=== PATIENT | female | born 1940 | race Caucasian/White ===

== ENCOUNTER → 2016-09-27 | Outpatient (CLI) | payer OTHER, BC ==
[~2016-09-27] MED LIST: ACET-1256 PO; ASPI81TA21 PO; ATOR-54 PO; B-CO1CAP5 PO; BIOT1TAB7 PO; CALCTAB65 PO; CHOL20005 PO; COEN1CAP10 PO; MAGNTAB17 PO; MULT-506 PO; OXYC1TAB3 PO; RXC5 PO; SNK PO
[2016-09-27 17:39] LABS: ALT/SGPT 24 U/L (12-78); BLOOD UREA NITROGEN 11 mg/dl (7-18); BUN/CREATININE RATIO 15.9 (10-20); CARBON DIOXIDE 25 mmol/L (21-32); CHLORIDE 108 mmol/L (98-107); CHOLESTEROL 205 mg/dl (0-200); CREATININE 0.69 mg/dl (0.60-1.20); GLUCOSE 83 mg/dl (70-99); POTASSIUM 4.1 mmol/L (3.5-5.1); SODIUM 144 mmol/L (136-145); TRIGLYCERIDES 137 mg/dl (0-150); VERY LOW DENSITY LIPOPROT CALC 27 mg/dl
[2016-09-27 17:42] LABS: ALB/GLOB RATIO 1.1 (0.9-2); ALKALINE PHOSPHATASE 66 U/L (45-117); AST/SGOT 13 U/L (15-37); CHOLESTEROL/HDL RATIO 3.3; HDL CHOLESTEROL 62 mg/dl; LDL CHOLESTEROL CALCULATED 116 mg/dl
== END | disposition home or self-care (01) ==
LOC: C.LABPVFM 14:33
PROVIDERS: ATTEND Family Medicine
DX: I10 Essential (primary) hypertension (principal); E78.5 Hyperlipidemia, unspecified; M85.80 Other specified disorders of bone density and structure, unspecified site; E55.9 Vitamin D deficiency, unspecified

== ENCOUNTER → 2016-11-18 | Outpatient (CLI) | payer OTHER, BC ==
--- NOTE | 2016-11-18 14:30 | MAMMOGRAPHY REPORT ---
UNILATERAL LEFT DIGITAL DIAGNOSTIC MAMMOGRAM TOMOSYNTHESIS WITH CAD AND TARGETED LEFT ULTRASOUND: CLINICAL HISTORY: The patient reports left breast pain for approximately 3 weeks, which started out as shooting pain across the breast and is now an intermittent dull pain. She denies a palpable lump . Reports a family history of breast cancer in her mother. TECHNIQUE: Breast tomosynthesis in addition to standard 2D mammography was performed. Current study was also evaluated with a Computer Aided Detection (CAD) system. Left CC and MLO 2-D and tomosynth esis images were obtained. COMPARISON: Comparison is made to exams dated: 01/04/2016 mammogram, 01/01/2015 mammogram, 11/04/2013 ma mmogram, 11/02/2012 mammogram, 10/19/2011 mammogram, and 09/22/2010 mammogram - [facility]ter. BREAST COMPOSITION: The tissue of the left breast is heterogeneously dense, which may obscure small masses. FINDINGS: There are no suspicious masses, calcifications, or areas of architectural distortion noted in the left breast. There has been no significant interval change compared to prior exams. Scatte red benign-appearing calcifications are stable. Targeted ultrasound was performed of the areas of pain pointed out by the patient, involving the lef t 3:00, 9:00, in subareolar breast as well as left upper inner quadrant. No suspicious masses or ot her suspicious sonographic abnormalities are evident. IMPRESSION: ACR BI-RADS CATEGORY 2: BENIGN, TARGETED ULTRASOUND ACR BI-RADS CATEGORY 2: BENIGN No suspicious mammographic or sonographic abnormality to explain left breast pain. There is no mamm ographic or targeted sonographic evidence of malignancy. Recommend clinical follow-up for breast pa in, and recommend routine bilateral exam exams which are due January 2017. The patient has been verball y notified of the results. Approximately 10% of breast cancers are not detected with mammography. A negative mammographic repor t should not delay biopsy if a clinically suggestive mass is present. Patti Rivera M.D. /:11/18/2016 08:53:15 [employer]: [employer], [facility] letter sent: Normal 1/2 BI-RADS Code: ACR BI-RADS Category 2: Benign Ultrasound BI-RADS: ACR BI-RADS Category 2: Benign
== END | disposition home or self-care (01) ==
LOC: C.MAMM 08:17
PROVIDERS: ATTEND Obstetrics & Gynecology
DX: R92.2 Inconclusive mammogram (principal); N64.4 Mastodynia; Z80.3 Family history of malignant neoplasm of breast

== ENCOUNTER → 2017-01-16 | Outpatient (CLI) | payer OTHER, BC ==
[2017-01-16 13:35] LABS: ALT/SGPT 24 U/L (12-78); BLOOD UREA NITROGEN 11 mg/dl (7-18); BUN/CREATININE RATIO 14.9 (10-20); CARBON DIOXIDE 29 mmol/L (21-32); CHLORIDE 105 mmol/L (98-107); CHOLESTEROL 196 mg/dl (0-200); CREATININE 0.71 mg/dl (0.60-1.20); GLUCOSE 90 mg/dl (70-99); POTASSIUM 4.2 mmol/L (3.5-5.1); SODIUM 140 mmol/L (136-145); TRIGLYCERIDES 102 mg/dl (0-150); VERY LOW DENSITY LIPOPROT CALC 20 mg/dl
[2017-01-16 13:38] LABS: ALB/GLOB RATIO 1.2 (0.9-2); ALKALINE PHOSPHATASE 62 U/L (45-117); AST/SGOT 20 U/L (15-37); CHOLESTEROL/HDL RATIO 3.6; HDL CHOLESTEROL 55 mg/dl; LDL CHOLESTEROL CALCULATED 121 mg/dl
[2017-01-16 13:58] LABS: CALCIUM 10.2 mg/dl (8.5-10.1)
== END | disposition home or self-care (01) ==
LOC: C.LABPVFM 09:24
PROVIDERS: ATTEND Family Medicine
DX: E55.9 Vitamin D deficiency, unspecified (principal); E78.5 Hyperlipidemia, unspecified; I10 Essential (primary) hypertension; M85.80 Other specified disorders of bone density and structure, unspecified site

== ENCOUNTER → 2017-02-02 | Outpatient (CLI) | payer OTHER, BC | END | disposition home or self-care (01) | LOC: C.MAMM 13:06 | PROVIDERS: ATTEND Family Medicine | DX: M85.89 Other specified disorders of bone density and structure, multiple sites (principal); E55.9 Vitamin D deficiency, unspecified ==

== ENCOUNTER → 2017-10-09 | Outpatient (CLI) | payer OTHER, BC ==
[2017-10-09 12:36] LABS: HEMATOCRIT 47.2 % (37-47); HEMOGLOBIN 15.8 g/dL (12.0-16.0); MEAN CELL VOLUME 90.2 fL (80-100); MEAN CORPUSCULAR HEMOGLOBIN 30.2 pg (25-34); MEAN CORPUSCULAR HGB CONC 33.5 g/dl (32-36); MEAN PLATELET VOLUME 11.2 fL (7.4-10.4); PLATELET COUNT 223 K/uL (130-400); RED CELL DISTRIBUTION WIDTH CV 15.1 % (11.5-14.5); RED CELL DISTRIBUTION WIDTH SD 50.4 fL (36.4-46.3)
[2017-10-09 13:37] LABS: ALBUMIN 3.8 gm/dl (3.4-5.0); ALT/SGPT 24 U/L (12-78); AST/SGOT 15 U/L (15-37); BLOOD UREA NITROGEN 12 mg/dl (7-18); CALCIUM 8.8 mg/dl (8.5-10.1); CARBON DIOXIDE 27 mmol/L (21-32); CHOLESTEROL 188 mg/dl (0-200); CREATININE 0.68 mg/dl (0.60-1.20); GLUCOSE 93 mg/dl (70-99); POTASSIUM 4.1 mmol/L (3.5-5.1); SODIUM 138 mmol/L (136-145)
[2017-10-09 13:47] LABS: ALKALINE PHOSPHATASE 68 U/L (45-117); LDL CHOLESTEROL CALCULATED 104 mg/dl; TOTAL PROTEIN 7.4 gm/dl (6.4-8.2)
== END | disposition home or self-care (01) ==
LOC: C.LABPVFM 10:37
PROVIDERS: ATTEND Family Medicine
DX: E55.9 Vitamin D deficiency, unspecified (principal); E78.5 Hyperlipidemia, unspecified

== ENCOUNTER → 2018-01-08 | Outpatient (CLI) | payer OTHER, BC ==
[~2018-01-08] MED LIST changes: +ASPI-319 PO; -ASPI81TA21 PO
--- NOTE | 2018-01-09 15:12 | MAMMOGRAPHY REPORT ---
BILATERAL DIGITAL SCREENING MAMMOGRAM TOMOSYNTHESIS WITH CAD: 01/08/2018 CLINICAL HISTORY: Routine screening. Patient has no complaints. TECHNIQUE: Breast tomosynthesis in addition to standard 2D mammography was performed. Current study was also evaluated with a Computer Aided Detection (CAD) system. COMPARISON: Comparison is made to exams dated: 01/05/2017 mammogram, 01/04/2016 mammogram, 01/01/2015 kamran mogram, 11/04/2013 mammogram, and 11/02/2012 mammogram - [facility]. BREAST COMPOSITION: The tissue of both breasts is heterogeneously dense, which may obscure small mas ses. FINDINGS: There is a newly visualized, 11 mm partially circumscribed and obscured mass in the upper outer middle one third of the left breast for which additional targeted ultrasound and possible addit ional mammographic views are recommended. There are stable bilateral groupings of punctate microcalcifications, and mild vascular calcification in the breasts. No other suspicious mass, architectural distortion or cluster of microcalcifications is seen. IMPRESSION: ACR BI-RADS CATEGORY 0: INCOMPLETE EVALUATION: NEED ADDITIONAL IMAGING EVALUATION The newly visualized, 11 mm, partially circumscribed and obscured mass in the upper outer quadrant of the left breast needs additional evaluation. The patient will be called to schedule an appointment. Approximately 10% of breast cancers are not detected with mammography. A negative mammographic report should not delay biopsy if a clinically suggestive mass is present. Renata Walker M.D. ay/:01/08/2018 15:12:34 A Auxiliary: [employer] WORK[employer])(Charlie), [facility] letter sent: Addl Imaging 0 BI-RADS Code: ACR BI-RADS Category 0: Incomplete Evaluation: Need Additional Imaging Evaluation
== END | disposition home or self-care (01) ==
LOC: C.MAMM 10:26
PROVIDERS: ATTEND Obstetrics & Gynecology
DX: Z12.31 Encounter for screening mammogram for malignant neoplasm of breast (principal); N63.21 Unspecified lump in the left breast, upper outer quadrant

== ENCOUNTER 2023-07-03 17:55 | Inpatient (IN) ==
--- NOTE | 2023-07-03 18:30 | ED Triage Note ---
Date of Service July 03, 2023 History of Present Illness This patient was briefly evaluated while in triage. An abbreviated physical exam was performed. This patient is a 83-year-old Female who presents to the ED for evaluation of injuries from a fall at home. According to EMS, it was a controlled fall. Patient had a previous fall with bilateral rib fractures and hip fracture. The patient was sent to rehab, and was discharged home. Patient has had several falls at home. The patient reports increasing weakness in her lower extremities. Patient has been taking oxycodone for pain. Patient does use a walker at home. EMS did have to go to her home a few days ago to assist her in getting up. Physical Exam CONSTITUTIONAL: Healthy and well nourished. Patient does not appear in any acute distress. HEENT: Normocephalic, atraumatic. RESPIRATORY: Clear to auscultation bilaterally with no wheezing, crackles, rhonchi or stridor. CARDIOVASCULAR: Regular rate and rhythm with no murmurs, rubs or gallops. GASTROINTESTINAL: Bowel sounds present in all quadrants. MUSCULOSKELETAL: Negative logroll bilaterally. INTEGUMENTARY: No rash or other significant dermatologic conditions noted. HEMATOLOGIC: No ecchymosis or petechiae. PSYCHIATRIC: Positive affect. NEUROLOGIC: Lower extremities are sensory intact. Initial orders for labs and / or imaging were placed and patient was placed in the waiting area until a bed is available. Please see further documentation for the full ED course. MDM / Impression Impression Impression: Weakness, Falling, Acute dehydration, Leukocytosis, Rhabdomyolysis Impression: Leukocytosis Qualifiers: Leukocytosis type: unspecified Qualified Code(s): D72.829 - Elevated white blood cell count, unspecified Rhabdomyolysis Qualifiers: Rhabdomyolysis type: traumatic Encounter type: initial encounter Qualified Code(s): T79.6XXA - Traumatic ischemia of muscle, initial encounter
[2023-07-03] MEDS ORDERED: fentaNYL citrate PF 100 MCG/2 ML VIAL IV STA (18:55)
[2023-07-03 19:12] LABS: Basophils # (auto) 0.02 K/uL (0.00-0.20); Basophils % (auto) 0.2 %; Eosinophils # (auto) 0.02 K/uL (0.00-0.50); Eosinophils % (auto) 0.2 %; Hematocrit (blood only) 38.6 % (37.0-47.0); Hemoglobin 13.2 g/dl (12.0-16.0); Immature Granulocytes # (auto) 0.06 K/uL (0.01-0.20); Immature Granulocytes % (auto) 0.5 %; Lymphocytes % (auto) 4.5 %; Mean Corpuscular Hemoglobin 29.8 pg (25.0-34.0); Mean Corpuscular Hgb Conc 34.2 g/dL (32.0-36.0); Mean Corpuscular Volume 87.1 fL (80.0-100.0); Mean Platelet Volume 10.8 fL (9.4-12.4); Monocytes # (auto) 0.94 K/uL (0.11-0.59); Monocytes % (auto) 7.1 %; Neutrophils # (auto) 11.58 K/uL (1.40-6.50); Neutrophils % (auto) 87.5 %; Platelet Count 182 K/uL (130-400); RDW Coefficient of Variation 13.2 % (11.5-14.5); RDW Standard Deviation 42.1 fL (36.4-46.3); Red Blood Count 4.43 M/uL (4.20-5.40); White Blood Count 13.22 K/ul (4.8-10.8)
[2023-07-03 19:26] LABS: Albumin Globulin Ratio 1.5 (0.9-2); Albumin Level 4.2 gm/dl (3.4-5.0); BUN Creatinine Ratio 25.4 (10-20); Calcium 9.7 mg/dl (8.6-10.3); Creatinine Clr Calc Pharmacy 70.9 ml/min; Est GFR (African American) 99.6 ml/min; Globulin 2.8 gm/dl (2.5-4.0); Magnesium 2.1 mg/dl (1.7-2.4); Potassium 4.5 mmol/L (3.5-5.1)
[2023-07-03 19:32] LABS: Troponin I High Sensitivity 9.2 pg/ml (0-14)
--- NOTE | 2023-07-03 19:57 | CT Scan Report ---
Exam(s): CT HEAD Without Contrast EXAM: CT Head Without Intravenous Contrast CLINICAL HISTORY: Reason for exam: Multiple falls. TECHNIQUE: Axial computed tomography images of the head/brain without intravenous contrast. CTDI is 38.64 mGy and DLP is 702.46 mGy-cm. Automated exposure control was utilized for the study. A dose lowering technique was utilized adhering to the principles of ALARA. COMPARISON: No relevant prior studies available. FINDINGS: No acute intracranial hemorrhage. No midline shift or mass effect. The territorial agrawal-white matter differentiation is maintained throughout. Age-related cerebral volume loss. Periventricular and subcortical white matter hypoattenuation, consistent with chronic microangiopathy. The visualized orbits appear grossly unremarkable. The calvarium is intact. The visualized paranasal sinuses and mastoid air cells are grossly clear. IMPRESSION: No acute intracranial hemorrhage, midline shift, or mass effect. Electronically signed by: Bret Hawley MD 07/03/23 19:56 PM
--- NOTE | 2023-07-03 20:02 | CT Scan Report ---
Exam(s): CT L SPINE EXAM: CT Lumbar Spine Without Intravenous Contrast CLINICAL HISTORY: Reason for exam: LBP s/p fall. TECHNIQUE: Axial computed tomography images of the lumbar spine without intravenous contrast. CTDI is 39.4 mGy and DLP is 1052.74 mGy-cm. Automated exposure control was utilized for the study. A dose lowering technique was utilized adhering to the principles of ALARA. COMPARISON: No relevant prior studies available. FINDINGS: The vertebral body heights are maintained. The lumbar lordosis is preserved. There is no spondylolisthesis. The posterior elements are maintained, without evidence of acute fracture. The pedicles are intact. Multilevel lumbar spondylosis and degenerative disc disease. IMPRESSION: No acute fracture or subluxation of the lumbar spine. Electronically signed by: Bret Hawley MD 07/03/23 20:02 PM
[2023-07-03 20:36] LABS: Appearance Urine Clear (Clear); Bacteria Urine Automated Negative (Negative); Bilirubin Urine Negative (Negative); Blood Urine Negative (Negative); Color Urine Dark Yellow; Glucose Urine UA Negative (Negative); Ketones Urine 4+ (Negative); Leukocyte Esterase Urine Negative (Negative); Nitrite Urine Negative (Negative); Protein Urine 1+ (Negative); RBC Urine Automated 0-4 /hpf (0-4); Specific Gravity Urine 1.032 (1.000-1.030); Urobilinogen Urine Negative (Negative)
[2023-07-03] MEDS ORDERED: SODIUM CHLORIDE 0.9% 1,000 ML IV ONE (20:38)
[2023-07-03] MEDS ORDERED: MoRPHine SULFATE 4 MG/ML 1 ML CARP\\VIAL IM PRN (20:53)
[2023-07-03] MEDS ORDERED: ONDANSETRON INJ 2 MG/ML 2 ML VIAL IV STA (20:53)
[2023-07-03] MEDS ORDERED: MoRPHine SULFATE 4 MG/ML 1 ML CARP\\VIAL IV STA (20:53)
--- NOTE | 2023-07-03 21:07 | Emergency Department Note ---
Impression & Plan Weakness, Falling, Acute dehydration, Leukocytosis, Rhabdomyolysis ED Provider Note NAME: SIMON BARNES AGE: 83 SEX: F : 1940 ARRIVES VIA: Ambulance INFORMANT: [Patient][ems] ED PROVIDER(S): [Aaron Bowman MD] CHIEF COMPLAINT: Weakness, falling, pelvic pain HISTORY OF PRESENT ILLNESS: The patient is an 83-year-old female who had rib fractures,a pubic ramus fracture and sternal fracture from a fall in [place] last month. She was in [facility] and then at rehab. She left rehab about 3 weeks ago. She was doing well. She does live alone. She states that 2 days ago, she fell trying to get out of her chair and, had to lay on the floor for a while. She eventually called EMS and they helped her up. Today, she had a controlled fall to the ground because her legs gave out. She states that she cannot care for herself right now at home. She has not had much to eat or drink in 2 days. She complains of some lower abdomen and pelvic pain since falling 2 days ago. There is no headache or neck pain, no chest pain. She has not had fever, chills, cough or congestion. She states that the pelvic and lower abdominal pain worsens with any movement. She did have some leftover oxycodone at home, she tried this for discomfort. In route to the hospital, EMS administered IV fentanyl which has worn off. PMHx/PSHx/Social Hx: See Below PHYSICAL EXAM: GENERAL: Patient is in no acute distress. HEENT: No acute trauma, normocephalic atraumatic, mucous membranes moist, no nasal congestion. NECK: No stridor, no adenopathy, no meningismus, trachea is midline. LUNGS: Clear to auscultation bilaterally, no wheeze, no rhonchi, breath sounds equal. Diminished breath sounds bilaterally. HEART: 4/6 systolic murmur, regular rate and rhythm. ABDOMEN: Soft, nontender, no peritonitis. EXTREMITIES: No cyanosis, full range of motion of all the joints without pain or difficulty. NEUROLOGIC: Oriented x 3, no acute motor or sensory deficits, no focal weakness. SKIN: No jaundice, no diaphoresis. Pelvis: Stable to rock. DIFFERENTIAL DIAGNOSIS: Compression fracture, pelvic fracture, intra-abdominal bleeding, dehydration, electrolyte imbalance, pneumonia, UTI, among others. EMERGENCY DEPARTMENT PROCEDURES: MEDICAL DECISION MAKING: There is a mild leukocytosis, this could be consistent with infection or just the stress of falling. There is a normal hemoglobin and platelet count. No electrolyte abnormality, no renal failure. No concerning liver enzyme elevation. ECG shows a normal sinus rhythm, no obvious acute ischemia. Cardiac enzyme testing x1 is not consistent with acute cardiac injury. Total CK is elevated, this is likely consistent with some mild rhabdomyolysis. The patient appeared to be in a euthyroid state. Urinalysis showed significant dehydration with 4+ ketones. No UTI. Chest film showed some parenchymal congestion/atelectasis. I did not see any focal pneumonia. Lumbar spine CT showed no acute fracture. Brain CT showed no acute bleed or mass effect. Abdominal and pelvis CT suggest some atelectasis or lower lobe pneumonia. No acute findings within the abdomen or pelvis. No acute fractures of the pelvis. The patient presents with increasing weakness, falling. She has not had much to eat or drink in 2 days. She lives alone. At 1 point, she was on the floor for some time. She appears to have developed some mild rhabdomyolysis. The patient requires a hospital stay. I did speak with her about staying in the hospital. I did speak with case management and the on-call hospitalist. Patient was given IV morphine, IV Zofran, IV saline. She is currently resting comfortably. Prior/Outside records/notes reviewed: Recent family practice note. ECG per my interpretation: Indication was weakness. The ECG shows what appears to be a normal sinus rhythm with some sinus arrhythmia. The rate is 88. There is LVH present. There is some poor R wave progression. There is a potential old anterior lateral infarct. There is no ST elevation, no PVCs. The QTc is 430. Continuous Cardiac Monitoring per my interpretation: An order was placed for continuous cardiac monitoring. The monitor shows a rate of 90 with normal sinus rhythm. Imaging/x-ray results per my interpretation: Chest x-ray shows some chronic change and some potential mild CHF versus a poor inspiratory effort. No obvious pneumonia. Chronic Medical/Social conditions affecting care: Lives alone, advanced age Care/Management discussed with: Case management, on-call hospitalist--Dr. Arellano. 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 Family History Father COPD (chronic obstructive pulmonary disease) Mother Breast cancer Other No family history of adverse response to anesthesia Denies family history of Ovarian cancer Prostate cancer Myocardial infarction Colorectal cancer Social History Smoking Status: Former smoker Second Hand Exposure: No; Do You Dip or Chew Tobacco: No; Hx Alcohol Use: Yes Alcohol type: wine Alcohol Intake Frequency: Monthly or Less Hx Substance Use: No Preferred Language: Greenlandic Communication Ability: Effective Visual Impairment: No Limitations Hearing Ability: Normal Overnight Cashier Required: No Beliefs That Will Affect Care: None marital status: / Current Living Situation: Alone current occupational status: retired How many Children do You have: 2 Feels Safe at Home: Yes Childhood Exposure to Second-Hand Smoke: Yes Diet: regular caffeine: Yes during the past year weight has: remained stable Dental Care, Regularly: Yes Physical Activity Frequency: Daily Seatbelt Use: always Sunscreen Use: Yes Do you think of yourself as: straight/heterosexual Gender Identity: Female Assistive Devices: Stair Lift Allergies Allergies Allergy/AdvReac Type Severity Reaction Status Date / Time bacitracin Allergy Mild SITE Verified 07/03/23 21:19 SWELLING WITH TOPICAL NEOSPORIN neomycin Allergy Mild SITE Verified 07/03/23 21:19 SWELLING WITH TOPICAL NEOSPORIN polymyxin B Allergy Mild SITE Verified 07/03/23 21:19 SWELLING WITH TOPICAL NEOSPORIN adhesive AdvReac Intermediate SKIN RASH Verified 07/03/23 21:19 AFTER KNEE SURGERY-USES PAPER TAPE Home Meds Home Medications Medication Instructions Recorded Confirmed atorvastatin 20 mg tablet 20 mg PO QPM 05/20/23 07/03/23 acetaminophen 325 mg tablet 650 mg PO Q6H PRN Pain 06/06/23 07/03/23 amlodipine 5 mg tablet 5 mg PO DAILY 06/06/23 07/03/23 polyethylene glycol 3350 17 17 g PO DAILY PRN Constipation 06/06/23 07/03/23 gram/dose oral powder (Miralax) benzocaine 15 mg-menthol 10 mg 1 kaden PO DIRECTED PRN Cough 07/03/23 07/03/23 lozenges Results & Data (ED) Vital Signs Vital Signs - 24 hr 07/03/23 18:26 07/03/23 18:40 07/03/23 18:40 Temperature 36.9 C Temperature Source Temporal Artery Scan Pulse Rate 93 H 87 Pulse Rate [Apical] Pulse Rhythm [Apical] Pulse Strength [Apical] Respiratory Rate 18 24 Respiratory Effort / Characteristics Non-Labored Spontaneous Respiratory Depth Normal Respiratory Pattern Regular Blood Pressure 134/84 Blood Pressure [Right Arm] 143/88 H Blood Pressure Mean 100 Blood Pressure Mean [Right Arm] 106 Blood Pressure Position [Right Arm] Pulse Oximetry 91 90 93 Oxygen Delivery Method Room Air Nasal Cannula Nasal Cannula Oxygen Flow Rate 2 2 Sepsis Recent Fever Within 48 Hours No Sepsis New/Unexplained Change in Mental Status N/A Sepsis Action Taken by Nursing No Action Required 07/03/23 18:45 07/03/23 22:38 07/03/23 23:32 Temperature Temperature Source Pulse Rate 90 94 H Pulse Rate [Apical] 85 Pulse Rhythm [Apical] Regular Pulse Strength [Apical] Normal Respiratory Rate 17 Respiratory Effort / Characteristics Non-Labored Spontaneous Respiratory Depth Normal Respiratory Pattern Regular Blood Pressure Blood Pressure [Right Arm] 124/71 Blood Pressure Mean Blood Pressure Mean [Right Arm] 88 Blood Pressure Position [Right Arm] Semi-fowlers Pulse Oximetry 96 Oxygen Delivery Method Nasal Cannula Oxygen Flow Rate 2 Sepsis Recent Fever Within 48 Hours Sepsis New/Unexplained Change in Mental Status Sepsis Action Taken by [facility]pc Medications Current Medication List: was personally reviewed by me Laboratory Data Attestation: I reviewed the patient's lab results. 07/03/23 18:50 07/03/23 18:50 Lab Results 07/03/23 07/03/23 07/03/23 Range/Units 18:50 18:50 20:25 WBC 13.22 H (4.8-10.8) K/ul RBC 4.43 (4.20-5.40) M/uL Hgb 13.2 (12.0-16.0) g/dl Hct 38.6 (37.0-47.0) % MCV 87.1 (80.0-100.0) fL MCH 29.8 (25.0-34.0) pg MCHC 34.2 (32.0-36.0) g/dL RDW Std Deviation 42.1 (36.4-46.3) fL RDW Coeff of Randi 13.2 (11.5-14.5) % Plt Count 182 (130-400) K/uL MPV 10.8 (9.4-12.4) fL Immature Gran % (Auto) 0.5 % Neut % (Auto) 87.5 % Lymph % (Auto) 4.5 % [place] % (Auto) 7.1 % Eos % (Auto) 0.2 % Baso % (Auto) 0.2 % Neut # (Auto) 11.58 H (1.40-6.50) K/uL Lymph # (Auto) 0.60 L (1.20-3.40) K/uL [place] # (Auto) 0.94 H (0.11-0.59) K/uL Eos # (Auto) 0.02 (0.00-0.50) K/uL Baso # (Auto) 0.02 (0.00-0.20) K/uL Immature Gran # (Auto) 0.06 (0.01-0.20) K/uL Sodium 136 (136-145) mmol/L Potassium 4.5 (3.5-5.1) mmol/L Chloride 100 (98-107) mmol/L Carbon Dioxide 28 (21-32) mmol/L Anion Gap 8 (3-11) BUN 15 (6-23) mg/dl Creatinine 0.59 L (0.6-1.2) mg/dl Est Cr Clr Drug Dosing 70.9 ml/min Est GFR ( Amer) 99.6 ml/min Est GFR (Non-Af Amer) 86.0 ml/min BUN/Creatinine Ratio 25.4 H (10-20) Glucose 92 (70-99(Fasting)) mg/dl Calcium 9.7 (8.6-10.3) mg/dl Magnesium 2.1 (1.7-2.4) mg/dl Total Bilirubin 1.0 (0.2-1.0) mg/dl AST 36 (13-39) U/L ALT 22 (7-52) U/L Alkaline Phosphatase 81 (34-104) U/L Total Creatine Kinase 557 H (26-192) U/L Troponin I High Sens 9.2 (0-14) pg/ml Total Protein 7.0 (6.0-8.3) gm/dl Albumin 4.2 (3.4-5.0) gm/dl Globulin 2.8 (2.5-4.0) gm/dl Albumin/Globulin Ratio 1.5 (0.9-2) TSH 1.242 (0.300-4.500) uIu/ml Urine Color Dark Yellow Urine Appearance Clear (Clear) Urine pH 6.0 (4.5-7.5) Ur Specific [place] 1.032 H (1.000-1.030) Urine Protein 1+ H (Negative) Urine Glucose (UA) Negative (Negative) Urine Ketones 4+ H (Negative) Urine Blood Negative (Negative) Urine Nitrite Negative (Negative) Urine Bilirubin Negative (Negative) Urine Urobilinogen Negative (Negative) Ur Leukocyte Esterase Negative (Negative) Urine WBC (Auto) 1-5 (0-5) /hpf Urine RBC (Auto) 0-4 (0-4) /hpf U Hyaline Cast (Auto) 5-10 H (0-5) /lpf U Epithel Cells (Auto) 10-20 H (0-5) /lpf Urine Bacteria (Auto) Negative (Negative) Administered Medications Morphine Sulfate (Morphine Sulfate 4 Mg/Ml 1 Ml Carp\Vial) 4 mg IM Q30M PRN PRN Reason: Pain Stop: 07/17/23 20:52 Last Admin: 07/03/23 22:16 Dose: 4 mg Documented By: DELBERT Discontinued Medications Fentanyl Citrate (Fentanyl Citrate Pf 100 Mcg/2 Ml Vial) 50 mcg IV NOW STA Stop: 07/03/23 18:56 Last Admin: 07/03/23 18:59 Dose: 50 mcg Documented By: ACC Sodium Chloride (Nss) 1,000 mls @ 999 mls/hr IV .Q1H1M ONE Stop: 07/03/23 21:38 Last Infusion: 07/03/23 23:25 Dose: 0 mls/hr Documented By: Admin: 07/03/23 21:16 Dose: 999 mls/hr Documented By: DELBERT Sodium Chloride (Nss) 500 mls @ 999 mls/hr IV .Q31M ONE Stop: 07/03/23 22:27 Last Infusion: 07/03/23 23:25 Dose: 0 mls/hr Documented By: Admin: 07/03/23 22:15 Dose: 999 mls/hr Documented By: DELBERT Morphine Sulfate (Morphine Sulfate 4 Mg/Ml 1 Ml Carp\Vial) 4 mg IV NOW STA Stop: 07/03/23 20:54 Last Admin: 07/03/23 21:16 Dose: 4 mg Documented By: DELBERT Ondansetron HCl (Ondansetron Inj 2 Mg/Ml 2 Ml Vial) 4 mg IV NOW STA Stop: 07/03/23 20:54 Last Admin: 07/03/23 21:16 Dose: 4 mg Documented By: DELBERT Imaging Data Radiologist's Impression: Lumbar Spine CT 07/03/23 18:30 Exam(s): CT L SPINE EXAM: CT Lumbar Spine Without Intravenous Contrast CLINICAL HISTORY: Reason for exam: LBP s/p fall. TECHNIQUE: Axial computed tomography images of the lumbar spine without intravenous contrast. CTDI is 39.4 mGy and DLP is 1052.74 mGy-cm. Automated exposure control was utilized for the study. A dose lowering technique was utilized adhering to the principles of ALARA. COMPARISON: No relevant prior studies available. FINDINGS: The vertebral body heights are maintained. The lumbar lordosis is preserved. There is no spondylolisthesis. The posterior elements are maintained, without evidence of acute fracture. The pedicles are intact. Multilevel lumbar spondylosis and degenerative disc disease. IMPRESSION: No acute fracture or subluxation of the lumbar spine. Electronically signed by: Bret Hawley MD 07/03/23 20:[address] 07/03/23 18:31 Exam(s): CT HEAD Without Contrast EXAM: CT Head Without Intravenous Contrast CLINICAL HISTORY: Reason for exam: Multiple falls. TECHNIQUE: Axial computed tomography images of the head/brain without intravenous contrast. CTDI is 38.64 mGy and DLP is 702.46 mGy-cm. Automated exposure control was utilized for the study. A dose lowering technique was utilized adhering to the principles of ALARA. COMPARISON: No relevant prior studies available. FINDINGS: No acute intracranial hemorrhage. No midline shift or mass effect. The territorial agrawal-white matter differentiation is maintained throughout. Age-related cerebral volume loss. Periventricular and subcortical white matter hypoattenuation, consistent with chronic microangiopathy. The visualized orbits appear grossly unremarkable. The calvarium is intact. The visualized paranasal sinuses and mastoid air cells are grossly clear. IMPRESSION: No acute intracranial hemorrhage, midline shift, or mass effect. Electronically signed by: Bret Hawley MD 07/03/23 19:56 PM Abdomen/Pelvis CT 07/03/23 20:53 Exam(s): CT ABDOMEN + PELVIS Without Contrast EXAM: CT Abdomen and Pelvis Without Intravenous Contrast CLINICAL HISTORY: Reason for exam: fall, low abd and pelvic pain. TECHNIQUE: Axial computed tomography images of the abdomen and pelvis without intravenous contrast. CTDI is 34.81 mGy and DLP is 1497.43 mGy-cm. Automated exposure control was utilized for the study. A dose lowering technique was utilized adhering to the principles of ALARA. COMPARISON: No relevant prior studies available. FINDINGS: Lung bases: Airspace consolidation at the lung bases, correlate for pneumonia/aspiration. Small bilateral pleural effusions. ABDOMEN: Liver: Unremarkable. Gallbladder and bile ducts: Cholecystectomy. No ductal dilation. Pancreas: Unremarkable. No ductal dilation. Spleen: Unremarkable. No splenomegaly. Adrenals: Unremarkable. No mass. Kidneys and ureters: Unremarkable. No hydronephrosis or nephrolithiasis. Stomach and bowel: Diverticulosis, without acute diverticulitis. No small bowel obstruction. No free intraperitoneal air. PELVIS: Appendix: Normal appendix. Bladder: Unremarkable. No stones. Reproductive: Pessary in the pelvis. Atrophied uterus. ABDOMEN and PELVIS: Intraperitoneal space: Unremarkable. No free air. No significant fluid collection. Bones/joints: Degenerative changes of the spine. Old fractures of the LEFT inferior pubic ramus and anterior column of the LEFT acetabulum. No dislocation. Soft tissues: Unremarkable. Vasculature: Atherosclerotic changes of the aorta. No abdominal aortic aneurysm. Lymph nodes: Unremarkable. No enlarged lymph nodes. IMPRESSION: 1. No hydronephrosis or nephrolithiasis. 2. Normal appendix. 3. Airspace consolidation at the lung bases, correlate for pneumonia/aspiration. Small bilateral pleural effusions. 4. Cholecystectomy. 5. Diverticulosis, without acute diverticulitis. No small bowel obstruction. No free intraperitoneal air. 6. Old fractures of the LEFT inferior pubic ramus and anterior column of the LEFT acetabulum. Electronically signed by: Bret Hawley MD 07/03/23 22:00 PM Discharge Plan Visit Data Chief Complaint: Leg Weakness, Bilateral Stated Complaint: INCREASED WEAKNESS, CONTINUED PAIN ED Provider: Aaron Bowman Discharge Problem: Weakness, Falling, Acute dehydration, Leukocytosis, Rhabdomyolysis Patient Disposition: Admitted As Inpatient Condition: Fair Forms Stand Alone Forms: [facility] Prescriptions Prescriptions: No Action acetaminophen 325 mg tablet 650 mg PO Q6H PRN (Reason: Pain) amlodipine 5 mg tablet 5 mg PO DAILY polyethylene glycol 3350 [Miralax] 17 gram/dose powder 17 g PO DAILY PRN (Reason: Constipation) atorvastatin 20 mg tablet 20 mg PO QPM benzocaine-menthol 15-10 mg Lozenge 1 kaden PO DIRECTED PRN (Reason: Cough) Referrals Referrals: Rayne Boucher MD [Primary Care Provider] -
[2023-07-03] MEDS ORDERED: SODIUM CHLORIDE 0.9% 500 ML IV ONE (21:57)
--- NOTE | 2023-07-03 22:00 | CT Scan Report ---
Exam(s): CT ABDOMEN + PELVIS Without Contrast EXAM: CT Abdomen and Pelvis Without Intravenous Contrast CLINICAL HISTORY: Reason for exam: fall, low abd and pelvic pain. TECHNIQUE: Axial computed tomography images of the abdomen and pelvis without intravenous contrast. CTDI is 34.81 mGy and DLP is 1497.43 mGy-cm. Automated exposure control was utilized for the study. A dose lowering technique was utilized adhering to the principles of ALARA. COMPARISON: No relevant prior studies available. FINDINGS: Lung bases: Airspace consolidation at the lung bases, correlate for pneumonia/aspiration. Small bilateral pleural effusions. ABDOMEN: Liver: Unremarkable. Gallbladder and bile ducts: Cholecystectomy. No ductal dilation. Pancreas: Unremarkable. No ductal dilation. Spleen: Unremarkable. No splenomegaly. Adrenals: Unremarkable. No mass. Kidneys and ureters: Unremarkable. No hydronephrosis or nephrolithiasis. Stomach and bowel: Diverticulosis, without acute diverticulitis. No small bowel obstruction. No free intraperitoneal air. PELVIS: Appendix: Normal appendix. Bladder: Unremarkable. No stones. Reproductive: Pessary in the pelvis. Atrophied uterus. ABDOMEN and PELVIS: Intraperitoneal space: Unremarkable. No free air. No significant fluid collection. Bones/joints: Degenerative changes of the spine. Old fractures of the LEFT inferior pubic ramus and anterior column of the LEFT acetabulum. No dislocation. Soft tissues: Unremarkable. Vasculature: Atherosclerotic changes of the aorta. No abdominal aortic aneurysm. Lymph nodes: Unremarkable. No enlarged lymph nodes. IMPRESSION: 1. No hydronephrosis or nephrolithiasis. 2. Normal appendix. 3. Airspace consolidation at the lung bases, correlate for pneumonia/aspiration. Small bilateral pleural effusions. 4. Cholecystectomy. 5. Diverticulosis, without acute diverticulitis. No small bowel obstruction. No free intraperitoneal air. 6. Old fractures of the LEFT inferior pubic ramus and anterior column of the LEFT acetabulum. Electronically signed by: Bret Hawley MD 07/03/23 22:00 PM
[2023-07-03 22:09] LABS: Thyroid Stimulating Hormone 1.242 uIu/ml (0.300-4.500)
--- NOTE | 2023-07-03 22:33 | History & Physical Report ---
Date of Service July 03, 2023 Assessment & Plan (1) Generalized weakness: (2) Acute dehydration: (3) Rhabdomyolysis: (4) Severe aortic stenosis: (5) Hyperlipidemia: (6) Fracture of pubic ramus with routine healing: (7) Multiple closed fractures of ribs of both sides: (8) Fall: Plan Generalized weakness/decreased oral intake/mild dehydration/rhabdomyolysis- Patient had been doing well from her previously noted fractures and pelvis and ribs, until she inadvertently tripped over the extended foot rest of her reclining chair 2 days ago, and then again today She reports that her oral intake has been significantly decreased, and feels generally weak on that basis and from decreased activity over the past few days. After initial injury, she did well with going to rehab, and feels that she would need to go to rehab again at this time. Consult PT/OT Consult director social welfare Avoid narcotics for pain control, as it makes patient become hypoxic Continue acetaminophen 600 mg every 6 hours as needed Rhabdomyolysis/dehydration- CK5 157, creatinine 0.59 Status post 2 L normal saline from the ED, which she reports has made her feel somewhat better. Hold on any additional IV fluids at this time Hypertension- Continue amlodipine History of Present Illness Chief Complaint: The patient has a history of multiple rib fractures, a left inferior pubic ramus fracture, and a left acetabulum fracture after a fall while in [place] last month. She had been at [facility], and was in a rehab, which she left about 3 weeks ago. She had been doing well, until about 2 days ago, when she when she tripped over a reclini she denies any ng chair, but appeared to have recovered from that, until she fell over the same chair again earlier today. She complains of lower abdominal pelvic pain since the fall 2 days ago, which is worsened after a fall again today. Precipitating event, reporting that she just tripped over the chair Primary Care Provider: Rayne Boucher MD The patient is an 83-year-old female with a past medical history including severe aortic stenosis, hyperlipidemia, hyperlipidemia, sleep apnea, hypertens ion, mechanical falls leading to fractures as noted above. She presents to the emergency department due to a return of and worsening of pain in her pelvis, after she initially injured herself over a month ago while in [place], and then reinjured herself a couple days ago and then again today. She reports that she is very fatigued at this time, feels very weak, and thinks that she probably needs to go back to rehab again. Allergies Allergy/AdvReac Type Severity Reaction Status Date / Time bacitracin Allergy Mild SITE Verified 07/03/23 21:19 SWELLING WITH TOPICAL NEOSPORIN neomycin Allergy Mild SITE Verified 07/03/23 21:19 SWELLING WITH TOPICAL NEOSPORIN polymyxin B Allergy Mild SITE Verified 07/03/23 21:19 SWELLING WITH TOPICAL NEOSPORIN adhesive AdvReac Intermediate SKIN RASH Verified 07/03/23 21:19 AFTER KNEE SURGERY-USES PAPER TAPE Home Medications Medication Instructions Recorded Confirmed Type atorvastatin 20 mg tablet 20 mg PO QPM 05/20/23 07/03/23 History acetaminophen 325 mg tablet 650 mg PO Q6H PRN Pain 06/06/23 07/03/23 History amlodipine 5 mg tablet 5 mg PO DAILY 06/06/23 07/03/23 History polyethylene glycol 3350 17 17 g PO DAILY PRN Constipation 06/06/23 07/03/23 History gram/dose oral powder (Miralax) benzocaine 15 mg-menthol 10 mg 1 kaden PO DIRECTED PRN Cough 07/03/23 07/03/23 History lozenges Past Med/Surg History Medical History (Updated 07/04/23 @ 04:05 by Roc Dacosta MD) Arthritis Benign essential hypertension no meds Cystocele, midline Hyperlipemia Osteopenia Rectocele Sleep apnea no device, wears mouth guard HS Tricuspid regurgitation Surgical History History of cholecystectomy History of colonoscopy History of total knee replacement R/L History of total shoulder replacement Rt Family History Father COPD (chronic obstructive pulmonary disease) Mother Breast cancer Other No family history of adverse response to anesthesia Denies family history of Ovarian cancer Prostate cancer Myocardial infarction Colorectal cancer Social History Smoking Status: Former smoker Second Hand Exposure: No; Do You Dip or Chew Tobacco: No; Hx Alcohol Use: Yes Alcohol type: wine Alcohol Intake Frequency: Monthly or Less Hx Substance Use: No Preferred Language: Greenlandic Communication Ability: Effective Visual Impairment: No Limitations Hearing Ability: Normal Roll Grinder Operator Required: No Beliefs That Will Affect Care: None marital status: / Current Living Situation: Alone Current Living Situation Comment: one level house current occupational status: retired How many Children do You have: 2 Feels Safe at Home: Yes Safety Concerns: Feels Safe At This Time Childhood Exposure to Second-Hand Smoke: Yes Diet: regular caffeine: Yes during the past year weight has: remained stable Dental Care, Regularly: Yes Physical Activity Frequency: Daily Seatbelt Use: always Sunscreen Use: Yes Do you think of yourself as: straight/heterosexual Gender Identity: Female Assistive Devices: Cane Review of Systems Review of Systems: The patient denies chest pain, palpitations, shortness of breath, dyspnea on exertion, cough, lower extremity swelling, sore throat, fevers, chills, sweats, nausea, vomiting, diarrhea , constipation, blood in urine or stool, dysuria, urinary frequency or urgency, lightheadedness, dizziness, headache, memory loss, loss of consciousness, rash, abnormal bruising or bleeding, focal weakness, numbness or tingling in arms or legs, generalized arthralgias or myalgias, neck pain, or night sweats. The review of systems is otherwise negative other than for that already noted above, and at least 10 systems have been reviewed. Physical Exam Physical Exam: The patient is awake, alert and oriented 3, looks very fatigued, normocephalic and atraumatic, lying in bed and in no acute distress. HEENT--PERRL, EOMI, mucous membranes and oropharynx mildly dry. Neck--supple. No JVD. No bruits. Thyroid normal, trachea midline, no adenopathy. Heart--normal S1 and S2. No murmurs, rubs or gallops. Lungs--clear bilaterally, no respiratory distress, no accessory muscle use. Abdomen--normal bowel sounds and soft. Nontender. Nondistended, no hernias or masses, no organomegaly. Extremities--no cyanosis or clubbing. No edema. There are good distal pulses b/l. Dermatologic--normal skin turgor, normal color, no abnormal lymph nodes, no rash. Neurologic--cranial nerves II through XII grossly intact. Rheumatologic--limited exam due to pelvic pain Psychiatric--normal affect. Results & Data Results & Data Vital Signs (Past 12 Hours) Vital Signs Temp Pulse Resp BP BP Pulse Ox O2 Del Method 07/03/23 18:45 90 07/03/23 18:40 87 93 Nasal Cannula 07/03/23 18:40 24 143/88 H 90 Nasal Cannula 07/03/23 18:26 36.9 C 93 H 18 134/84 91 Room Air O2 Flow Rate 07/03/23 18:45 07/03/23 18:40 2 07/03/23 18:40 2 07/03/23 18:26 Laboratory Results Laboratory Results WBC 13.22 K/ul (4.8-10.8) H 07/03/23 18:50 RBC 4.43 M/uL (4.20-5.40) 07/03/23 18:50 Hgb 13.2 g/dl (12.0-16.0) 07/03/23 18:50 Hct 38.6 % (37.0-47.0) 07/03/23 18:50 MCV 87.1 fL (80.0-100.0) 07/03/23 18:50 MCH 29.8 pg (25.0-34.0) 07/03/23 18:50 MCHC 34.2 g/dL (32.0-36.0) 07/03/23 18:50 RDW Std Deviation 42.1 fL (36.4-46.3) 07/03/23 18:50 RDW Coeff of Randi 13.2 % (11.5-14.5) 07/03/23 18:50 Plt Count 182 K/uL (130-400) 07/03/23 18:50 MPV 10.8 fL (9.4-12.4) 07/03/23 18:50 Immature Gran % (Auto) 0.5 % 07/03/23 18:50 Neut % (Auto) 87.5 % 07/03/23 18:50 Lymph % (Auto) 4.5 % 07/03/23 18:50 Randall % (Auto) 7.1 % 07/03/23 18:50 Eos % (Auto) 0.2 % 07/03/23 18:50 Baso % (Auto) 0.2 % 07/03/23 18:50 Neut # (Auto) 11.58 K/uL (1.40-6.50) H 07/03/23 18:50 Lymph # (Auto) 0.60 K/uL (1.20-3.40) L 07/03/23 18:50 Randall # (Auto) 0.94 K/uL (0.11-0.59) H 07/03/23 18:50 Eos # (Auto) 0.02 K/uL (0.00-0.50) 07/03/23 18:50 Baso # (Auto) 0.02 K/uL (0.00-0.20) 07/03/23 18:50 Immature Gran # (Auto) 0.06 K/uL (0.01-0.20) 07/03/23 18:50 Sodium 136 mmol/L (136-145) 07/03/23 18:50 Potassium 4.5 mmol/L (3.5-5.1) 07/03/23 18:50 Chloride 100 mmol/L (98-107) 07/03/23 18:50 Carbon Dioxide 28 mmol/L (21-32) 07/03/23 18:50 Anion Gap 8 (3-11) 07/03/23 18:50 BUN 15 mg/dl (6-23) 07/03/23 18:50 Creatinine 0.59 mg/dl (0.6-1.2) L 07/03/23 18:50 Est Cr Clr Drug Dosing 70.9 ml/min 07/03/23 18:50 Est GFR ( Amer) 99.6 ml/min 07/03/23 18:50 Est GFR (Non-Af Amer) 86.0 ml/min 07/03/23 18:50 BUN/Creatinine Ratio 25.4 (10-20) H 07/03/23 18:50 Glucose 92 mg/dl (70-99(Fasting)) 07/03/23 18:50 Calcium 9.7 mg/dl (8.6-10.3) 07/03/23 18:50 Magnesium 2.1 mg/dl (1.7-2.4) 07/03/23 18:50 Total Bilirubin 1.0 mg/dl (0.2-1.0) 07/03/23 18:50 AST 36 U/L (13-39) 07/03/23 18:50 ALT 22 U/L (7-52) 07/03/23 18:50 Alkaline Phosphatase 81 U/L (34-104) 07/03/23 18:50 Total Creatine Kinase 557 U/L (26-192) H 07/03/23 18:50 Troponin I High Sens 9.2 pg/ml (0-14) 07/03/23 18:50 Total Protein 7.0 gm/dl (6.0-8.3) 07/03/23 18:50 Albumin 4.2 gm/dl (3.4-5.0) 07/03/23 18:50 Globulin 2.8 gm/dl (2.5-4.0) 07/03/23 18:50 Albumin/Globulin Ratio 1.5 (0.9-2) 07/03/23 18:50 TSH 1.242 uIu/ml (0.300-4.500) 07/03/23 18:50 Urine Color Dark Yellow 07/03/23 20:25 Urine Appearance Clear (Clear) 07/03/23 20:25 Urine pH 6.0 (4.5-7.5) 07/03/23 20:25 Ur Specific [place] 1.032 (1.000-1.030) H 07/03/23 20:25 Urine Protein 1+ (Negative) H 07/03/23 20:25 Urine Glucose (UA) Negative (Negative) 07/03/23 20:25 Urine Ketones 4+ (Negative) H 07/03/23 20:25 Urine Blood Negative (Negative) 07/03/23 20:25 Urine Nitrite Negative (Negative) 07/03/23 20:25 Urine Bilirubin Negative (Negative) 07/03/23 20:25 Urine Urobilinogen Negative (Negative) 07/03/23 20:25 Ur Leukocyte Esterase Negative (Negative) 07/03/23 20:25 Urine WBC (Auto) 1-5 /hpf (0-5) 07/03/23 20:25 Urine RBC (Auto) 0-4 /hpf (0-4) 07/03/23 20:25 U Hyaline Cast (Auto) 5-10 /lpf (0-5) H 07/03/23 20:25 U Epithel Cells (Auto) 10-20 /lpf (0-5) H 10/30/23 20:25 Urine Bacteria (Auto) Negative (Negative) 07/03/23 20:[address] 07/03/23 18:30 Exam(s): CT L SPINE EXAM: CT Lumbar Spine Without Intravenous Contrast CLINICAL HISTORY: Reason for exam: LBP s/p fall. TECHNIQUE: Axial computed tomography images of the lumbar spine without intravenous contrast. CTDI is 39.4 mGy and DLP is 1052.74 mGy-cm. Automated exposure control was utilized for the study. A dose lowering technique was utilized adhering to the principles of ALARA. COMPARISON: No relevant prior studies available. FINDINGS: The vertebral body heights are maintained. The lumbar lordosis is preserved. There is no spondylolisthesis. The posterior elements are maintained, without evidence of acute fracture. The pedicles are intact. Multilevel lumbar spondylosis and degenerative disc disease. IMPRESSION: No acute fracture or subluxation of the lumbar spine. Electronically signed by: Bret Hawley MD 07/03/23 20:[address] 07/03/23 18:31 Exam(s): CT HEAD Without Contrast EXAM: CT Head Without Intravenous Contrast CLINICAL HISTORY: Reason for exam: Multiple falls. TECHNIQUE: Axial computed tomography images of the head/brain without intravenous contrast. CTDI is 38.64 mGy and DLP is 702.46 mGy-cm. Automated exposure control was utilized for the study. A dose lowering technique was utilized adhering to the principles of ALARA. COMPARISON: No relevant prior studies available. FINDINGS: No acute intracranial hemorrhage. No midline shift or mass effect. The territorial agrawal-white matter differentiation is maintained throughout. Age-related cerebral volume loss. Periventricular and subcortical white matter hypoattenuation, consistent with chronic microangiopathy. The visualized orbits appear grossly unremarkable. The calvarium is intact. The visualized paranasal sinuses and mastoid air cells are grossly clear. IMPRESSION: No acute intracranial hemorrhage, midline shift, or mass effect. Electronically signed by: Bret Hawley MD 07/03/23 19:56 PM Abdomen/Pelvis CT 07/03/23 20:53 Exam(s): CT ABDOMEN + PELVIS Without Contrast EXAM: CT Abdomen and Pelvis Without Intravenous Contrast CLINICAL HISTORY: Reason for exam: fall, low abd and pelvic pain. TECHNIQUE: Axial computed tomography images of the abdomen and pelvis without intravenous contrast. CTDI is 34.81 mGy and DLP is 1497.43 mGy-cm. Automated exposure control was utilized for the study. A dose lowering technique was utilized adhering to the principles of ALARA. COMPARISON: No relevant prior studies available. FINDINGS: Lung bases: Airspace consolidation at the lung bases, correlate for pneumonia/aspiration. Small bilateral pleural effusions. ABDOMEN: Liver: Unremarkable. Gallbladder and bile ducts: Cholecystectomy. No ductal dilation. Pancreas: Unremarkable. No ductal dilation. Spleen: Unremarkable. No splenomegaly. Adrenals: Unremarkable. No mass. Kidneys and ureters: Unremarkable. No hydronephrosis or nephrolithiasis. Stomach and bowel: Diverticulosis, without acute diverticulitis. No small bowel obstruction. No free intraperitoneal air. PELVIS: Appendix: Normal appendix. Bladder: Unremarkable. No stones. Reproductive: Pessary in the pelvis. Atrophied uterus. ABDOMEN and PELVIS: Intraperitoneal space: Unremarkable. No free air. No significant fluid collection. Bones/joints: Degenerative changes of the spine. Old fractures of the LEFT inferior pubic ramus and anterior column of the LEFT acetabulum. No dislocation. Soft tissues: Unremarkable. Vasculature: Atherosclerotic changes of the aorta. No abdominal aortic aneurysm. Lymph nodes: Unremarkable. No enlarged lymph nodes. IMPRESSION: 1. No hydronephrosis or nephrolithiasis. 2. Normal appendix. 3. Airspace consolidation at the lung bases, correlate for pneumonia/aspiration. Small bilateral pleural effusions. 4. Cholecystectomy. 5. Diverticulosis, without acute diverticulitis. No small bowel obstruction. No free intraperitoneal air. 6. Old fractures of the LEFT inferior pubic ramus and anterior column of the LEFT acetabulum. Electronically signed by: Bret Hawley MD 07/03/23 22:00 PM Code Status & VTE Plan Code Status Full code VTE Prophylaxis Plan VTE Prophylaxis will be ordered: Yes PG Care Time/CCT Total # of Minutes Spent Total Time Spent with Patient: Total time spent is greater than 50% in coordination of care (as documented) at patient's floor/unit and/or counseling patient: Coding Level of Care Code 08497 INT INP/OBS CARE 3/75MIN Diagnoses Generalized weakness R53.1 Acute dehydration E86.0 Rhabdomyolysis T79.6XXA Encounter type: initial encounter Rhabdomyolysis type: traumatic Severe aortic stenosis I35.0 Hyperlipidemia E78.5 Fracture of pubic ramus with routine healing S32.599D Multiple closed fractures of ribs of both sides S22.43XA Fall W19.XXXA (3) Rhabdomyolysis Encounter type: initial encounter Rhabdomyolysis type: traumatic Qualified Code(s): T79.6XXA - Traumatic ischemia of muscle, initial encounter
[2023-07-04] MEDS ORDERED: ONDANSETRON INJ 2 MG/ML 2 ML VIAL IV PRN (01:10)
[2023-07-04] MEDS ORDERED: ACETAMINOPHEN 325 MG TAB ONE (01:16)
[2023-07-04] MEDS: ACETAMINOPHEN 325 MG TAB PO PRN ×4 (01:23→20:31)
[2023-07-04] MEDS: COUGH DROP (SUGAR FREE) LOZ 24 LOZ/1 BOX BUCCAL PRN (01:30)
[2023-07-04] MEDS ORDERED: KETOROLAC TROMETHAMINE 15 MG/ML VIAL IV ONE (03:52)
--- NOTE | 2023-07-04 07:30 | XRay Report ---
XR chest 1V portable HISTORY: weakness COMPARISON: Chest 01/08/2016. FINDINGS: There are low lung volumes. The heart remains enlarged. No pneumothorax. There is a right s houlder prosthesis. Bibasilar linear densities are nonspecific and may represent atelectasis. A pneum onia could also have a similar appearance. There are trace bilateral pleural effusions. No evidence f or pulmonary edema. IMPRESSION: 1. Stable cardiomegaly. 2. Trace bilateral pleural effusions and bibasilar linear densities. These are nonspecific but favor subsegmental atelectasis. A pneumonia could also have a similar appearance. ACT 112: Negative or not required by law. Electronically signed by: Alvin Valdez M.D. 07/04/2023 7:29 AM
[2023-07-04 07:52] LABS: Basophils # (auto) 0.02 K/uL (0.00-0.20); Basophils % (auto) 0.3 %; Eosinophils # (auto) 0.06 K/uL (0.00-0.50); Eosinophils % (auto) 0.8 %; Hematocrit (blood only) 35.3 % (37.0-47.0); Hemoglobin 11.4 g/dl (12.0-16.0); Immature Granulocytes # (auto) 0.05 K/uL (0.01-0.20); Immature Granulocytes % (auto) 0.7 %; Lymphocytes # (auto) 0.72 K/uL (1.20-3.40); Lymphocytes % (auto) 9.6 %; Mean Corpuscular Hemoglobin 29.1 pg (25.0-34.0); Mean Corpuscular Hgb Conc 32.3 g/dL (32.0-36.0); Mean Corpuscular Volume 90.1 fL (80.0-100.0); Mean Platelet Volume 10.9 fL (9.4-12.4); Neutrophils # (auto) 5.78 K/uL (1.40-6.50); Neutrophils % (auto) 76.6 %; Platelet Count 152 K/uL (130-400); RDW Coefficient of Variation 13.2 % (11.5-14.5); RDW Standard Deviation 43.5 fL (36.4-46.3); Red Blood Count 3.92 M/uL (4.20-5.40); White Blood Count 7.53 K/ul (4.8-10.8)
--- NOTE | 2023-07-04 07:59 | Electrocardiogram Report ---
Test Reason : Blood Pressure : / mmHG Vent. Rate : 088 BPM Atrial Rate : 088 BPM P-R Int : 140 ms QRS Dur : 086 ms QT Int : 356 ms P-R-T Axes : 046 -18 028 degrees QTc Int : 430 ms Poor data quality, interpretation may be adversely affected Normal sinus rhythm with sinus arrhythmia Minimal voltage criteria for LVH, may be normal variant Anterolateral infarct (cited on or before 20-MAY-2023) Abnormal ECG When compared with ECG of 20-MAY-2023 15:34, No significant change was found Confirmed by Femi Lee ([id number]) on 07/04/2023 7:59:42 AM Referred By: REFERRED SELF Confirmed By:Edmundo Lee
[2023-07-04 08:05] LABS: Albumin Level 3.5 gm/dl (3.4-5.0); BUN Creatinine Ratio 24.4 (10-20); Calcium 8.5 mg/dl (8.6-10.3); Creatinine Clr Calc Pharmacy 90.8 ml/min; Est GFR (African American) 108.9 ml/min; Magnesium 1.9 mg/dl (1.7-2.4); Potassium 3.8 mmol/L (3.5-5.1)
[2023-07-04] MEDS: amLODIPine BESYLATE 5 MG TAB PO SCH (08:51)
[2023-07-04] MEDS ORDERED: oxyCODONE HCL IR 5 MG TAB (IMMEDIATE RELEASE) PO STA ×3 (09:11→18:16)
--- NOTE | 2023-07-04 14:48 | Hospitalist Progress Note ---
Date of Service July 04, 2023 Assessment & Plan (1) Generalized weakness: (2) Acute dehydration: (3) Rhabdomyolysis: (4) Severe aortic stenosis: (5) Hyperlipidemia: (6) Fracture of pubic ramus with routine healing: (7) Multiple closed fractures of ribs of both sides: (8) Fall: Plan Generalized weakness/decreased oral intake/mild dehydration/rhabdomyolysis- Patient had been doing well from her previously noted fractures and pelvis and ribs, until she inadvertently tripped over the extended foot rest of her reclining chair She reports that her oral intake has been significantly decreased, and feels generally weak on that basis and from decreased activity over the past few days. After initial injury, she did well with going to rehab, and feels that she would need to go to rehab again at this time. PT/OT and social worker clinical on board. Avoid narcotics for pain control, as it makes patient become hypoxic. Oxycodone ordered once. Will order Toradol Continue acetaminophen 600 mg every 6 hours as needed Rhabdomyolysis/dehydration- CK 557, creatinine 0.59 Status post 2 L normal saline from the ED, which she reports has made her feel somewhat better. Hold on any additional IV fluids at this time Encourage p.o. fluid intake Hypertension- Continue amlodipine Admission and Anticipated Discharge Date Admission Date: July 03, 2023 Subjective patient is very anxious that she could not stay at home. She had a decline in her ambulatory function. She denies any chest pain or shortness of breath. Review of Systems Review of Systems: All systems reviewed & are unremarkable except as noted in Subjective Physical Exam Physical Exam: General: Awake, conversant Heart: S1, S2/regular rate and rhythm, no rubs or gallops. 3/6 systolic murmur best heard in the right second intercostal space Lungs: Clear to auscultation bilaterally. Normal effort Abdomen: Soft/nontender/nondistended. No hepatosplenomegaly Extremities: No clubbing/cyanosis. No edema Behavior: Appropriate, cooperative Results & Data Results & Data Vital Signs (Past 12 Hours) Vital Signs Temp Pulse Pulse Resp BP BP Pulse Ox 07/04/23 11:46 36.6 C 77 18 100/63 95 07/04/23 09:59 81 07/04/23 07:54 36.5 C 83 18 122/66 95 07/04/23 03:12 36.7 C 78 18 135/79 94 O2 Del Method O2 Flow Rate 07/04/23 11:46 Nasal Cannula 2 07/04/23 09:59 07/04/23 07:54 Nasal Cannula 2 07/04/23 03:12 Nasal Cannula 2 Laboratory Results Abnormal lab results 07/03/23 07/03/23 07/03/23 Range/Units 18:50 18:50 20:25 WBC 13.22 H (4.8-10.8) K/ul RBC (4.20-5.40) M/uL Hgb (12.0-16.0) g/dl Hct (37.0-47.0) % Neut # (Auto) 11.58 H (1.40-6.50) K/uL Lymph # (Auto) 0.60 L (1.20-3.40) K/uL [place]ila # (Auto) 0.94 H (0.11-0.59) K/uL Creatinine 0.59 L (0.6-1.2) mg/dl BUN/Creatinine Ratio 25.4 H (10-20) Calcium (8.6-10.3) mg/dl Total Creatine Kinase 557 H (26-192) U/L Ur Specific [place] 1.032 H (1.000-1.030) Urine Protein 1+ H (Negative) Urine Ketones 4+ H (Negative) U Hyaline Cast (Auto) 5-10 H (0-5) /lpf U Epithel Cells (Auto) 10-20 H (0-5) /lpf 07/04/23 07/04/23 Range/Units 06:45 06:45 WBC (4.8-10.8) K/ul RBC 3.92 L (4.20-5.40) M/uL Hgb 11.4 L (12.0-16.0) g/dl Hct 35.3 L (37.0-47.0) % Neut # (Auto) (1.40-6.50) K/uL Lymph # (Auto) 0.72 L (1.20-3.40) K/uL [place] # (Auto) 0.90 H (0.11-0.59) K/uL Creatinine 0.45 L (0.6-1.2) mg/dl BUN/Creatinine Ratio 24.4 H (10-20) Calcium 8.5 L (8.6-10.3) mg/dl Total Creatine Kinase (26-192) U/L Ur Specific [place] (1.000-1.030) Urine Protein (Negative) Urine Ketones (Negative) U Hyaline Cast (Auto) (0-5) /lpf U Epithel Cells (Auto) (0-5) /lpf Diagnostic Findings Chest X-Ray 07/03/23 18:30 XR chest 1V portable HISTORY: weakness COMPARISON: Chest 01/08/2016. FINDINGS: There are low lung volumes. The heart remains enlarged. No pneumothorax. There is a right shoulder prosthesis. Bibasilar linear densities are nonspecific and may represent atelectasis. A pneumonia could also have a similar appearance. There are trace bilateral pleural effusions. No evidence for pulmonary edema. IMPRESSION: 1. Stable cardiomegaly. 2. Trace bilateral pleural effusions and bibasilar linear densities. These are nonspecific but favor subsegmental atelectasis. A pneumonia could also have a similar appearance. ACT 112: Negative or not required by law. Electronically signed by: Alvin Valdez M.D. 07/04/2023 7:[address] 07/03/23 18:30 Exam(s): CT L SPINE EXAM: CT Lumbar Spine Without Intravenous Contrast CLINICAL HISTORY: Reason for exam: LBP s/p fall. TECHNIQUE: Axial computed tomography images of the lumbar spine without intravenous contrast. CTDI is 39.4 mGy and DLP is 1052.74 mGy-cm. Automated exposure control was utilized for the study. A dose lowering technique was utilized adhering to the principles of ALARA. COMPARISON: No relevant prior studies available. FINDINGS: The vertebral body heights are maintained. The lumbar lordosis is preserved. There is no spondylolisthesis. The posterior elements are maintained, without evidence of acute fracture. The pedicles are intact. Multilevel lumbar spondylosis and degenerative disc disease. IMPRESSION: No acute fracture or subluxation of the lumbar spine. Electronically signed by: Bret Hawley MD 07/03/23 20:[address] 07/03/23 18:31 Exam(s): CT HEAD Without Contrast EXAM: CT Head Without Intravenous Contrast CLINICAL HISTORY: Reason for exam: Multiple falls. TECHNIQUE: Axial computed tomography images of the head/brain without intravenous contrast. CTDI is 38.64 mGy and DLP is 702.46 mGy-cm. Automated exposure control was utilized for the study. A dose lowering technique was utilized adhering to the principles of ALARA. COMPARISON: No relevant prior studies available. FINDINGS: No acute intracranial hemorrhage. No midline shift or mass effect. The territorial agrawal-white matter differentiation is maintained throughout. Age-related cerebral volume loss. Periventricular and subcortical white matter hypoattenuation, consistent with chronic microangiopathy. The visualized orbits appear grossly unremarkable. The calvarium is intact. The visualized paranasal sinuses and mastoid air cells are grossly clear. IMPRESSION: No acute intracranial hemorrhage, midline shift, or mass effect. Electronically signed by: Bret Hawley MD 07/03/23 19:56 PM Abdomen/Pelvis CT 07/03/23 20:53 Exam(s): CT ABDOMEN + PELVIS Without Contrast EXAM: CT Abdomen and Pelvis Without Intravenous Contrast CLINICAL HISTORY: Reason for exam: fall, low abd and pelvic pain. TECHNIQUE: Axial computed tomography images of the abdomen and pelvis without intravenous contrast. CTDI is 34.81 mGy and DLP is 1497.43 mGy-cm. Automated exposure control was utilized for the study. A dose lowering technique was utilized adhering to the principles of ALARA. COMPARISON: No relevant prior studies available. FINDINGS: Lung bases: Airspace consolidation at the lung bases, correlate for pneumonia/aspiration. Small bilateral pleural effusions. ABDOMEN: Liver: Unremarkable. Gallbladder and bile ducts: Cholecystectomy. No ductal dilation. Pancreas: Unremarkable. No ductal dilation. Spleen: Unremarkable. No splenomegaly. Adrenals: Unremarkable. No mass. Kidneys and ureters: Unremarkable. No hydronephrosis or nephrolithiasis. Stomach and bowel: Diverticulosis, without acute diverticulitis. No small bowel obstruction. No free intraperitoneal air. PELVIS: Appendix: Normal appendix. Bladder: Unremarkable. No stones. Reproductive: Pessary in the pelvis. Atrophied uterus. ABDOMEN and PELVIS: Intraperitoneal space: Unremarkable. No free air. No significant fluid collection. Bones/joints: Degenerative changes of the spine. Old fractures of the LEFT inferior pubic ramus and anterior column of the LEFT acetabulum. No dislocation. Soft tissues: Unremarkable. Vasculature: Atherosclerotic changes of the aorta. No abdominal aortic aneurysm. Lymph nodes: Unremarkable. No enlarged lymph nodes. IMPRESSION: 1. No hydronephrosis or nephrolithiasis. 2. Normal appendix. 3. Airspace consolidation at the lung bases, correlate for pneumonia/aspiration. Small bilateral pleural effusions. 4. Cholecystectomy. 5. Diverticulosis, without acute diverticulitis. No small bowel obstruction. No free intraperitoneal air. 6. Old fractures of the LEFT inferior pubic ramus and anterior column of the LEFT acetabulum. Electronically signed by: Bret Hawley MD 07/03/23 22:00 PM PG Care Time/CCT Total # of Minutes Spent Total Time Spent with Patient: Total time spent is greater than 50% in coordination of care (as documented) at patient's floor/unit and/or counseling patient: Coding Level of Care Code 06457 SUB INP/OBS CARE 2/35MIN Diagnoses Generalized weakness R53.1 Acute dehydration E86.0 Rhabdomyolysis T79.6XXA Encounter type: initial encounter Rhabdomyolysis type: traumatic Severe aortic stenosis I35.0 Hyperlipidemia E78.5 Fracture of pubic ramus with routine healing S32.599D Multiple closed fractures of ribs of both sides S22.43XA Fall W19.XXXA (3) Rhabdomyolysis Encounter type: initial encounter Rhabdomyolysis type: traumatic Qualified Code(s): T79.6XXA - Traumatic ischemia of muscle, initial encounter
[2023-07-04] MEDS: KETOROLAC TROMETHAMINE 10 MG TABLET PO PRN (15:49)
[2023-07-04] MEDS: ATORVASTATIN 20 MG TAB PO SCH (20:31)
[2023-07-05] MEDS: KETOROLAC TROMETHAMINE 10 MG TABLET PO PRN ×2 (00:54→08:43)
[2023-07-05] MEDS ORDERED: Nursing to Pharmacy Communication SCH (03:15)
[2023-07-05] MEDS: ACETAMINOPHEN 325 MG TAB PO PRN ×3 (05:09→19:32)
[2023-07-05] MEDS: amLODIPine BESYLATE 5 MG TAB PO SCH (07:40)
[2023-07-05 08:37] LABS: Basophils # (auto) 0.03 K/uL (0.00-0.20); Basophils % (auto) 0.4 %; Eosinophils # (auto) 0.13 K/uL (0.00-0.50); Eosinophils % (auto) 1.8 %; Hematocrit (blood only) 35.6 % (37.0-47.0); Hemoglobin 11.9 g/dl (12.0-16.0); Immature Granulocytes # (auto) 0.02 K/uL (0.01-0.20); Immature Granulocytes % (auto) 0.3 %; Lymphocytes # (auto) 0.59 K/uL (1.20-3.40); Mean Corpuscular Hemoglobin 29.2 pg (25.0-34.0); Mean Corpuscular Hgb Conc 33.4 g/dL (32.0-36.0); Mean Corpuscular Volume 87.3 fL (80.0-100.0); Mean Platelet Volume 10.3 fL (9.4-12.4); Monocytes # (auto) 0.71 K/uL (0.11-0.59); Monocytes % (auto) 9.6 %; Neutrophils # (auto) 5.92 K/uL (1.40-6.50); Neutrophils % (auto) 79.9 %; Platelet Count 167 K/uL (130-400); RDW Coefficient of Variation 12.9 % (11.5-14.5); RDW Standard Deviation 40.9 fL (36.4-46.3); Red Blood Count 4.08 M/uL (4.20-5.40)
[2023-07-05 08:50] LABS: Albumin Level 3.5 gm/dl (3.4-5.0); BUN Creatinine Ratio 16.3 (10-20); Creatinine Clr Calc Pharmacy 96.5 ml/min; Est GFR (African American) 110.6 ml/min; Est GFR (Non-African American) 95.4 ml/min; Magnesium 1.9 mg/dl (1.7-2.4); Phosphorus 3.1 mg/dl (2.5-4.9)
[2023-07-05] MEDS: POLYETHYLENE (MIRALAX) 17 GM PACK PO PRN (12:13)
[2023-07-05] MEDS: oxyCODONE HCL IR 5 MG TAB (IMMEDIATE RELEASE) PO PRN ×2 (14:22→23:23)
--- NOTE | 2023-07-05 15:06 | Hospitalist Progress Note ---
Date of Service July 05, 2023 Assessment & Plan (1) Generalized weakness: (2) Acute dehydration: (3) Rhabdomyolysis: (4) Severe aortic stenosis: (5) Hyperlipidemia: (6) Fracture of pubic ramus with routine healing: (7) Multiple closed fractures of ribs of both sides: (8) Fall: Plan Generalized weakness/decreased oral intake/mild dehydration/rhabdomyolysis- Patient had been doing well from her previously noted fractures and pelvis and ribs, until she inadvertently tripped over the extended foot rest of her reclining chair She reports that her oral intake has been significantly decreased, and feels generally weak on that basis and from decreased activity over the past few days. After initial injury, she did well with going to rehab, and feels that she would need to go to rehab again at this time. PT/OT and social science analyst on board. Patient is being treated with Toradol for pain control. Heating pad ordered as well. She is requesting oxycodone to be added to her regimen. She says that she tolerated it well the last time. Ordered oxycodone p.o. every 6 as needed pain Continue acetaminophen 600 mg every 6 hours as needed Rhabdomyolysis/dehydration- CK 557, creatinine 0.59 Status post 2 L normal saline from the ED, which she reports has made her feel s omewhat better. Hold on any additional IV fluids at this time Encourage p.o. fluid intake Hypertension- Continue amlodipine Admission and Anticipated Discharge Date Admission Date: July 03, 2023 Subjective patient is complaining of pain in the low back area. She is very anxious that she was not able to participate with therapy As she was limited due to pain. Review of Systems Review of Systems: All systems reviewed & are unremarkable except as noted in Subjective Physical Exam Physical Exam: General: Awake, conversant. Anxious appearing Heart: S1, S2/regular rate and rhythm, no rubs or gallops. 3/6 systolic murmur best heard in the right second intercostal space Lungs: Clear to auscultation bilaterally. Normal effort Abdomen: Soft/nontender/nondistended. No hepatosplenomegaly Extremities: No clubbing/cyanosis. No edema Behavior: Appropriate, cooperative Results & Data Results & Data Vital Signs (Past 12 Hours) Vital Signs Temp Pulse Pulse Resp BP BP Pulse Ox 07/05/23 07:00 77 07/05/23 11:26 36.7 C 76 20 156/78 H 94 07/05/23 07:45 07/05/23 07:30 36.9 C 71 18 163/81 H 94 07/05/23 03:23 36.7 C 78 18 147/77 H 93 O2 Del Method O2 Flow Rate 07/05/23 07:00 07/05/23 11:26 Nasal Cannula 2 07/05/23 07:45 Nasal Cannula 2 07/05/23 07:30 Nasal Cannula 2 07/05/23 03:23 Nasal Cannula 2 Laboratory Results Abnormal lab results 07/05/23 07/05/23 Range/Units 08:07 08:07 RBC 4.08 L (4.20-5.40) M/uL Hgb 11.9 L (12.0-16.0) g/dl Hct 35.6 L (37.0-47.0) % Lymph # (Auto) 0.59 L (1.20-3.40) K/uL [place] # (Auto) 0.71 H (0.11-0.59) K/uL Creatinine 0.43 L (0.6-1.2) mg/dl Glucose 105 H (70-99(Fasting)) mg/dl PG Care Time/CCT Total # of Minutes Spent Total Time Spent with Patient: Total time spent is greater than 50% in coordination of care (as documented) at patient's floor/unit and/or counseling patient: Coding Level of Care Code 25753 SUB INP/OBS CARE 2/35MIN Diagnoses Generalized weakness R53.1 Acute dehydration E86.0 Rhabdomyolysis T79.6XXA Encounter type: initial encounter Rhabdomyolysis type: traumatic Severe aortic stenosis I35.0 Hyperlipidemia E78.5 Fracture of pubic ramus with routine healing S32.599D Multiple closed fractures of ribs of both sides S22.43XA Fall W19.XXXA (3) Rhabdomyolysis Encounter type: initial encounter Rhabdomyolysis type: traumatic Qualified Code(s): T79.6XXA - Traumatic ischemia of muscle, initial encounter
[2023-07-05] MEDS ORDERED: LORazepam 2 MG/1 ML VIAL IV STA ×2 (18:30→22:11)
[2023-07-05] MEDS: ATORVASTATIN 20 MG TAB PO SCH (20:33)
--- NOTE | 2023-07-06 00:31 | Magnetic Resonance Report ---
Exam(s): MRI L SPINE Without Contrast EXAM: MR Lumbar Spine Without Intravenous Contrast CLINICAL HISTORY: Reason for exam: Back pain, b/l leg wkness r/o caudaequina syndrome. TECHNIQUE: Magnetic resonance images of the lumbar spine without intravenous contrast in multiple planes. COMPARISON: CT Abd/Pel 07-03-2023. FINDINGS: Vertebrae: There are 5 lumbar type vertebral bodies with a mild dextroscoliosis of normal lumbar lordosis. There is a mild grade 1 retrolisthesis of L1 on L2 measuring 2 mm. Otherwise, there is normal vertebral body height and alignment. The bone marrow signal is normal. There is a 2 column fracture of the T10 vertebral body with bulging the posterior wall into the spinal canal with moderate spinal canal stenosis. Spinal cord: There is edema within the cord at the level of T10 and T11. Soft tissues: Advanced atrophy of the iliopsoas, paraspinous intraspinous musculature. The aorta and IVC flow voids are intact. Left peripelvic renal cyst. Otherwise, the visualized kidneys are unremarkable. IMPRESSION: There is a 2 column fracture of the T10 vertebral body with bulging the posterior wall into the spinal canal with cord edema extending from T10- T11. Recommend MRI of the thoracic spine for further evaluation. No evidence of acute lumbar spine pathology. Communications: Verify Receipt Electronically signed by: Christine Ambrosio MD 07/06/23 00:30 AM
[2023-07-06] MEDS: KETOROLAC TROMETHAMINE 10 MG TABLET PO PRN ×2 (03:00→21:11)
[2023-07-06] MEDS: ACETAMINOPHEN 325 MG TAB PO PRN ×2 (05:18→12:06)
[2023-07-06] MEDS: oxyCODONE HCL IR 5 MG TAB (IMMEDIATE RELEASE) PO PRN ×3 (06:12→21:13)
[2023-07-06 07:36] LABS: Basophils # (auto) 0.03 K/uL (0.00-0.20); Basophils % (auto) 0.3 %; Eosinophils # (auto) 0.13 K/uL (0.00-0.50); Eosinophils % (auto) 1.4 %; Hematocrit (blood only) 35.4 % (37.0-47.0); Hemoglobin 11.7 g/dl (12.0-16.0); Immature Granulocytes # (auto) 0.02 K/uL (0.01-0.20); Immature Granulocytes % (auto) 0.2 %; Lymphocytes % (auto) 7.5 %; Mean Corpuscular Hgb Conc 33.1 g/dL (32.0-36.0); Mean Corpuscular Volume 87.8 fL (80.0-100.0); Mean Platelet Volume 10.1 fL (9.4-12.4); Monocytes # (auto) 0.82 K/uL (0.11-0.59); Monocytes % (auto) 8.8 %; Neutrophils # (auto) 7.66 K/uL (1.40-6.50); Neutrophils % (auto) 81.8 %; Platelet Count 188 K/uL (130-400); RDW Coefficient of Variation 12.8 % (11.5-14.5); Red Blood Count 4.03 M/uL (4.20-5.40); White Blood Count 9.36 K/ul (4.8-10.8)
[2023-07-06 07:55] LABS: Albumin Level 3.4 gm/dl (3.4-5.0); BUN Creatinine Ratio 19.7 (10-20); Creatinine Clr Calc Pharmacy 66.8 ml/min; Est GFR (African American) 98.5 ml/min; Phosphorus 3.8 mg/dl (2.5-4.9); Potassium 4.4 mmol/L (3.5-5.1)
[2023-07-06] MEDS: amLODIPine BESYLATE 5 MG TAB PO SCH (09:10)
[2023-07-06] MEDS ORDERED: LORazepam 2 MG/1 ML VIAL IV STA (13:19)
[2023-07-06] MEDS ORDERED: DEXAMETHASONE SOD INJ 4 MG/ML VIAL IV STA (13:28)
--- NOTE | 2023-07-06 13:29 | Hospitalist Progress Note ---
Date of Service July 06, 2023 Assessment & Plan (1) Generalized weakness: (2) Acute dehydration: (3) Rhabdomyolysis: (4) Severe aortic stenosis: (5) Hyperlipidemia: (6) Fracture of pubic ramus with routine healing: (7) Multiple closed fractures of ribs of both sides: (8) Fall: Plan Generalized weakness/decreased oral intake/mild dehydration/rhabdomyolysis- Patient had been doing well from her previously noted fractures and pelvis and ribs, until she inadvertently tripped over the extended foot rest of her reclining chair She reports that her oral intake has been significantly decreased, and feels generally weak on that basis and from decreased activity over the past few days. After initial injury, she did well with going to rehab, and feels that she would need to go to rehab again at this time. PT/OT and social work instructor on board. Patient is being treated with Toradol for pain control. Heating pad ordered as well. She is requesting oxycodone to be added to her regimen. She says that she tolerated it well the last time. Ordered oxycodone p.o. every 6 as needed pain Continue acetaminophen 600 mg every 6 hours as needed T10 fracture Seen on lumbar spine MRI Thoracic spine MRI ordered T10 vertebral body fracture with bulging into posterior wall of spinal cord with cord edema Ordered Decadron 4 mg IV x1 Awaiting orthospine evaluation Pain control Rhabdomyolysis/dehydration- CK 557, creatinine 0.59 Status post 2 L normal saline from the ED, which she reports has made her feel somewhat better. Hold on any additional IV fluids at this time Encourage p.o. fluid intake Hypertension- Continue amlodipine Admission and Anticipated Discharge Date Admission Date: July 03, 2023 Subjective Patient says that her pain is better controlled today. She had a good night sleep last night. MRI Lumbar spine done last night. Results reviewed. MRI thoracic spine ordered for today. Awaiting orthospine evaluation. Review of Systems Review of Systems: All systems reviewed & are unremarkable except as noted in Subjective Physical Exam Physical Exam: General: Awake, conversant. Anxious appearing Heart: S1, S2/regular rate and rhythm, no rubs or gallops. 3/6 systolic murmur best heard in the right second intercostal space Lungs: Clear to auscultation bilaterally. Normal effort Abdomen: Soft/nontender/nondistended. No hepatosplenomegaly Extremities: No clubbing/cyanosis. No edema Behavior: Appropriate, cooperative Results & Data Results & Data Vital Signs (Past 12 Hours) Vital Signs Temp Pulse Pulse Resp BP BP Pulse Ox 07/06/23 11:33 37.0 C 86 18 101/66 95 07/06/23 09:18 07/06/23 07:30 36.4 C L 88 19 99/57 L 95 07/06/23 07:10 96 H 07/06/23 04:38 36.3 C L 101 H 18 116/66 97 O2 Del Method O2 Flow Rate 07/06/23 11:33 Nasal Cannula 2 07/06/23 09:18 Nasal Cannula 2 07/06/23 07:30 Nasal Cannula 2 07/06/23 07:10 07/06/23 04:38 Room Air PG Care Time/CCT Total # of Minutes Spent Total Time Spent with Patient: Total time spent is greater than 50% in coordination of care (as documented) at patient's floor/unit and/or counseling patient: Coding Level of Care Code 90275 SUB INP/OBS CARE 2/35MIN Diagnoses Generalized weakness R53.1 Acute dehydration E86.0 Rhabdomyolysis T79.6XXA Encounter type: initial encounter Rhabdomyolysis type: traumatic Severe aortic stenosis I35.0 Hyperlipidemia E78.5 Fracture of pubic ramus with routine healing S32.599D Multiple closed fractures of ribs of both sides S22.43XA Fall W19.XXXA (3) Rhabdomyolysis Encounter type: initial encounter Rhabdomyolysis type: traumatic Qualified Code(s): T79.6XXA - Traumatic ischemia of muscle, initial encounter
[2023-07-06] MEDS ORDERED: dexAMETHasone 4 MG in SYRINGE 0 ML IV ONE (13:45)
[2023-07-06] MEDS: ATORVASTATIN 20 MG TAB PO SCH (21:09)
[2023-07-06] MEDS ORDERED: LORazepam 2 MG/1 ML VIAL IV PRN (22:04)
[2023-07-07] MEDS: oxyCODONE HCL IR 5 MG TAB (IMMEDIATE RELEASE) PO PRN ×2 (04:19→10:33)
[2023-07-07] MEDS: ACETAMINOPHEN 325 MG TAB PO PRN ×2 (07:53→14:00)
[2023-07-07] MEDS: KETOROLAC TROMETHAMINE 10 MG TABLET PO PRN (07:54)
[2023-07-07] MEDS: amLODIPine BESYLATE 5 MG TAB PO SCH (07:56)
[2023-07-07] MEDS ORDERED: DEXAMETHASONE SOD INJ 4 MG/ML VIAL IV STA (11:43)
[2023-07-07] MEDS: dexAMETHasone 4 MG in SYRINGE 0 ML IV SCH ×3 (12:53→23:50)
--- NOTE | 2023-07-07 14:29 | Magnetic Resonance Report ---
THORACIC SPINE MRI HISTORY: Low back pain. Multiple falls. Bilateral leg weakness. cord contusion TECHNIQUE: Utilizing a 1.5 Aida magnet, sagittal T1, sagittal T2, axial T2 sequences of the thoracic spine were obtained without the use of intravenous contrast. Additional sequences were no obtained a s the patient was unable to tolerate the remaining examination. In addition, the axial sequences invo lve the T1-T8 levels and do not include the T10 level. COMPARISON: Lumbar spine MRI 07/05/2023. Chest CT 05/20/2023. FINDINGS: There are bilateral pleural effusions with consolidation within the bilateral lower lobes. This may r epresent compressive atelectasis from the pleural effusions. A pneumonia could also have a similar ap pearance. Mild to moderate chronic anterior wedge-shaped compression fractures at C7, T2, T5, T6, T7, and T8 levels. These are similar to the prior chest CT. There is a fluid cleft through the horizonta l/burst fracture through the T10 vertebral body which extends to the posterior cortex. This suggests a subacute fracture. There is mild to moderate loss of height of the vertebral body which demonstrate s up to 6 mm of retropulsion. This results in moderate central canal narrowing with associated mild c ord deformity. Cord edema described on the prior lumbar spine MRI is difficult to assess on this exam ination. No definite epidural fluid collections on this study. There is questionable involvement of t he left T10 pedicle on sagittal image 12. Therefore, this raises the possibility of a 3 column fractu re at this level. IMPRESSION: 1. Suboptimal evaluation of the thoracic spine as the patient was unable to complete the entire study . 2. Redemonstration of the horizontal/burst fracture at the T10 vertebral body which favors a subacute fracture. There is 6 mm of retropulsion of the posterior cortex resulting in moderate central canal narrowing and mild cord deformity. The cord edema described on the prior lumbar spine MRI is not well assessed on this examination. 3. The fracture may extend into the left pedicle. Therefore, this raises the possibility of a 3 colum n fracture at T10. 4. Multiple additional old compression fractures within the thoracic spine and C7 vertebral bodies as described above. 5. Bilateral pleural effusions and bilateral lower lobe consolidation. This favors atelectasis. A pne umonia could also have a similar appearance. ACT 112: Negative or not required by law. Electronically signed by: Alvin Valdez M.D. 07/07/2023 2:27 PM
--- NOTE | 2023-07-07 14:34 | Hospitalist Progress Note ---
Date of Service July 07, 2023 Assessment & Plan (1) Generalized weakness: (2) Acute dehydration: (3) Rhabdomyolysis: (4) Severe aortic stenosis: (5) Hyperlipidemia: (6) Fracture of pubic ramus with routine healing: (7) Multiple closed fractures of ribs of both sides: (8) Fall: Plan Generalized weakness/decreased oral intake/mild dehydration/rhabdomyolysis- Patient had been doing well from her previously noted fractures and pelvis and ribs, until she inadvertently tripped over the extended foot rest of her reclining chair After initial injury, she did well with going to rehab, and feels that she would need to go to rehab again at this time. 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 Rhabdomyolysis resolved. Dehydration resolved. Increased dose of oxycodone p.o. to 10 mg every 6 as needed pain Added OxyContin 10 mg twice daily Continue acetaminophen 600 mg every 6 hours as needed T10 fracture Seen on lumbar spine MRI T10 vertebral body fracture with bulging into posterior wall of spinal cord with cord edema Ordered Decadron 4 mg IV to 6 Dr. Harrell from [facility] evaluated the patient and did not like to take patient to the OR on Monday. He requested cardiology consult for preop evaluation Pain control with oxycodone as needed and OxyContin twice daily Rhabdomyolysis/dehydration- CK 557, creatinine 0.59 Status post 2 L normal saline from the ED, which she reports has made her feel somewhat better. Hold on any additional IV fluids at this time Encourage p.o. fluid intake Hypertension- Continue amlodipine Admission and Anticipated Discharge Date Admission Date: July 03, 2023 Subjective patient still complains of pain. Spoke to Dr. Harrell from [facility] who recommends surgery hopefully Monday provided preop clearance obtained from cardiology. in the meantime, I will continue pain management, bedrest, IV Decadron. Review of Systems Review of Systems: All systems reviewed & are unremarkable except as noted in Subjective Physical Exam Physical Exam: General: Awake, conversant. Anxious appearing Heart: S1, S2/regular rate and rhythm, no rubs or gallops. 3/6 systolic murmur best heard in the right second intercostal space Lungs: Clear to auscultation bilaterally. Normal effort Abdomen: Soft/nontender/nondistended. No hepatosplenomegaly Extremities: No clubbing/cyanosis. No edema Behavior: Appropriate, cooperative Results & Data Results & Data Vital Signs (Past 12 Hours) Vital Signs Temp Pulse Pulse Resp BP Pulse Ox O2 Del Method 07/07/23 12:03 36.5 C 93 H 18 109/60 96 Nasal Cannula 07/07/23 08:18 36.6 C 83 20 127/81 96 Nasal Cannula 07/07/23 07:23 80 07/07/23 02:46 36.9 C 87 20 128/78 96 Nasal Cannula O2 Flow Rate 07/07/23 12:03 2 07/07/23 08:18 2 07/07/23 07:23 07/07/23 02:46 2 PG Care Time/CCT Total # of Minutes Spent Total Time Spent with Patient: Total time spent is greater than 50% in coordination of care (as documented) at patient's floor/unit and/or counseling patient: Coding Level of Care Code 59771 SUB INP/OBS CARE 2/35MIN Diagnoses Generalized weakness R53.1 Acute dehydration E86.0 Rhabdomyolysis T79.6XXA Encounter type: initial encounter Rhabdomyolysis type: traumatic Severe aortic stenosis I35.0 Hyperlipidemia E78.5 Fracture of pubic ramus with routine healing S32.599D Multiple closed fractures of ribs of both sides S22.43XA Fall W19.XXXA (3) Rhabdomyolysis Encounter type: initial encounter Rhabdomyolysis type: traumatic Qualified Code(s): T79.6XXA - Traumatic ischemia of muscle, initial encounter
--- NOTE | 2023-07-07 16:27 | Orthopedic Consultation ---
Date of Consultation July 07, 2023 Assessment & Plan (1) Thoracic compression fracture: Assessment MRI lumbar spine available for review without adequate axial cuts demonstrates evidence of possible T10 bony Chance fracture. It appears to be subacute. I discussed with this patient regarding my concerns that she has cord damage that sustained approximately a week ago and perhaps even prior. She has significant health issues particularly with her heart disease. This is of concern. As I believe she would benefit from thoracolumbar stabilization across the fracture site to protect the cord from further decline. We are awaiting further input from medicine regarding her surgical candidacy whether she be candidate for surgery here at [facility] or need transferred to a tertiary care center. History of Present Illness Reason for Consultation: T10 fracture Attending Physician: Cathy Wallace MD History of Present Illness This is an 83-year-old female who presents Monday with decline in status significant thoracolumbar back pain and bilateral lower extremity weakness. She has a history of a fall while traveling in [place] approximately a month ago. This required several week stay in rehabilitation which she stayed it was tolerable. She was in her home using a walker to ambulate.. She states she fell while trying to get out of her recliner. This required the help of the carrier operator get her back into her chair. She was comfortable with them when she tried to ambulate a second time she was unable to do so was subsequently brought to the emergency room. Today she states she has marked changes in sensation to lower extremities. She is on the lower legs. She currently has a catheter in place. Allergies Allergy/AdvReac Type Severity Reaction Status Date / Time bacitracin Allergy Mild SITE Verified 07/03/23 21:19 SWELLING WITH TOPICAL NEOSPORIN neomycin Allergy Mild SITE Verified 07/03/23 21:19 SWELLING WITH TOPICAL NEOSPORIN polymyxin B Allergy Mild SITE Verified 07/03/23 21:19 SWELLING WITH TOPICAL NEOSPORIN adhesive AdvReac Intermediate SKIN RASH Verified 07/03/23 21:19 AFTER KNEE SURGERY-USES PAPER TAPE Home Medications Medication Instructions Recorded Confirmed Type atorvastatin 20 mg tablet 20 mg PO QPM 05/20/23 07/03/23 History acetaminophen 325 mg tablet 650 mg PO Q6H PRN Pain 06/06/23 07/03/23 History amlodipine 5 mg tablet 5 mg PO DAILY 06/06/23 07/03/23 History polyethylene glycol 3350 17 17 g PO DAILY PRN Constipation 06/06/23 07/03/23 History gram/dose oral powder (Miralax) benzocaine 15 mg-menthol 10 mg 1 kaden PO DIRECTED PRN Cough 07/03/23 07/03/23 History lozenges Patient History Medical History (Updated 07/07/23 @ 16:26 by Robbie Harrell DO) Arthritis Tricuspid regurgitation Rectocele Hyperlipemia Cystocele, midline Sleep apnea no device, wears mouth guard HS Osteopenia Benign essential hypertension no meds Surgical History History of colonoscopy History of cholecystectomy History of total shoulder replacement Rt History of total knee replacement R/L Family History Father COPD (chronic obstructive pulmonary disease) Mother Breast cancer Other No family history of adverse response to anesthesia Denies family history of Ovarian cancer Prostate cancer Myocardial infarction Colorectal cancer Social History Smoking Status: Former smoker Second Hand Exposure: No; Do You Dip or Chew Tobacco: No; Hx Alcohol Use: Yes Alcohol type: wine Alcohol Intake Frequency: Monthly or Less Hx Substance Use: No Preferred Language: Portuguese Communication Ability: Effective Visual Impairment: No Limitations Hearing Ability: Normal 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 Required: No Beliefs That Will Affect Care: None marital status: / Current Living Situation: Alone Current Living Situation Comment: one level house current occupational status: retired How many Children do You have: 2 Feels Safe at Home: Yes Safety Concerns: Feels Safe At This Time Childhood Exposure to Second-Hand Smoke: Yes Diet: regular caffeine: Yes during the past year weight has: remained stable Dental Care, Regularly: Yes Physical Activity Frequency: Daily Seatbelt Use: always Sunscreen Use: Yes Do you think of yourself as: straight/heterosexual Gender Identity: Female Assistive Devices: Cane Physical Exam Physical Exam: Patient is alert and oriented. She exhibits 4 5 plantarflexion dorsiflexion there is no evidence of hip flexion quadricep function bilaterally. Sensory is diminished. Deep tendon flexes absent. Results & Data Vital Signs (Past 12 Hours) Vital Signs Temp Pulse Pulse Resp BP Pulse Ox O2 Del Method 07/07/23 15:55 98 H 07/07/23 15:51 36.7 C 88 20 116/72 95 Room Air 07/07/23 12:03 36.5 C 93 H 18 109/60 96 Nasal Cannula 07/07/23 08:18 36.6 C 83 20 127/81 96 Nasal Cannula 07/07/23 07:23 80 O2 Flow Rate 07/07/23 15:55 07/07/23 15:51 07/07/23 12:03 2 07/07/23 08:18 2 07/07/23 07:23
--- NOTE | 2023-07-07 16:42 | Cardiology Consultation ---
Date of Consultation July 07, 2023 Assessment & Plan (1) Aortic stenosis: Plan 1. Aortic stenosis: For evaluation just over a month ago suggested sub severe aortic stenosis. She does not have symptoms of severe aortic stenosis. As such, she would likely tolerate the proposed surgery without hemodynamic compromise. He will be imperative to maintain good control of her blood pressure, volume status and heart rate in the perioperative period. From a preoperative standpoint she does not have other symptoms of cardiac disease. Before her recent accident and she appeared to be quite active without symptoms suggestive of coronary disease, significant arrhythmias or as noted above valve disease. I do not believe she requires further cardiac evaluation prior to her surgery. As with all patients in her demographic, efforts should be made to avoid significant blood loss, associated anemia, hypoxia, hypotension, hypertension or significant tachycardia. History of Present Illness Reason for Consultation: Preoperative evaluation Requesting Physician: Rodrigo Attending Physician: Cathy Wallace MD History of Present Illness The patient is an 83-year-old woman with a history of aortic stenosis who is currently admitted to the hospital for difficulty with ambulation due to pain. She appears to have suffered a spine fracture. This presumably occurred when she was ambulating at home and tripped over a chair. She has had several recent falls and was also in rehab recently subsequent to another event of similar nature which occurred in [place]. The patient states that prior to her recent falls and rehab stay she was quite active. In fact, she was able to participate with her toward group in [place] without restriction. She did not report any limiting dyspnea or associated chest pain. She exercises on a treadmill routinely. While she may not walk fascia can be on the treadmill for up to an hour talking to her friends. She did not experience limiting dyspnea or chest pain associated with activity. She also has a hill close to home which she can as sent without symptoms. She has not been aware of any palpitations or rapid heartbeats. She did not endorse symptoms of dizziness or lightheadedness. No history of syncope. Currently she has significant discomfort in her back. She is also having difficulty ambulating and she has been stuck in bed and feels quite weak. No breathing difficulty lying in bed. Allergies Allergy/AdvReac Type Severity Reaction Status Date / Time bacitracin Allergy Mild SITE Verified 07/03/23 21:19 SWELLING WITH TOPICAL NEOSPORIN neomycin Allergy Mild SITE Verified 07/03/23 21:19 SWELLING WITH TOPICAL NEOSPORIN polymyxin B Allergy Mild SITE Verified 07/03/23 21:19 SWELLING WITH TOPICAL NEOSPORIN adhesive AdvReac Intermediate SKIN RASH Verified 07/03/23 21:19 AFTER KNEE SURGERY-USES PAPER TAPE Home Medications Medication Instructions Recorded Confirmed Type atorvastatin 20 mg tablet 20 mg PO QPM 05/20/23 07/03/23 History acetaminophen 325 mg tablet 650 mg PO Q6H PRN Pain 06/06/23 07/03/23 History amlodipine 5 mg tablet 5 mg PO DAILY 06/06/23 07/03/23 History polyethylene glycol 3350 17 17 g PO DAILY PRN Constipation 06/06/23 07/03/23 History gram/dose oral powder (Miralax) benzocaine 15 mg-menthol 10 mg 1 kaden PO DIRECTED PRN Cough 07/03/23 07/03/23 History lozenges Patient History Medical History (Updated 07/07/23 @ 16:46 by Femi Lee MD) Arthritis Tricuspid regurgitation Rectocele Hyperlipemia Cystocele, midline Sleep apnea no device, wears mouth guard HS Osteopenia Benign essential hypertension no meds Surgical History History of colonoscopy History of cholecystectomy History of total shoulder replacement Rt History of total knee replacement R/L Family History Father COPD (chronic obstructive pulmonary disease) Mother Breast cancer Other No family history of adverse response to anesthesia Denies family history of Ovarian cancer Prostate cancer Myocardial infarction Colorectal cancer Social History Smoking Status: Former smoker Second Hand Exposure: No; Do You Dip or Chew Tobacco: No; Hx Alcohol Use: Yes Alcohol type: wine Alcohol Intake Frequency: Monthly or Less Hx Substance Use: No Preferred Language: Mongolian Communication Ability: Effective Visual Impairment: No Limitations Hearing Ability: Normal 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: No Beliefs That Will Affect Care: None marital status: / Current Living Situation: Alone Current Living Situation Comment: one level house current occupational status: retired How many Children do You have: 2 Feels Safe at Home: Yes Safety Concerns: Feels Safe At This Time Childhood Exposure to Second-Hand Smoke: Yes Diet: regular caffeine: Yes during the past year weight has: remained stable Dental Care, Regularly: Yes Physical Activity Frequency: Daily Seatbelt Use: always Sunscreen Use: Yes Do you think of yourself as: straight/heterosexual Gender Identity: Female Assistive Devices: Cane Review of Systems Review of Systems: Per HPI Physical Exam Physical Exam: She is alert and oriented x3. Mood affect appear normal. She answered all questions appropriately. HEENT: Sclerae are anicteric. Pupils are equal and reactive to light and accommodation. Extraocular movements were intact. Neuro: Cranial nerves intact Lungs: Lungs are clear to auscultation bilaterally. There are no rales wheezes or rhonchi. She has normal respiratory effort without use of accessory muscles. There is normal pulmonary excursion. Cardiac: The rhythm was regular. S1 and S2 were normal. Harsh crescendo systolic murmur which radiates throughout the precordium The PMI was not markedly displaced on palpation. Extremities: Patient has bilateral radial pulses that are equal in intensity. There is no evidence cyanosis or clubbing. There was no evidence of significant peripheral edema bilaterally. Skin: There are no rashes noted on examination today. Results & Data Vital Signs (Past 12 Hours) Vital Signs Temp Pulse Pulse Resp BP Pulse Ox O2 Del Method 07/07/23 15:55 98 H 07/07/23 15:51 36.7 C 88 20 116/72 95 Room Air 07/07/23 12:03 36.5 C 93 H 18 109/60 96 Nasal Cannula 07/07/23 08:18 36.6 C 83 20 127/81 96 Nasal Cannula 07/07/23 07:23 80 O2 Flow Rate 07/07/23 15:55 07/07/23 15:51 07/07/23 12:03 2 07/07/23 08:18 2 07/07/23 07:23 Diagnostic Findings Echocardiogram performed 05/24/[address] [facility]: Normal LV systolic function with ejection fraction 55-60%. Calcified aortic valve with moderate to severe aortic stenosis. 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 PG Care Time/CCT Total # of Minutes Spent Total Time Spent with Patient: Total time spent is greater than 50% in coordination of care (as documented) at patient's floor/unit and/or counseling patient: Coding Level of Care Code 92969 INT INP/OBS CARE MIN Diagnoses Aortic stenosis I35.0
--- NOTE | 2023-07-07 16:49 | CT Scan Report ---
CT thoracic spine wo con HISTORY: 83 years-old Female T10 fracture subacute T10 vertebral body fracture COMPARISON: MRI of thoracic spine of same day, CT abdomen and pelvis 07/03/2008, chest CT 05/20/2023 TECHNIQUE: Multiple axial CT images of the thoracic spine were obtained without the use of IV contras t. A dose lowering technique was used consistent with the principals of ALARA. FINDINGS: Motion degraded exam. Horizontal burst fracture at T10 is again noted which is new from 05/20/2023. 6 mm of retropulsion causing moderate central canal stenosis. Probable fracture extension into the bila teral pedicles best seen on the sagittal images. Additionally, subtle fractures are present within th e anterosuperior endplate at T11 and anterior bridging osteophytes at T10-T11 with additional fractur e line involving the posterior column of T11 extending into the right pedicle. Additional chronic tho racic compression deformities with bridging osteophytosis, mild to moderate intervertebral disc space narrowing and moderate facet arthrosis. Small to moderate layering pleural effusions with dependent bibasilar consolidation. Cardiomegaly. IMPRESSION: 1. Limited exam secondary to motion artifact. 2. Acute to subacute appearing three column fractures at T10 and T11 with 6 mm of retropulsion at T10 again noted resulting in moderate central canal stenosis. ACT 112: Negative or not required by law. The above report was generated using voice recognition software. It may contain grammatical, syntax o r spelling errors. Electronically signed by: Julius Jones M.D. 07/07/2023 4:47 PM
[2023-07-07] MEDS: oxyCODONE HCL 10 MG TABCR (OxyCONTIN) PO SCH (20:23)
[2023-07-07] MEDS: ATORVASTATIN 20 MG TAB PO SCH (20:24)
[2023-07-08] MEDS: dexAMETHasone 4 MG in SYRINGE 0 ML IV SCH ×3 (06:01→18:16)
[2023-07-08] MEDS: oxyCODONE HCL IR 5 MG TAB (IMMEDIATE RELEASE) PO PRN ×4 (06:03→18:15)
[2023-07-08] MEDS: amLODIPine BESYLATE 5 MG TAB PO SCH (09:04)
[2023-07-08] MEDS: oxyCODONE HCL 10 MG TABCR (OxyCONTIN) PO SCH ×2 (09:04→21:20)
[2023-07-08] MEDS ORDERED: bisacodyL 10 MG SUPP PR PRN (10:34)
[2023-07-08] MEDS: DOCUSATE SODIUM 100 MG CAP PO SCH ×2 (11:28→21:20)
[2023-07-08] MEDS: POLYETHYLENE (MIRALAX) 17 GM PACK PO PRN (11:28)
--- NOTE | 2023-07-08 11:32 | Orthopedic Progress Note ---
Date of Service July 08, 2023 Assessment & Plan (1) Thoracic compression fracture: Plan: Assessment T10 bony Chance fracture. Plan at this time at length yesterday with patient regarding her diagnosis and treatment plan. Cardiology has had the opportunity to evaluate her. I will ask anesthesia for their input. We will plan for decompression fusion T8-T12 on Monday. In the meantime we will maintain strict bedrest with head of bed essentially flat. I did discuss with the patient that with review of her imaging to be the most recent CAT scan I suspect this injury occurred several weeks ago when he believes it has a subacute component to the pattern of fracture. Admission and Anticipated Discharge Date Admission Date: July 03, 2023 Subjective Patient is feeling somewhat improved today. Her pain is controlled. She notes increase in station and function of lower extremities. Physical Exam Physical Exam: On exam plantarflexion dorsiflexion is intact. She is demonstrating evidence of quadricep and hip flexor function. Sensory is somewhat improved. Results & Data Vital Signs (Past 12 Hours) Vital Signs Temp Pulse Pulse Resp BP Pulse Ox O2 Del Method 07/08/23 10:25 93 H 07/08/23 08:26 36.5 C 78 18 124/73 97 Nasal Cannula 07/08/23 02:49 36.7 C 80 18 133/75 95 Nasal Cannula O2 Flow Rate 07/08/23 10:25 07/08/23 08:26 2 07/08/23 02:49 2
--- NOTE | 2023-07-08 11:56 | Hospitalist Progress Note ---
Date of Service July 08, 2023 Assessment & Plan (1) Generalized weakness: (2) Acute dehydration: (3) Rhabdomyolysis: (4) Severe aortic stenosis: (5) Hyperlipidemia: (6) Fracture of pubic ramus with routine healing: (7) Multiple closed fractures of ribs of both sides: (8) Fall: Plan Generalized weakness/decreased oral intake/mild dehydration/rhabdomyolysis- Patient had been doing well from her previously noted fractures and pelvis and ribs, until she inadvertently tripped over the extended foot rest of her reclining chair After initial injury, she did well with going to rehab, and feels that she would need to go to rehab again at this time. PT/OT and social sciences lecturer on board. Rhabdomyolysis resolved. Dehydration resolved. Increased dose of oxycodone p.o. to 10 mg every 6 as needed pain Added OxyContin 10 mg twice daily Continue acetaminophen 600 mg every 6 hours as needed T10 fracture Seen on lumbar spine MRI T10 vertebral body fracture with bulging into posterior wall of spinal cord with cord edema CT thoracic spine reviewed. On Decadron 4 mg IV to 6 Dr. Harrell from [facility] evaluated the patient and would like to take the patient to the OR Monday Preop evaluation completed by cardiology Pain control with oxycodone as needed and OxyContin twice daily Bowel regimen ordered Rhabdomyolysis/dehydration- CK 557, creatinine 0.59 Status post 2 L normal saline from the ED, which she reports has made her feel somewhat better. Hold on any additional IV fluids at this time Encourage p.o. fluid intake Check CBC and BMP in a.m. Hypertension- Continue amlodipine Admission and Anticipated Discharge Date Admission Date: July 03, 2023 Subjective Patient says that her pain is much better controlled. She was able to sleep through the night. Noted that cardiology has completed the preoperative evaluation. Dr. Harrell has been notified about cardiology clearance. Dr. Harrell plans to take the patient to the OR on Monday. Patient complains of being constipated. Review of Systems Review of Systems: All systems reviewed & are unremarkable except as noted in Subjective Physical Exam Physical Exam: General: Awake, conversant. Less anxious appearing today. Heart: S1, S2/regular rate and rhythm, no rubs or gallops. 3/6 systolic murmur best heard in the right second intercostal space Lungs: Clear to auscultation bilaterally. Normal effort Abdomen: Soft/nontender/nondistended. No hepatosplenomegaly Extremities: No clubbing/cyanosis. No edema Behavior: Appropriate, cooperative Results & Data Results & Data Vital Signs (Past 12 Hours) Vital Signs Temp Pulse Pulse Resp BP Pulse Ox O2 Del Method 07/08/23 11:43 36.6 C 84 18 120/71 94 Nasal Cannula 07/08/23 10:25 93 H 07/08/23 08:26 36.5 C 78 18 124/73 97 Nasal Cannula 07/08/23 02:49 36.7 C 80 18 133/75 95 Nasal Cannula O2 Flow Rate 07/08/23 11:43 2 07/08/23 10:25 07/08/23 08:26 2 07/08/23 02:49 2 Diagnostic Findings Thoracic Spine MRI 07/07/23 10:13 THORACIC SPINE MRI HISTORY: Low back pain. Multiple falls. Bilateral leg weakness. cord contusion TECHNIQUE: Utilizing a 1.5 Aida magnet, sagittal T1, sagittal T2, axial T2 sequences of the thoracic spine were obtained without the use of intravenous contrast. Additional sequences were no obtained as the patient was unable to tolerate the remaining examination. In addition, the axial sequences involve the T1-T8 levels and do not include the T10 level. COMPARISON: Lumbar spine MRI 07/05/2023. Chest CT 05/20/2023. FINDINGS: There are bilateral pleural effusions with consolidation within the bilateral lower lobes. This may represent compressive atelectasis from the pleural effusions. A pneumonia could also have a similar appearance. Mild to moderate chronic anterior wedge-shaped compression fractures at C7, T2, T5, T6, T7, and T8 levels. These are similar to the prior chest CT. There is a fluid cleft through the horizontal/burst fracture through the T10 vertebral body which extends to the posterior cortex. This suggests a subacute fracture. There is mild to moderate loss of height of the vertebral body which demonstrates up to 6 mm of retropulsion. This results in moderate central canal narrowing with associated mild cord deformity. Cord edema described on the prior lumbar spine MRI is difficult to assess on this examination. No definite epidural fluid collections on this study. There is questionable involvement of the left T10 pedicle on sagittal image 12. Therefore, this raises the possibility of a 3 column fracture at this level. IMPRESSION: 1. Suboptimal evaluation of the thoracic spine as the patient was unable to complete the entire study. 2. Redemonstration of the horizontal/burst fracture at the T10 vertebral body which favors a subacute fracture. There is 6 mm of retropulsion of the posterior cortex resulting in moderate central canal narrowing and mild cord deformity. The cord edema described on the prior lumbar spine MRI is not well assessed on this examination. 3. The fracture may extend into the left pedicle. Therefore, this raises the possibility of a 3 column fracture at T10. 4. Multiple additional old compression fractures within the thoracic spine and C7 vertebral bodies as described above. 5. Bilateral pleural effusions and bilateral lower lobe consolidation. This favors atelectasis. A pneumonia could also have a similar appearance. ACT 112: Negative or not required by law. Electronically signed by: Alvin Valdez M.D. 07/07/2023 2:[address] 07/07/23 14:18 CT thoracic spine wo con HISTORY: 83 years-old Female T10 fracture subacute T10 vertebral body fracture COMPARISON: MRI of thoracic spine of same day, CT abdomen and pelvis 07/03/2008, chest CT 05/20/2023 TECHNIQUE: Multiple axial CT images of the thoracic spine were obtained without the use of IV contrast. A dose lowering technique was used consistent with the principals of ALARA. FINDINGS: Motion degraded exam. Horizontal burst fracture at T10 is again noted which is new from 05/20/2023. 6 mm of retropulsion causing moderate central canal stenosis. Probable fracture extension into the bilateral pedicles best seen on the sagittal images. Additionally, subtle fractures are present within the anterosuperior endplate at T11 and anterior bridging osteophytes at T10-T11 with additional fracture line involving the posterior column of T11 extending into the right pedicle. Additional chronic thoracic compression deformities with bridging osteophytosis, mild to moderate intervertebral disc space narrowing and moderate facet arthrosis. Small to moderate layering pleural effusions with dependent bibasilar consolidation. Cardiomegaly. IMPRESSION: 1. Limited exam secondary to motion artifact. 2. Acute to subacute appearing three column fractures at T10 and T11 with 6 mm of retropulsion at T10 again noted resulting in moderate central canal stenosis. ACT 112: Negative or not required by law. The above report was generated using voice recognition software. It may contain grammatical, syntax or spelling errors. Electronically signed by: Julius Jones M.D. 07/07/2023 4:47 PM PG Care Time/CCT Total # of Minutes Spent Total Time Spent with Patient: Total time spent is greater than 50% in coordination of care (as documented) at patient's floor/unit and/or counseling patient: Coding Level of Care Code 46169 SUB INP/OBS CARE 2/35MIN Diagnoses Generalized weakness R53.1 Acute dehydration E86.0 Rhabdomyolysis T79.6XXA Encounter type: initial encounter Rhabdomyolysis type: traumatic Severe aortic stenosis I35.0 Hyperlipidemia E78.5 Fracture of pubic ramus with routine healing S32.599D Multiple closed fractures of ribs of both sides S22.43XA Fall W19.XXXA (3) Rhabdomyolysis Encounter type: initial encounter Rhabdomyolysis type: traumatic Qualified Code(s): T79.6XXA - Traumatic ischemia of muscle, initial encounter
--- NOTE | 2023-07-08 13:14 | Anesthesiology Consultation ---
Date of Service July 08, 2023 Assessment & Plan Chart Review Chart Review: Acceptable Risk for Surgery and Patient NOT seen in Pre Admission Testing There is not a C/I to surgery from anesthetic perspective. Consults Requested none ASA ASA4 Proposed Anesthesia Anesthesia Type: General Anesthesia Line Insertion: Arterial line History Height/Weight Height: 5 ft 1 in Weight: 78.2 kg Allergies Allergy/AdvReac Type Severity Reaction Status Date / Time bacitracin Allergy Mild SITE Verified 07/03/23 21:19 SWELLING WITH TOPICAL NEOSPORIN neomycin Allergy Mild SITE Verified 07/03/23 21:19 SWELLING WITH TOPICAL NEOSPORIN polymyxin B Allergy Mild SITE Verified 07/03/23 21:19 SWELLING WITH TOPICAL NEOSPORIN adhesive AdvReac Intermediate SKIN RASH Verified 07/03/23 21:19 AFTER KNEE SURGERY-USES PAPER TAPE Medications Home Medications Medication Instructions Recorded Confirmed Last Taken atorvastatin 20 mg tablet 20 mg PO QPM 05/20/23 07/03/23 Unknown acetaminophen 325 mg tablet 650 mg PO Q6H PRN Pain 06/06/23 07/03/23 Unknown amlodipine 5 mg tablet 5 mg PO DAILY 06/06/23 07/03/23 Unknown polyethylene glycol 3350 17 17 g PO DAILY PRN Constipation 06/06/23 07/03/23 Unknown gram/dose oral powder (Miralax) benzocaine 15 mg-menthol 10 mg 1 mick PO DIRECTED PRN Cough 07/03/23 07/03/23 Unknown lozenges Active Medications Generic Name Dose Route Start Last Admin Trade Name Freq PRN Reason Stop Dose Admin Acetaminophen 650 mg 07/04/23 01:10 07/07/23 14:00 Acetaminophen 325 Mg Tab PO 08/03/23 01:09 650 mg Q6H PRN Administration Pain or Fever Amlodipine Besylate 5 mg 07/04/23 09:00 07/08/23 09:04 Amlodipine Besylate 5 Mg Tab PO 08/03/23 08:59 5 mg DAILY BARB Administration Atorvastatin Calcium 20 mg 07/04/23 21:00 07/07/23 20:24 Atorvastatin 20 Mg Tab PO 08/03/23 20:59 20 mg QPM BARB Administration Docusate Sodium 100 mg 07/08/23 10:45 07/08/23 11:28 Docusate Sodium 100 Mg Cap PO 08/07/23 10:44 100 mg BID BARB Administration Dexamethasone 4 mg/ Syringe 1 mls @ 1 mls/min 07/07/23 12:00 07/08/23 12:22 IV 08/06/23 11:59 1 mls/min Q6 BARB Administration Menthol 1 mick 07/04/23 01:25 07/04/23 01:30 Cough Drop (Sugar Free) Mick 24 Mick/1 Box BUCCAL 08/03/23 01:24 1 mick UD PRN Administration Cough Oxycodone HCl 10 mg 07/07/23 14:28 07/08/23 12:22 Oxycodone Hcl Ir 5 Mg Tab (Immediate Release) PO 07/19/23 14:10 10 mg Q6 PRN Administration Pain Oxycodone HCl 10 mg 07/07/23 21:00 07/08/23 09:04 Oxycodone Hcl 10 Mg Tabcr (Oxycontin) PO 07/21/23 20:59 10 mg BID BARB Administration Polyethylene Glycol 17 gm 07/04/23 01:10 07/08/23 11:28 Polyethylene (Miralax) 17 Gm Pack PO 08/03/23 01:09 17 gm DAILY PRN Administration Constipation Past Medical History Medical History Arthritis Tricuspid regurgitation Rectocele Hyperlipemia Cystocele, midline Sleep apnea no device, wears mouth guard HS Osteopenia Benign essential hypertension no meds most recent echo of 05/24/2023 shows normal TV and moderate-severe AV Anemia ASCVD Aorta Exercise / Class Metabolic Activity III < 4 Walking/Shop/Light housework Past Family History Family History Father COPD (chronic obstructive pulmonary disease) Mother Breast cancer Other No family history of adverse response to anesthesia Denies family history of Ovarian cancer Prostate cancer Myocardial infarction Colorectal cancer Past Surgical History Surgical History History of colonoscopy History of cholecystectomy History of total shoulder replacement Rt History of total knee replacement R/L Past Anesthesia History No Hx of Anesthesia Complications and No Family Hx of Anesthesia Complications History of PONV No Hx of PONV and No Hx of Motion Sickness Social History Smoking Status: Former smoker Do You Dip or Chew Tobacco: No Hx Alcohol Use: Yes Alcohol type: wine alcohol intake frequency: holidays/special occasions only Hx Substance Use: No substance use type: does not use Physical Exam Vital Signs Last Vital Signs Temp 36.6 C 07/08/23 11:43 Pulse 84 07/08/23 11:43 Resp 18 07/08/23 11:43 BP 120/71 07/08/23 11:43 Pulse Ox 94 07/08/23 11:43 O2 Del Method Nasal Cannula 07/08/23 11:43 O2 Flow Rate 2 07/08/23 11:43 Testing Laboratory Results 07/06/23 07:01 07/06/23 07:01 Urine Color Dark Yellow 07/03/23 20:25 Urine Appearance Clear (Clear) 07/03/23 20:25 Urine pH 6.0 (4.5-7.5) 07/03/23 20:25 Ur Specific [place] 1.032 (1.000-1.030) H 07/03/23 20:25 Urine Protein 1+ (Negative) H 07/03/23 20:25 Urine Glucose (UA) Negative (Negative) 07/03/23 20:25 Urine Ketones 4+ (Negative) H 07/03/23 20:25 Urine Nitrite Negative (Negative) 07/03/23 20:25 Ur Leukocyte Esterase Negative (Negative) 07/03/23 20:25 Urine WBC (Auto) 1-5 /hpf (0-5) 07/03/23 20:25 Urine RBC (Auto) 0-4 /hpf (0-4) 07/03/23 20:25 U Hyaline Cast (Auto) 5-10 /lpf (0-5) H 07/03/23 20:25 U Epithel Cells (Auto) 10-20 /lpf (0-5) H 07/03/23 20:25 Urine Bacteria (Auto) Negative (Negative) 07/03/23 20:25 Electrocardiogram Date: 07/03/23 Findings: + NSR @ (@ 89 w/SA;LVH;? anterolateral infarct,age ?) Chest X-Ray Date: 07/03/23 Findings: + atelectasis (basilar linear densities, may represent atelectasis), + cardiomegaly (stable) and + pleural effusion (trace B/L pleural effusions) Echocardiogram Date: 05/24/23 EF: 55% LV Function: normal RWMA: + none Other Findings: + atrial enlargement (mild LAE) Valvular Disease: + (moderate-severe AVArea 1.2 cm2;mean gradient 31;Indexed AV area is 0.6cm2/m2;(severe < 0.5);AV dimensionless index is 0.32(severe < 0.25)) Borderline Pulmonary HTN-37 Torr according to measurements pt. has low CO
[2023-07-08] MEDS: ATORVASTATIN 20 MG TAB PO SCH (21:20)
[2023-07-09] MEDS: dexAMETHasone 4 MG in SYRINGE 0 ML IV SCH ×4 (01:18→18:37)
[2023-07-09] MEDS: oxyCODONE HCL IR 5 MG TAB (IMMEDIATE RELEASE) PO PRN ×4 (01:20→18:36)
[2023-07-09 06:46] LABS: Hematocrit (blood only) 34.8 % (37.0-47.0); Hemoglobin 11.7 g/dl (12.0-16.0); Mean Corpuscular Hemoglobin 29.4 pg (25.0-34.0); Mean Corpuscular Hgb Conc 33.6 g/dL (32.0-36.0); Mean Corpuscular Volume 87.4 fL (80.0-100.0); Mean Platelet Volume 10.2 fL (9.4-12.4); Platelet Count 208 K/uL (130-400); RDW Coefficient of Variation 12.8 % (11.5-14.5); RDW Standard Deviation 40.9 fL (36.4-46.3); Red Blood Count 3.98 M/uL (4.20-5.40); White Blood Count 11.75 K/ul (4.8-10.8)
[2023-07-09 07:02] LABS: BUN Creatinine Ratio 36.7 (10-20); Calcium 8.9 mg/dl (8.6-10.3); Creatinine Clr Calc Pharmacy 83.3 ml/min; Est GFR (African American) 105.9 ml/min; Est GFR (Non-African American) 91.4 ml/min; Potassium 4.7 mmol/L (3.5-5.1)
[2023-07-09 07:14] LABS: Immature Granulocytes # (auto) 0.07 K/uL (0.01-0.20); Immature Granulocytes % (auto) 0.6 %; Lymphocytes % (auto) 3.4 %; Monocytes % (auto) 4.3 %; Neutrophils # (auto) 10.78 K/uL (1.40-6.50); Neutrophils % (auto) 91.7 %
[2023-07-09] MEDS: oxyCODONE HCL 10 MG TABCR (OxyCONTIN) PO SCH ×2 (08:41→21:22)
[2023-07-09] MEDS: DOCUSATE SODIUM 100 MG CAP PO SCH ×2 (08:41→21:22)
[2023-07-09] MEDS: amLODIPine BESYLATE 5 MG TAB PO SCH (08:41)
--- NOTE | 2023-07-09 11:22 | Orthopedic Progress Note ---
Date of Service July 09, 2023 Assessment & Plan (1) Thoracic compression fracture: Plan: We will make the patient n.p.o. after midnight with plan for thoracic stabilization T8-T12 fusion tomorrow. Admission and Anticipated Discharge Date Admission Date: July 03, 2023 Subjective Patient feels her sensation has very modestly improved. She is noting a bit more function in the lower extremities. She is comfortable at bedrest. Physical Exam Physical Exam: Exam essentially unchanged. Results & Data Vital Signs (Past 12 Hours) Vital Signs Temp Pulse Pulse Resp BP Pulse Ox O2 Del Method 07/09/23 09:38 72 07/09/23 07:59 36.8 C 71 18 130/72 93 Nasal Cannula 07/09/23 03:45 36.4 C L 76 18 133/78 95 Nasal Cannula O2 Flow Rate 07/09/23 09:38 07/09/23 07:59 2 07/09/23 03:45 2
--- NOTE | 2023-07-09 12:30 | Hospitalist Progress Note ---
Date of Service July 09, 2023 Assessment & Plan (1) Generalized weakness: (2) Acute dehydration: (3) Rhabdomyolysis: (4) Severe aortic stenosis: (5) Hyperlipidemia: (6) Fracture of pubic ramus with routine healing: (7) Multiple closed fractures of ribs of both sides: (8) Fall: Plan Generalized weakness/decreased oral intake/mild dehydration/rhabdomyolysis- Patient had been doing well from her previously noted fractures and pelvis and ribs, until she inadvertently tripped over the extended foot rest of her reclining chair After initial injury, she did well with going to rehab, and feels that she would need to go to rehab again at this time. PT/OT and delinquency prevention social worker on board. Rhabdomyolysis resolved. Dehydration resolved. Increased dose of oxycodone p.o. to 10 mg every 6 as needed pain Added OxyContin 10 mg twice daily Continue acetaminophen 600 mg every 6 hours as needed T10 fracture Seen on lumbar spine MRI T10 vertebral body fracture with bulging into posterior wall of spinal cord with cord edema CT thoracic spine reviewed. On Decadron 4 mg IV to 6 Dr. [facility]rell [facility] patient and would like to take the patient to the OR Monday Preop evaluation completed by cardiology Pain control with oxycodone as needed and OxyContin twice daily Bowel regimen ordered Rhabdomyolysis/dehydration- resolved Hypertension- Continue amlodipine Admission and Anticipated Discharge Date Admission Date: July 03, 2023 Subjective patient says that she is feeling better. The pain is improved. She has better sensation and mobility of her lower extremities Physical Exam Physical Exam: General: Awake, conversant. appears relaxed Heart: S1, S2/regular rate and rhythm, no rubs or gallops. 3/6 systolic murmur best heard in the right second intercostal space Lungs: Clear to auscultation bilaterally. Normal effort Abdomen: Soft/nontender/nondistended. No hepatosplenomegaly Extremities: No clubbing/cyanosis. No edema Behavior: Appropriate, cooperative Results & Data Results & Data Vital Signs (Past 12 Hours) Vital Signs Temp Pulse Pulse Resp BP BP Pulse Ox 07/09/23 11:53 36.8 C 85 18 99/52 L 92 07/09/23 09:38 72 07/09/23 07:59 36.8 C 71 18 130/72 93 07/09/23 03:45 36.4 C L 76 18 133/78 95 O2 Del Method O2 Flow Rate 07/09/23 11:53 Nasal Cannula 2 07/09/23 09:38 07/09/23 07:59 Nasal Cannula 2 07/09/23 03:45 Nasal Cannula 2 Laboratory Results Abnormal lab results 07/09/23 Range/Units 06:09 WBC 11.75 H (4.8-10.8) K/ul RBC 3.98 L (4.20-5.40) M/uL Hgb 11.7 L (12.0-16.0) g/dl Hct 34.8 L (37.0-47.0) % Neut # (Auto) 10.78 H (1.40-6.50) K/uL Lymph # (Auto) 0.40 L (1.20-3.40) K/uL Carbon Dioxide 34 H (21-32) mmol/L Creatinine 0.49 L (0.6-1.2) mg/dl BUN/Creatinine Ratio 36.7 H (10-20) Glucose 113 H (70-99(Fasting)) mg/dl PG Care Time/CCT Total # of Minutes Spent Total Time Spent with Patient: Total time spent is greater than 50% in coordination of care (as documented) at patient's floor/unit and/or counseling patient: Coding Level of Care Code 47091 SUB INP/OBS CARE 2/35MIN Diagnoses Generalized weakness R53.1 Acute dehydration E86.0 Rhabdomyolysis T79.6XXA Encounter type: initial encounter Rhabdomyolysis type: traumatic Severe aortic stenosis I35.0 Hyperlipidemia E78.5 Fracture of pubic ramus with routine healing S32.599D Multiple closed fractures of ribs of both sides S22.43XA Fall W19.XXXA (3) Rhabdomyolysis Encounter type: initial encounter Rhabdomyolysis type: traumatic Qualified Code(s): T79.6XXA - Traumatic ischemia of muscle, initial encounter
[2023-07-09] MEDS: ATORVASTATIN 20 MG TAB PO SCH (21:22)
[2023-07-10] MEDS: dexAMETHasone 4 MG in SYRINGE 0 ML IV SCH ×4 (00:47→18:28)
[2023-07-10] MEDS ORDERED: PROPOFOL IV EMULSION 10 MG/ML 20 ML VIAL IV ONE (08:27)
[2023-07-10] MEDS ORDERED: ROCURONIUM BROMIDE 10 MG/ML 5 ML VIAL IV ONE ×2 (08:27→10:28)
[2023-07-10] MEDS ORDERED: LIDOCAINE 2% 2 ML VIAL/AMP(20MG/ML) INFIL ONE (08:27)
[2023-07-10] MEDS ORDERED: ONDANSETRON INJ 2 MG/ML 2 ML VIAL ONE (08:27)
[2023-07-10] MEDS ORDERED: DEXAMETHASONE SOD INJ 4 MG/ML VIAL ONE (08:27)
[2023-07-10] MEDS ORDERED: SUGAMMADEX SODIUM 200 MG/2 ML VIAL IV ONE (08:28)
[2023-07-10] MEDS ORDERED: fentaNYL citrate PF 100 MCG/2 ML VIAL ONE ×2 (08:28→12:02)
[2023-07-10] MEDS ORDERED: PHENYLEPHRINE HCL 10 MG/ML VIAL ONE (08:47)
[2023-07-10] MEDS ORDERED: ATROPINE SULFATE 0.1 MG/ML 10ML SYR IV PRN (08:48)
[2023-07-10] MEDS ORDERED: ONDANSETRON INJ 2 MG/ML 2 ML VIAL IV PRN (08:48)
[2023-07-10] MEDS ORDERED: ePHEDrine sulfate 50 MG/ML AMP IV PRN (08:48)
--- NOTE | 2023-07-10 09:01 | Anesthesiology Consultation ---
Date of Service July 10, 2023 Assessment & Plan Chart Review Chart Review: Acceptable Risk for Surgery and Patient NOT seen in Pre Admission Testing Consults Requested none ASA ASA4 Proposed Anesthesia Anesthesia Type: General Anesthesia Line Insertion: Arterial line Risk / Benefits Reviewed With: PT / POA / Parent / Guardian, Accepts Plan and Informed Consent Obtained History Surgery Operation Date: 07/10/23 07:00 Proposed Procedures p T8-T12 Decompression Fusion - Robbie Harrell, Height/Weight Height: 5 ft 1 in Weight: 74.1 kg Allergies Allergy/AdvReac Type Severity Reaction Status Date / Time bacitracin Allergy Mild SITE Verified 07/03/23 21:19 SWELLING WITH TOPICAL NEOSPORIN neomycin Allergy Mild SITE Verified 07/03/23 21:19 SWELLING WITH TOPICAL NEOSPORIN polymyxin B Allergy Mild SITE Verified 07/03/23 21:19 SWELLING WITH TOPICAL NEOSPORIN adhesive AdvReac Intermediate SKIN RASH Verified 07/03/23 21:19 AFTER KNEE SURGERY-USES PAPER TAPE Medications Home Medications Medication Instructions Recorded Confirmed Last Taken atorvastatin 20 mg tablet 20 mg PO QPM 05/20/23 07/03/23 Unknown acetaminophen 325 mg tablet 650 mg PO Q6H PRN Pain 06/06/23 07/03/23 Unknown amlodipine 5 mg tablet 5 mg PO DAILY 06/06/23 07/03/23 Unknown polyethylene glycol 3350 17 17 g PO DAILY PRN Constipation 06/06/23 07/03/23 Unknown gram/dose oral powder (Miralax) benzocaine 15 mg-menthol 10 mg 1 mick PO DIRECTED PRN Cough 07/03/23 07/03/23 Unknown lozenges Active Medications Generic Name Dose Route Start Last Admin Trade Name Freq PRN Reason Stop Dose Admin Acetaminophen 650 mg 07/04/23 01:10 07/07/23 14:00 Acetaminophen 325 Mg Tab PO 08/03/23 01:09 650 mg Q6H PRN Administration Pain or Fever Amlodipine Besylate 5 mg 07/04/23 09:00 07/09/23 08:41 Amlodipine Besylate 5 Mg Tab PO 08/03/23 08:59 5 mg DAILY BARB Administration Atorvastatin Calcium 20 mg 07/04/23 21:00 07/09/23 21:22 Atorvastatin 20 Mg Tab PO 08/03/23 20:59 20 mg QPM BARB Administration Bisacodyl 10 mg 07/08/23 10:34 07/09/23 16:28 Bisacodyl 10 Mg Supp IA 08/07/23 10:33 10 mg DAILY PRN Administration Constipation Docusate Sodium 100 mg 07/08/23 10:45 07/09/23 21:22 Docusate Sodium 100 Mg Cap PO 08/07/23 10:44 100 mg BID BARB Administration Dexamethasone 4 mg/ Syringe 1 mls @ 1 mls/min 07/07/23 12:00 07/10/23 06:25 IV 08/06/23 11:59 1 mls/min Q6 BARB Administration Menthol 1 mick 07/04/23 01:25 07/04/23 01:30 Cough Drop (Sugar Free) Mick 24 Mick/1 Box BUCCAL 08/03/23 01:24 1 mick UD PRN Administration Cough Oxycodone HCl 10 mg 07/07/23 14:28 07/09/23 18:36 Oxycodone Hcl Ir 5 Mg Tab (Immediate Release) PO 07/19/23 14:10 10 mg Q6 PRN Administration Pain Oxycodone HCl 10 mg 07/07/23 21:00 07/09/23 21:22 Oxycodone Hcl 10 Mg Tabcr (Oxycontin) PO 07/21/23 20:59 10 mg BID BARB Administration Polyethylene Glycol 17 gm 07/04/23 01:10 07/08/23 11:28 Polyethylene (Miralax) 17 Gm Pack PO 08/03/23 01:09 17 gm DAILY PRN Administration Constipation NPO Date Last Intake of Fluids: 07/09/23 Time Last Intake of Fluids: 23:45 Date Last Intake of Solids: 07/09/23 Time Last Intake of Solids: 18:00 Past Medical History Medical History Arthritis Tricuspid regurgitation Rectocele Hyperlipemia Cystocele, midline Sleep apnea no device, wears mouth guard HS Osteopenia Benign essential hypertension no meds Exercise / Class Metabolic Activity III < 4 Walking/Shop/Light housework Past Family History Family History Father COPD (chronic obstructive pulmonary disease) Mother Breast cancer Other No family history of adverse response to anesthesia Denies family history of Ovarian cancer Prostate cancer Myocardial infarction Colorectal cancer Past Surgical History Surgical History History of colonoscopy History of cholecystectomy History of total shoulder replacement Rt History of total knee replacement R/L Past Anesthesia History No Hx of Anesthesia Complications and No Family Hx of Anesthesia Complications History of PONV No Hx of PONV and No Hx of Motion Sickness Social History Smoking Status: Former smoker Do You Dip or Chew Tobacco: No Hx Alcohol Use: Yes Alcohol type: wine alcohol intake frequency: holidays/special occasions only Hx Substance Use: No substance use type: does not use Review of Systems ROS Unobtainable: All systems reviewed & are unremarkable except as noted in HPI & below Physical Exam Vital Signs Last Vital Signs Temp 37.2 C 07/10/23 08:15 Pulse 84 07/10/23 08:15 Resp 20 07/10/23 08:15 BP 149/92 H 07/10/23 08:15 Pulse Ox 90 07/10/23 08:15 O2 Del Method Room Air 07/10/23 08:15 O2 Flow Rate 2 07/10/23 08:03 Constitutional no acute distress ENMT Mouth: no TMJ abnormality Thyromental Distance: > or= 3.5 Finger Breadths Mallampati Class: II Neck normal visual inspection and trachea midline; neck extension not limited Respiratory normal respiratory effort Auscultation: lungs clear to auscultation bilaterally Cardiovascular Rate/Rhythm: regular rate and regular rhythm Heart Sounds: no murmur Musculoskeletal Spine: normal cervical ROM Extremities: full ROM of extremities Neurologic moves all extremities Psychiatric Orientation: alert and oriented x 3 Testing Laboratory Results 07/09/23 06:09 07/09/23 06:09 Urine Color Dark Yellow 07/03/23 20:25 Urine Appearance Clear (Clear) 07/03/23 20:25 Urine pH 6.0 (4.5-7.5) 07/03/23 20:25 Ur Specific [place] 1.032 (1.000-1.030) H 07/03/23 20:25 Urine Protein 1+ (Negative) H 07/03/23 20:25 Urine Glucose (UA) Negative (Negative) 07/03/23 20:25 Urine Ketones 4+ (Negative) H 07/03/23 20:25 Urine Nitrite Negative (Negative) 07/03/23 20:25 Ur Leukocyte Esterase Negative (Negative) 07/03/23 20:25 Urine WBC (Auto) 1-5 /hpf (0-5) 07/03/23 20:25 Urine RBC (Auto) 0-4 /hpf (0-4) 07/03/23 20:25 U Hyaline Cast (Auto) 5-10 /lpf (0-5) H 07/03/23 20:25 U Epithel Cells (Auto) 10-20 /lpf (0-5) H 07/03/23 20:25 Urine Bacteria (Auto) Negative (Negative) 07/03/23 20:25 Echocardiogram Date: 05/24/23 EF: 55-60 Valvular Disease: + (severe)
--- NOTE | 2023-07-10 09:35 | History & Physical Bridge Note ---
Date of Service July 10, 2023 History & Physical Bridge Note I have examined the patient, reviewed the History & Physical and in the interval since the performance of the History & Physical I have noted the following changes of clinical significance: no changes noted thoracic decompression and fusion T8-T12
[2023-07-10] MEDS ORDERED: ceFAZolin 2000MG 2,000 MG/15 ML SYR IV ONE (09:46)
[2023-07-10] MEDS ORDERED: ceFAZolin 2,000 MG/15 ML IV PUSH IV ONE (09:49)
[2023-07-10] MEDS: oxyCODONE HCL 10 MG TABCR (OxyCONTIN) PO SCH ×2 (10:20→21:25)
[2023-07-10] MEDS: BUPIVACAINE/EPINEPHRINE 0.25% 1:200,000 30 ML VIAL ONE ×2 (10:20→10:31)
[2023-07-10] MEDS: amLODIPine BESYLATE 5 MG TAB PO SCH (10:20)
[2023-07-10] MEDS: DOCUSATE SODIUM 100 MG CAP PO SCH ×2 (10:20→21:25)
[2023-07-10] MEDS: ceFAZolin 330 MG/ML 1 GM VIAL ONE ×3 (10:20→11:36)
[2023-07-10] MEDS ORDERED: VANCOMYCIN HCL 1000MG/20ML VIAL ONE (11:29)
[2023-07-10] MEDS ORDERED: GENTAMICIN SULFATE 40 MG/ML 2 ML VIAL ONE (11:29)
[2023-07-10] MEDS ORDERED: FLOSEAL HEMOSTATIC MATRIX 10ML TOP ONE (11:37)
--- NOTE | 2023-07-10 12:03 | Operative Report ---
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 #3 placement of posterior segmental instrumentation thoracic decompression T9-T10 T10-T11. #2 posterior spinal fusion umbar Surgeon Robbie Harrell DO Rack Washer Kailee Alejandre Estimated Blood Loss 150 Findings Consistent with Post-Op Diagnosis Specimens none Indications This is an 83-year-old female who presents to the hospital several days ago with marked decline in status inability ambulate. Further imaging demonstrated evidence of a nonunion of a T10 Chance fracture and severe cord compression. Subsequently she is here for urgent stabilization. Description of Procedure Patient met with identified informed consent obtained. Patient was then taken to the operative suite underwent ablation placed in a prone position the Conrado table top of the Ben frame. All bony promises well-padded eyes inspected to ensure no external precipice spine. This point the thoracolumbar spine is prepped draped normal sterile fashion. Sharp dissection with the assistance of Bovie cautery form down to and exposing the lamina transverse processes of T8- T12. I then began placing pedicle screws and T8 caudally on the right. Noting the significant osteoporosis I elected to extend her dissection to T7 and L1 for additional points of fixation. I subsequently placed pedicle screws from T7-L1 bilaterally omitting the T10 pedicle screw. I then performed a decompression at T9-T10 and T10-T11 addressing all bony fragments within the canal from the facet compression I did note an old epidural hematoma and around the region of decompression. Appropriate size rods were then contoured and locked in position bilaterally. The transverse processes of T7-T8-T9 L67-F78-G17 and L1 were burred to subcortical bleeding bone. Infuse collagen sponge combined with cement bone graft placement posterior gutters. 15 round RENE drain inserted. I then placed 10 cc of Stimulan beads throughout the incision. 15 round RENE drain inserted. Incision was then closed with 1 Vicryl fascia 2-0 Vicryl subcutaneously and 4 Monocryl for final closure. Steri-Strips dressings placed. Patient waken taken recovery in stable condition. Please note spinal cord monitoring was utilized at the procedure no changes noted in Kailee Alejandre was present that the entire procedure on the patient positioning complex portions of the surgery and final skin closure. I attest to the content of the Intraoperative Record and any orders documented therein. Any exceptions are noted below.
[2023-07-10] MEDS: HYDROmorphone INJ 1 MG/ML SYRINGE IV PRN ×12 (12:29→13:35)
[2023-07-10] MEDS ORDERED: ACETAMINOPHEN 1,000 MG/100 ML VIAL IV STA (12:38)
[2023-07-10] MEDS ORDERED: KETOROLAC TROMETHAMINE 15 MG/ML VIAL IV ONE (12:38)
[2023-07-10] MEDS ORDERED: ACETAMINOPHEN 1000 MG/100 ML IV IV ONE (12:40)
[2023-07-10] MEDS ORDERED: KETOROLAC 30 MG/ML VIAL ONE (12:41)
[2023-07-10] MEDS ORDERED: LIDOCAINE 5% 1 PATCH TD STA (12:43)
--- NOTE | 2023-07-10 12:48 | Fluoroscopy Report ---
INTRAOPERATIVE RADIOGRAPHS CLINICAL HISTORY: Thoracolumbar spinal decompression and fusion. Fluoro time: 85 seconds Ka,r: 22.07 mGy FINDINGS: 5 spot fluoroscopic views of the thoracic spine are presented. There is evidence of multile ирина thoracic laminectomy and posterior fusion. Exact levels cannot be delineated on the provided fluo roscopic images. Interpedicular screws are present at all levels with the exception of a level showin g a compression fracture. This is likely T10 when correlated with the prior CT and MRI. IMPRESSION: Intraoperative images from multilevel thoracic spinal fusion. See operative report for de tailed findings. Electronically signed by: Aaron Vargas M.D. 07/10/2023 12:45 PM
--- NOTE | 2023-07-10 14:23 | Anesthesiology Progress Note ---
Date of Service July 10, 2023 Anesthesia Post Procedure Vital Signs Vital Signs: Temp Pulse Pulse Pulse Resp BP BP 07/10/23 13:55 96 H 16 102/64 07/10/23 13:45 90 14 96/56 L 07/10/23 13:35 99 H 24 102/70 07/10/23 13:25 102 H 28 H 110/57 L 07/10/23 13:15 95 H 19 98/61 L 07/10/23 13:05 91 H 16 111/68 07/10/23 12:55 93 H 15 121/70 07/10/23 12:45 73 24 128/73 07/10/23 12:35 83 20 111/64 07/10/23 12:25 95 H 25 H 115/72 07/10/23 12:19 36.2 C L 92 H 14 135/78 07/10/23 08:15 37.2 C 84 20 149/92 H 07/10/23 08:03 36.4 C L 70 14 140/72 07/10/23 08:03 07/10/23 07:48 74 07/10/23 04:00 36.9 C 73 18 128/74 07/10/23 00:00 36.6 C 83 18 148/81 H 07/09/23 22:00 73 07/09/23 20:30 07/09/23 19:30 36.6 C 77 18 153/81 H 07/09/23 16:49 86 07/09/23 15:10 36.9 C 98 H 16 124/68 Pulse Ox O2 Del Method O2 Flow Rate 07/10/23 13:55 92 Oxymask 6 07/10/23 13:45 92 Oxymask 6 07/10/23 13:35 91 Oxymask 6 07/10/23 13:25 91 Oxymask 8 07/10/23 13:15 92 Oxymask 8 07/10/23 13:05 93 Oxymask 8 07/10/23 12:55 91 Oxymask 10 07/10/23 12:45 93 Oxymask 10 07/10/23 12:35 93 Oxymask 15 07/10/23 12:25 91 Oxymask 15 07/10/23 12:19 87 L Oxymask 15 07/10/23 08:15 90 Room Air 07/10/23 08:03 94 Nasal Cannula 2 07/10/23 08:03 Nasal Cannula 2 07/10/23 07:48 07/10/23 04:00 94 Nasal Cannula 2 07/10/23 00:00 93 Nasal Cannula 2 07/09/23 22:00 07/09/23 20:30 Room Air 07/09/23 19:30 94 Nasal Cannula 2 07/09/23 16:49 07/09/23 15:10 93 Nasal Cannula 2 Pain Intensity Generalized: Pain Intensity: 5 Abdomen: Pain Intensity: 1 Back: Pain Intensity: 7 Transfer of Care Handoff Completed per policy Notes Mental Status: alert / awake / arousable Patient Amnestic to Procedure: Yes Nausea / Vomiting: adequately controlled Pain: adequately controlled Airway Patency, RR, SpO2: stable & adequate BP & HR: stable & adequate Hydration State: stable & adequate Anesthetic Complications: no major complications apparent and Pt Satisfied with anesthetic care Notes: Discussed patient with Dr. Harrell and will plan to admit patient to PCU for respiratory monitoring in setting of bilateral rib fractures exacerbated by prone positioning and multiple days of deconditioning/atelectasis. Oxygen weaned and patient saturations in low 90s. Encouraged to use incentive spirometry. Administered multimodal pain control including IV tylenol, toradol, dilaudid and lidocaine patch to left chest for rib fractures.
--- NOTE | 2023-07-10 15:58 | Communication Note ---
Date of Service: July 10, 2023 Went to the patient's room twice today. She still has not come back from the OR. Noted that there is an operative report which tells me that the the patient had her surgery completed. reviewed vital signs. Spoke to nurse. No concerns raised.
--- NOTE | 2023-07-10 18:21 | OB/GYN Consultation ---
Date of Consultation July 10, 2023 Assessment & Plan (1) Cystocele: Plan Discussed that if the patient is not having any abnormal or concerning symptoms with her pessary, there is no need to examine or address the pessary today. And , in fact, given her fresh postop status, would likely not be able to do this type of exam today anyway. We discussed that I have many pessary patients in my practice that come in every 3-4 months only to have their pessary removed, cleaned and replaced. As long as she is not having any concerns, would only need to do this that often. Once she is discharged from the hospital, would be happy to have her establish in clinic for evaluation. She was given my name and contact information. Certainly if an issue arises--pain, bleeding, d/c, would be happy to address again. Questions were answered for the patient and she is comfortable with w aiting for outpatient evaluation. History of Present Illness Reason for Consultation: "pessary management" Requesting Physician: DR. Harrell Attending Physician: Cathy Wallace MD History of Present Illness Patient is an 83yowf, PM who I have received a consult for "pessary maintenance". Patient was admitted with dehydration, s/p fall, inability to ambulate. Today the patient had back surgery with DR. Harrell. It seems the patient was concerned about her pessary. She has had a pessary for many years. She notes it is a ring. She has been managing it by removing every 2-3 weeks, cleaning and replacing. she notes she has not removed it in about 2.5 months and was concerned about it. She notes she has had no vaginal bleeding, no pain, no d/c, no odor. She notes she just thought it should be addressed. It seems she was a patient of our practice many years ago. The last Dr. she saw was Dr. Sifuentes who has not been with our practice for 10+ years. She notes she has some occasional spotting when she removes and replaces, but no other bleeding. 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 Allergies Allergy/AdvReac Type Severity Reaction Status Date / Time bacitracin Allergy Mild SITE Verified 07/03/23 21:19 SWELLING WITH TOPICAL NEOSPORIN neomycin Allergy Mild SITE Verified 07/03/23 21:19 SWELLING WITH TOPICAL NEOSPORIN polymyxin B Allergy Mild SITE Verified 07/03/23 21:19 SWELLING WITH TOPICAL NEOSPORIN adhesive AdvReac Intermediate SKIN RASH Verified 07/03/23 21:19 AFTER KNEE SURGERY-USES PAPER TAPE Home Medications Medication Instructions Recorded Confirmed Type atorvastatin 20 mg tablet 20 mg PO QPM 05/20/23 07/03/23 History acetaminophen 325 mg tablet 650 mg PO Q6H PRN Pain 06/06/23 07/03/23 History amlodipine 5 mg tablet 5 mg PO DAILY 06/06/23 07/03/23 History polyethylene glycol 3350 17 17 g PO DAILY PRN Constipation 06/06/23 07/03/23 History gram/dose oral powder (Miralax) benzocaine 15 mg-menthol 10 mg 1 kaden PO DIRECTED PRN Cough 07/03/23 07/03/23 History lozenges Patient History Medical History (Updated 07/10/23 @ 18:17 by Krupa Yepez MD, FACOG) Arthritis Tricuspid regurgitation Rectocele Hyperlipemia Cystocele, midline Sleep apnea no device, wears mouth guard HS Osteopenia Benign essential hypertension no meds Surgical History History of colonoscopy History of cholecystectomy History of total shoulder replacement Rt History of total knee replacement R/L Family History Father COPD (chronic obstructive pulmonary disease) Mother Breast cancer Other No family history of adverse response to anesthesia Denies family history of Ovarian cancer Prostate cancer Myocardial infarction Colorectal cancer Social History Smoking Status: Former smoker Second Hand Exposure: No; Do You Dip or Chew Tobacco: No; Hx Alcohol Use: Yes Alcohol type: wine Alcohol Intake Frequency: Monthly or Less Hx Substance Use: No Preferred Language: Lao Communication Ability: Effective Visual Impairment: No Limitations Hearing Ability: Normal Drill Bit Sharpener Required: No Beliefs That Will Affect Care: None marital status: / Current Living Situation: Alone Current Living Situation Comment: one level house current occupational status: retired How many Children do You have: 2 Feels Safe at Home: Yes Safety Concerns: Feels Safe At This Time Childhood Exposure to Second-Hand Smoke: Yes Diet: regular caffeine: Yes during the past year weight has: remained stable Dental Care, Regularly: Yes Physical Activity Frequency: Daily Seatbelt Use: always Sunscreen Use: Yes Do you think of yourself as: straight/heterosexual Gender Identity: Female Assistive Devices: Cane Physical Exam Physical Exam: Patient is resting in bed. Appears comfortable Exam deferred after shared decision making. Results & Data Vital Signs (Past 12 Hours) Vital Signs Temp Pulse Pulse Resp BP BP Pulse Ox 07/10/23 17:30 109/68 07/10/23 17:30 96 H 23 91 07/10/23 17:23 103/59 L 07/10/23 17:23 100 H 21 94 07/10/23 17:18 123 H 18 90 07/10/23 17:00 07/10/23 16:50 88 12 124/74 92 07/10/23 16:35 37.1 C 93 H 17 91/72 L 93 07/10/23 16:20 89 12 93/56 L 93 07/10/23 16:05 91 H 12 97/58 L 93 07/10/23 15:50 90 14 100/66 93 07/10/23 15:35 89 12 83/58 L 92 07/10/23 15:20 96 H 17 93/56 L 90 07/10/23 15:05 106 H 14 82/58 L 92 07/10/23 14:50 94 H 18 93/56 L 93 07/10/23 14:35 37.1 C 95 H 12 98/57 L 93 07/10/23 14:20 98 H 16 103/67 93 07/10/23 14:05 77 24 97/66 L 93 07/10/23 13:55 96 H 16 102/64 92 07/10/23 13:45 90 14 96/56 L 92 07/10/23 13:35 99 H 24 102/70 91 07/10/23 13:25 102 H 28 H 110/57 L 91 07/10/23 13:15 95 H 19 98/61 L 92 07/10/23 13:05 91 H 16 111/68 93 07/10/23 12:55 93 H 15 121/70 91 07/10/23 12:45 73 24 128/73 93 07/10/23 12:35 83 20 111/64 93 07/10/23 12:25 95 H 25 H 115/72 91 07/10/23 12:19 36.2 C L 92 H 14 135/78 87 L 07/10/23 08:15 37.2 C 84 20 149/92 H 90 07/10/23 08:03 36.4 C L 70 14 140/72 94 07/10/23 08:03 07/10/23 07:48 74 O2 Del Method O2 Flow Rate 07/10/23 17:30 07/10/23 17:30 07/10/23 17:23 07/10/23 17:23 07/10/23 17:18 07/10/23 17:00 Oxymask 6 07/10/23 16:50 Oxymask 6 07/10/23 16:35 Oxymask 6 07/10/23 16:20 Oxymask 6 07/10/23 16:05 Oxymask 6 07/10/23 15:50 Oxymask 6 07/10/23 15:35 Oxymask 6 07/10/23 15:20 Oxymask 6 07/10/23 15:05 Nasal Cannula 4 07/10/23 14:50 Nasal Cannula 4 07/10/23 14:35 Nasal Cannula 4 07/10/23 14:20 Oxymask 6 07/10/23 14:05 Oxymask 6 07/10/23 13:55 Oxymask 6 07/10/23 13:45 Oxymask 6 07/10/23 13:35 Oxymask 6 07/10/23 13:25 Oxymask 8 07/10/23 13:15 Oxymask 8 07/10/23 13:05 Oxymask 8 07/10/23 12:55 Oxymask 10 07/10/23 12:45 Oxymask 10 07/10/23 12:35 Oxymask 15 07/10/23 12:25 Oxymask 15 07/10/23 12:19 Oxymask 15 07/10/23 08:15 Room Air 07/10/23 08:03 Nasal Cannula 2 07/10/23 08:03 Nasal Cannula 2 07/10/23 07:48 PG Care Time/CCT Total # of Minutes Spent Total Time Spent with Patient: Total time spent is greater than 50% in coordination of care (as documented) at patient's floor/unit and/or counseling patient: Coding Level of Care Code 60753 INT INP/OBS CARE MIN Diagnoses Cystocele
[2023-07-10] MEDS: SODIUM CHLORIDE 0.9% 1,000 ML IV SCH (18:28)
[2023-07-10] MEDS: oxyCODONE HCL IR 5 MG TAB (IMMEDIATE RELEASE) PO PRN (19:50)
[2023-07-10] MEDS: ATORVASTATIN 20 MG TAB PO SCH (21:25)
[2023-07-11] MEDS: dexAMETHasone 4 MG in SYRINGE 0 ML IV SCH ×5 (00:21→23:45)
[2023-07-11] MEDS: oxyCODONE HCL IR 5 MG TAB (IMMEDIATE RELEASE) PO PRN ×3 (02:26→22:06)
[2023-07-11] MEDS: SODIUM CHLORIDE 0.9% 1,000 ML IV SCH ×2 (02:29→10:27)
[2023-07-11] MEDS: amLODIPine BESYLATE 5 MG TAB PO SCH (09:17)
[2023-07-11] MEDS: DOCUSATE SODIUM 100 MG CAP PO SCH ×2 (09:17→20:51)
[2023-07-11] MEDS: oxyCODONE HCL 10 MG TABCR (OxyCONTIN) PO SCH ×2 (09:20→20:49)
--- NOTE | 2023-07-11 13:22 | Orthopedic Progress Note ---
Date of Service July 11, 2023 Assessment & Plan (1) Generalized weakness: Plan: Assessment T10 bony Chance fracture with nonunion. Plan at this time she is tolerated this procedure well. We will initiate physical therapy and plan for rehab placement once stable. Admission and Anticipated Discharge Date Admission Date: July 03, 2023 Subjective Back pain is controlled denies any leg pain feels that she is regaining some sensation of lower extremities right greater than left. Physical Exam Physical Exam: On exam she is cooperative and appears comfortable. She has reasonable plantarflexion dorsiflexion bilaterally. Hip flexors on the right are stronger than the left. Sensory is intact to light touch. Results & Data Vital Signs (Past 12 Hours) Vital Signs Temp Pulse Pulse Resp BP BP BP 07/11/23 07:30 72 07/11/23 07:30 07/11/23 07:30 36.6 C 83 22 138/75 07/11/23 05:00 107/61 07/11/23 04:45 84 14 07/11/23 04:00 115/64 07/11/23 03:49 36.9 C 75 17 100/55 L 07/11/23 02:24 111/70 07/11/23 02:24 84 21 Pulse Ox O2 Del Method O2 Flow Rate 07/11/23 07:30 07/11/23 07:30 Nasal Cannula 6 07/11/23 07:30 92 Nasal Cannula 6 07/11/23 05:00 07/11/23 04:45 92 07/11/23 04:00 07/11/23 03:49 94 Oxymask 6 07/11/23 02:24 07/11/23 02:24 95
[2023-07-11] MEDS: ACETAMINOPHEN 325 MG TAB PO PRN (14:21)
--- NOTE | 2023-07-11 16:31 | Hospitalist Progress Note ---
Date of Service July 11, 2023 Assessment & Plan (1) Generalized weakness: Plan: Multifactorial, most likely patient requires rehab placement after become medically stable (2) Acute dehydration: Plan: Resolved with fluid resuscitation (3) Rhabdomyolysis: Plan: Resolved most likely secondary to fall (4) Severe aortic stenosis: (5) Hyperlipidemia: (6) Fracture of pubic ramus with routine healing: (7) Multiple closed fractures of ribs of both sides: (8) Fall: Plan Generalized weakness/decreased oral intake/mild dehydration/rhabdomyolysis- Patient had been doing well from her previously noted fractures and pelvis and ribs, until she inadvertently tripped over the extended foot rest of her reclining chair After initial injury, she did well with going to rehab, and feels that she would need to go to rehab again at this time. PT/OT and social organization professor on board. Rhabdomyolysis resolved. Dehydration resolved. Pain is fairly managed with current treatment T10 fracture Seen on lumbar spine MRI T10 vertebral body fracture with bulging into posterior wall of spinal cord with cord edema CT thoracic spine reviewed. Status post decompression spinal fusion 07/11 Preop evaluation completed by cardiology Pain control with oxycodone as needed and OxyContin twice daily Bowel regimen ordered Rhabdomyolysis/dehydration- resolved Hypertension- Continue amlodipine Admission and Anticipated Discharge Date Admission Date: July 03, 2023 Subjective Spinal stenosis status post placement of posterior segmental instrumentation thoracic decompression T9-T10 T10-T11. posterior spinal fusion lumbar covered the patient RENE drain, patient complaining of severe constipation Review of Systems Review of Systems: Per HPI Physical Exam Physical Exam: On exam she is cooperative and appears comfortable. She has reasonable plantarflexion dorsiflexion bilaterally. Hip flexors on the right are stronger than the left. Sensory is intact to light touch. Constitutional: no acute distress ENMT: Mouth: no TMJ abnormality Mallampati Class: II Neck: normal visual inspection and trachea midline; neck extension not limited Respiratory: normal respiratory effort Auscultation: lungs clear to auscultation bilaterally Cardiovascular: Rate/Rhythm: regular rate and regular rhythm Heart Sounds: no murmur Musculoskeletal: Spine: normal cervical ROM Extremities: full ROM of extremities Neurologic: moves all extremities Psychiatric: Orientation: alert and oriented x 3 Results & Data Results & Data Vital Signs (Past 12 Hours) Vital Signs Temp Pulse Pulse Resp BP BP Pulse Ox 07/11/23 15:20 07/11/23 14:57 36.4 C L 73 17 103/53 L 94 07/11/23 11:07 36.6 C 84 18 137/77 96 07/11/23 07:30 72 07/11/23 07:30 07/11/23 07:30 36.6 C 83 22 138/75 92 07/11/23 05:00 107/61 07/11/23 04:45 84 14 92 Pulse Ox O2 Del Method O2 Flow Rate O2 Flow Rate 07/11/23 15:20 91 6 07/11/23 14:57 Nasal Cannula 4 07/11/23 11:07 Nasal Cannula 6 07/11/23 07:30 07/11/23 07:30 Nasal Cannula 6 07/11/23 07:30 Nasal Cannula 6 07/11/23 05:00 07/11/23 04:45 PG Care Time/CCT Total # of Minutes Spent Total Time Spent with Patient: Total time spent is greater than 50% in coordination of care (as documented) at patient's floor/unit and/or counseling patient: Coding Level of Care Code 76687 SUB INP/OBS CARE 3/50MIN Diagnoses Generalized weakness R53.1 Acute dehydration E86.0 Rhabdomyolysis T79.6XXA Encounter type: initial encounter Rhabdomyolysis type: traumatic Severe aortic stenosis I35.0 Hyperlipidemia E78.5 Fracture of pubic ramus with routine healing S32.599D Multiple closed fractures of ribs of both sides S22.43XA Fall W19.XXXA (3) Rhabdomyolysis Encounter type: initial encounter Rhabdomyolysis type: traumatic Qualified Code(s): T79.6XXA - Traumatic ischemia of muscle, initial encounter
[2023-07-11] MEDS: LACTULOSE SYRUP 20 GM/30 ML UDC PO SCH ×2 (17:12→20:49)
[2023-07-11] MEDS: ATORVASTATIN 20 MG TAB PO SCH (20:49)
[2023-07-12] MEDS: oxyCODONE HCL IR 5 MG TAB (IMMEDIATE RELEASE) PO PRN ×3 (04:17→17:49)
[2023-07-12] MEDS: COUGH DROP (SUGAR FREE) LOZ 24 LOZ/1 BOX BUCCAL PRN (05:33)
[2023-07-12] MEDS: dexAMETHasone 4 MG in SYRINGE 0 ML IV SCH ×3 (05:33→17:50)
[2023-07-12] MEDS: amLODIPine BESYLATE 5 MG TAB PO SCH (08:41)
[2023-07-12] MEDS: DOCUSATE SODIUM 100 MG CAP PO SCH ×2 (08:45→20:42)
[2023-07-12] MEDS: oxyCODONE HCL 10 MG TABCR (OxyCONTIN) PO SCH ×2 (08:45→20:42)
[2023-07-12] MEDS: LACTULOSE SYRUP 20 GM/30 ML UDC PO SCH ×4 (08:45→20:43)
--- NOTE | 2023-07-12 12:56 | Orthopedic Progress Note ---
Date of Service July 12, 2023 Assessment & Plan (1) Generalized weakness: Plan: At this time we will continue therapy as tolerated. I would maintain her drain another 24 hours. Hopefully she will be a candidate for rehab this weekend. Admission and Anticipated Discharge Date Admission Date: July 03, 2023 Subjective Back pain is controlled leg symptoms improving Physical Exam Physical Exam: Patient is in the chair at the bedside. She appears comfortable. Proved strength testing lower extremities. Results & Data Vital Signs (Past 12 Hours) Vital Signs Temp Pulse Pulse Resp BP Pulse Ox O2 Del Method 07/12/23 11:11 36.5 C 80 18 128/70 94 Nasal Cannula 07/12/23 08:11 36.6 C 86 17 138/82 93 Nasal Cannula 07/12/23 07:15 75 07/12/23 07:15 Nasal Cannula 07/12/23 03:02 36.6 C 81 18 110/64 93 Nasal Cannula O2 Flow Rate 07/12/23 11:11 2 07/12/23 08:11 4 07/12/23 07:15 07/12/23 07:15 4 07/12/23 03:02 4
--- NOTE | 2023-07-12 17:49 | Hospitalist Progress Note ---
Date of Service July 12, 2023 Assessment & Plan (1) Generalized weakness: Plan: Multifactorial, most likely patient requires rehab placement after become medically stable (2) Acute dehydration: Plan: Resolved with fluid resuscitation (3) Rhabdomyolysis: Plan: Resolved most likely secondary to fall (4) Severe aortic stenosis: Plan: Outpatient follow up (5) Hyperlipidemia: (6) Fracture of pubic ramus with routine healing: Plan: Conservative management (7) Multiple closed fractures of ribs of both sides: Plan: Conservative managed (8) Fall: Plan: Mechanical fall, plan patient is medically stable will go to rehab Plan Generalized weakness/decreased oral intake/mild dehydration/rhabdomyolysis- Patient had been doing well from her previously noted fractures and pelvis and ribs, until she inadvertently tripped over the extended foot rest of her reclining chair After initial injury, she did well with going to rehab, and feels that she would need to go to rehab again at this time. PT/OT and social work case manager on board. Rhabdomyolysis resolved. Dehydration resolved. Pain is fairly managed with current treatment T10 fracture Seen on lumbar spine MRI T10 vertebral body fracture with bulging into posterior wall of spinal cord with cord edema CT thoracic spine reviewed. Status post decompression spinal fusion 07/11, currently patient has a RENE drain, according to the Ortho note RENE drain can be removed tomorrow, patient complained of abdominal pain and severe constipation, responded well to lactulose Preop evaluation completed by cardiology Pain control with oxycodone as needed and OxyContin twice daily Rhabdomyolysis/dehydration- resolved Hypertension- Continue amlodipine Admission and Anticipated Discharge Date Admission Date: July 03, 2023 Subjective Had large bowel movement with lactulose feels better Physical Exam Physical Exam: Patient is in the chair at the bedside. She appears comfortable. Proved strength testing lower extremities. Constitutional: no acute distress ENMT: Mouth: no TMJ abnormality Mallampati Class: II Neck: normal visual inspection and trachea midline; neck extension not limited Respiratory: normal respiratory effort Auscultation: lungs clear to auscultation bilaterally Cardiovascular: Rate/Rhythm: regular rate and regular rhythm Heart Sounds: no murmur Musculoskeletal: Spine: normal cervical ROM Extremities: full ROM of extremities Neurologic: moves all extremities Psychiatric: Orientation: alert and oriented x 3 Results & Data Results & Data Vital Signs (Past 12 Hours) Vital Signs Temp Pulse Pulse Resp BP Pulse Ox O2 Del Method 07/12/23 15:12 36.6 C 85 20 114/70 92 Nasal Cannula 07/12/23 11:11 36.5 C 80 18 128/70 94 Nasal Cannula 07/12/23 08:11 36.6 C 86 17 138/82 93 Nasal Cannula 07/12/23 07:15 75 07/12/23 07:15 Nasal Cannula O2 Flow Rate 07/12/23 15:12 4 07/12/23 11:11 2 07/12/23 08:11 4 07/12/23 07:15 07/12/23 07:15 4 PG Care Time/CCT Total # of Minutes Spent Total Time Spent with Patient: Total time spent is greater than 50% in coordination of care (as documented) at patient's floor/unit and/or counseling patient: Coding Level of Care Code 15996 SUB INP/OBS CARE 3/50MIN Diagnoses Generalized weakness R53.1 Acute dehydration E86.0 Rhabdomyolysis T79.6XXA Encounter type: initial encounter Rhabdomyolysis type: traumatic Severe aortic stenosis I35.0 Hyperlipidemia E78.5 Fracture of pubic ramus with routine healing S32.599D Multiple closed fractures of ribs of both sides S22.43XA Fall W19.XXXA (3) Rhabdomyolysis Encounter type: initial encounter Rhabdomyolysis type: traumatic Qualified Code(s): T79.6XXA - Traumatic ischemia of muscle, initial encounter
[2023-07-12] MEDS: ATORVASTATIN 20 MG TAB PO SCH (20:42)
[2023-07-13] MEDS: dexAMETHasone 4 MG in SYRINGE 0 ML IV SCH ×5 (00:37→22:55)
[2023-07-13] MEDS: oxyCODONE HCL IR 5 MG TAB (IMMEDIATE RELEASE) PO PRN ×2 (05:45→15:37)
[2023-07-13] MEDS: LACTULOSE SYRUP 20 GM/30 ML UDC PO SCH ×3 (08:28→14:21)
[2023-07-13] MEDS: ACETAMINOPHEN 325 MG TAB PO PRN ×2 (08:32→15:37)
[2023-07-13] MEDS: oxyCODONE HCL 10 MG TABCR (OxyCONTIN) PO SCH ×2 (08:32→20:47)
[2023-07-13] MEDS: DOCUSATE SODIUM 100 MG CAP PO SCH ×2 (08:34→20:48)
[2023-07-13] MEDS: amLODIPine BESYLATE 5 MG TAB PO SCH (08:34)
--- NOTE | 2023-07-13 10:27 | Orthopedic Progress Note ---
Date of Service July 13, 2023 Assessment & Plan (1) Generalized weakness: Plan: At this time we will continue to encourage activity as tolerated with physical therapy. From an orthopedic standpoint she is stable for rehab tomorrow. Anticipate removing the drain tomorrow. Admission and Anticipated Discharge Date Admission Date: July 03, 2023 Subjective Back pain controlled leg symptoms improving. Still noting significant numbness. Physical Exam Physical Exam: Patient is in the chair at the bedside. She has improved bilateral quadricep strength. Plantarflexion dorsiflexion intact. Results & Data Vital Signs (Past 12 Hours) Vital Signs Temp Pulse Resp BP BP Pulse Ox Pulse Ox 07/13/23 08:48 36.8 C 83 18 156/77 H 95 07/13/23 03:00 36.6 C 87 20 127/68 94 07/13/23 00:55 93 07/13/23 00:51 94 07/12/23 23:37 07/12/23 23:29 36.9 C 95 H 16 122/65 93 O2 Del Method O2 Del Method O2 Flow Rate O2 Flow Rate 07/13/23 08:48 Nasal Cannula 2.5 07/13/23 03:00 Nasal Cannula 3 07/13/23 00:55 Nasal Cannula 3 07/13/23 00:51 Nasal Cannula 3 07/12/23 23:37 Nasal Cannula 4 07/12/23 23:29 Nasal Cannula Queries Orthopedic Spine Obesity: Yes
[2023-07-13] MEDS ORDERED: LACTULOSE SYRUP 20 GM/30 ML UDC PO PRN (16:28)
--- NOTE | 2023-07-13 18:22 | Hospitalist Progress Note ---
Date of Service July 13, 2023 Assessment & Plan (1) Generalized weakness: Plan: Multifactorial, most likely patient requires rehab placement after become medically stable (2) Acute dehydration: Plan: Resolved with fluid resuscitation (3) Rhabdomyolysis: Plan: Resolved most likely secondary to fall (4) Severe aortic stenosis: Plan: Outpatient follow up (5) Hyperlipidemia: (6) Fracture of pubic ramus with routine healing: Plan: Conservative management (7) Multiple closed fractures of ribs of both sides: Plan: Conservative managed (8) Fall: Plan: Mechanical fall, plan patient is medically stable will go to rehab Plan Generalized weakness/decreased oral intake/mild dehydration/rhabdomyolysis- Patient had been doing well from her previously noted fractures and pelvis and ribs, until she inadvertently tripped over the extended foot rest of her reclining chair Patient requires rehab, her case is complicated with T10 fracture, she is status post decompression and spinal fusion PT/OT and social work program coordinator on board. Rhabdomyolysis resolved. Dehydration resolved. Pain is fairly managed with current treatment See patient RENE drain Rhabdomyolysis/dehydration- resolved Hypertension- Continue amlodipine Admission and Anticipated Discharge Date Admission Date: July 03, 2023 Subjective No complaints today. Physical Exam Physical Exam: Patient is in the chair at the bedside. She has improved bilateral quadricep strength. Plantarflexion dorsiflexion intact. Constitutional: no acute distress ENMT: Mouth: no TMJ abnormality Mallampati Class: II Neck: normal visual inspection and trachea midline; neck extension not limited Respiratory: normal respiratory effort Auscultation: lungs clear to auscultation bilaterally Cardiovascular: Rate/Rhythm: regular rate and regular rhythm Heart Sounds: no murmur Musculoskeletal: Spine: normal cervical ROM Extremities: full ROM of extremities Neurologic: moves all extremities Psychiatric: Orientation: alert and oriented x 3 Results & Data Results & Data Vital Signs (Past 12 Hours) Vital Signs Temp Pulse Resp BP BP Pulse Ox O2 Del Method 07/13/23 16:35 36.5 C 85 17 99/66 L 98 Nasal Cannula 07/13/23 12:16 36.8 C 78 18 152/101 H 98 Nasal Cannula 07/13/23 11:54 96 07/13/23 08:48 36.8 C 83 18 156/77 H 95 Nasal Cannula O2 Flow Rate 07/13/23 16:35 2.0 07/13/23 12:16 2.5 07/13/23 11:54 3 07/13/23 08:48 2.5 PG Care Time/CCT Total # of Minutes Spent Total Time Spent with Patient: Total time spent is greater than 50% in coordination of care (as documented) at patient's floor/unit and/or counseling patient: Coding Level of Care Code 87729 SUB INP/OBS CARE 2/35MIN Diagnoses Generalized weakness R53.1 Acute dehydration E86.0 Rhabdomyolysis T79.6XXA Encounter type: initial encounter Rhabdomyolysis type: traumatic Severe aortic stenosis I35.0 Hyperlipidemia E78.5 Fracture of pubic ramus with routine healing S32.599D Multiple closed fractures of ribs of both sides S22.43XA Fall W19.XXXA (3) Rhabdomyolysis Encounter type: initial encounter Rhabdomyolysis type: traumatic Qualified Code(s): T79.6XXA - Traumatic ischemia of muscle, initial encounter
[2023-07-13] MEDS ORDERED: MELATONIN 3 MG TAB PO PRN (19:50)
[2023-07-13] MEDS: ATORVASTATIN 20 MG TAB PO SCH (20:47)
[2023-07-14] MEDS: dexAMETHasone 4 MG in SYRINGE 0 ML IV SCH ×3 (05:26→17:07)
[2023-07-14] MEDS: oxyCODONE HCL IR 5 MG TAB (IMMEDIATE RELEASE) PO PRN ×3 (05:32→17:08)
[2023-07-14] MEDS: ACETAMINOPHEN 325 MG TAB PO PRN (05:32)
[2023-07-14] MEDS: DOCUSATE SODIUM 100 MG CAP PO SCH (07:41)
[2023-07-14] MEDS: amLODIPine BESYLATE 5 MG TAB PO SCH (07:41)
[2023-07-14] MEDS: oxyCODONE HCL 10 MG TABCR (OxyCONTIN) PO SCH (07:41)
--- NOTE | 2023-07-14 13:24 | Orthopedic Progress Note ---
Date of Service July 14, 2023 Assessment & Plan (1) Generalized weakness: Plan: We will continue physical therapy occupational therapy. Discontinue her drain today. She is cleared to discharge to rehab from an orthopedic standpoint. Admission and Anticipated Discharge Date Admission Date: July 03, 2023 Subjective Back pain controlled leg symptoms improving Physical Exam Physical Exam: Patient is in the chair at the bedside. Stable strength testing. Results & Data Vital Signs (Past 12 Hours) Vital Signs Temp Pulse Resp BP Pulse Ox O2 Del Method O2 Flow Rate 07/14/23 07:58 36.6 C 75 18 106/67 95 Room Air 07/14/23 07:20 Nasal Cannula 1 Queries Orthopedic Spine Obesity: Yes
--- NOTE | 2023-07-14 17:12 | Discharge Summary ---
Date of Service July 14, 2023 Admission HPI Per Admitting Provider The patient is an 83-year-old female with a past medical history including severe aortic stenosis, hyperlipidemia, hyperlipidemia, sleep apnea, hypertension, mechanical falls leading to fractures as noted above. She presents to the emergency department due to a return of and worsening of pain in her pelvis, after she initially injured herself over a month ago while in [place], and then reinjured herself a couple days ago and then again today. She reports that she is very fatigued at this time, feels very weak, and thinks that she probably needs to go back to rehab again. Principal Diagnosis T7-L1 compression fracture secondary to fall status post decompression Fusion with Application of Bone Morphogenetic Protein and Stimulan Antibiotic Beads Discharge Exam Patient is in the chair at the bedside. She has improved bilateral quadricep strength. Plantarflexion dorsiflexion intact. Constitutional no acute distress ENMT Mouth: no TMJ abnormality Mallampati Class: II Neck normal visual inspection and trachea midline; neck extension not limited Respiratory normal respiratory effort Auscultation: lungs clear to auscultation bilaterally Cardiovascular Rate/Rhythm: regular rate and regular rhythm Heart Sounds: no murmur Musculoskeletal Spine: normal cervical ROM Extremities: full ROM of extremities Neurologic moves all extremities Psychiatric Orientation: alert and oriented x 3 Discharge Data Allergies Allergy/AdvReac Type Severity Reaction Status Date / Time bacitracin Allergy Mild SITE Verified 07/03/23 21:19 SWELLING WITH TOPICAL NEOSPORIN neomycin Allergy Mild SITE Verified 07/03/23 21:19 SWELLING WITH TOPICAL NEOSPORIN polymyxin B Allergy Mild SITE Verified 07/03/23 21:19 SWELLING WITH TOPICAL NEOSPORIN adhesive AdvReac Intermediate SKIN RASH Verified 07/03/23 21:19 AFTER KNEE SURGERY-USES PAPER TAPE Consultations 07/03/23 21:10 ED Decision to Admit Stat 07/06/23 04:37 Consult Orthopedic Spine Surgery Routine 07/07/23 13:56 Consult Cardiology Routine 07/08/23 11:28 Consult Anesthesiology Routine 07/10/23 17:30 Consult Gynecology Routine Procedures Performed Operation Date: 07/10/23 07:00 Actual Procedures p T7-L1 Decompression Fusion with Application of Bone Morphogenetic Protein and Stimulan Antibiotic Beads, Spinal Cord Monitoring(Not Applicable) - Robbie Harrell, DO Ordered Studies 07/03/23 18:30 CT lumbar spine wo con Stat 07/03/23 18:31 CT head/brain wo con Stat 07/03/23 20:53 CT abd pelvis wo con Stat 07/05/23 18:04 MRI Lumbar Spine [MR lumbar spine wo con] Stat 07/07/23 10:13 MR thoracic spine wo con Urgent 07/07/23 14:18 CT thoracic spine wo con Urgent 07/10/23 [place] thoracic spine 2V Routine Hospital Course (1) Generalized weakness: Multifactorial, most likely patient requires rehab placement after become medically stable (2) Acute dehydration: Resolved with fluid resuscitation (3) Rhabdomyolysis: Resolved most likely secondary to fall (4) Severe aortic stenosis: Outpatient follow up the patient could be a candidate for tall walker, patient is to follow-up with thoracic surgeon (5) Hyperlipidemia: (6) Fracture of pubic ramus with routine healing: Conservative management (7) Multiple closed fractures of ribs of both sides: Conservative managed (8) Fall: Mechanical fall, plan patient is medically stable will go to rehab Plan Generalized weakness/decreased oral intake/mild dehydration/rhabdomyolysis- Patient had been doing well from her previously noted fractures and pelvis and ribs, until she inadvertently tripped over the extended foot rest of her reclining chair Patient requires rehab, her case is complicated with T10 fracture, she is status post decompression and spinal fusion by Dr. Harrell, patient is to follow-up with Dr. Harrell in 2 weeks PT/OT and social security assessor on board. Rhabdomyolysis resolved. Dehydration resolved. Pain is fairly managed with current treatment See patient RENE drain Rhabdomyolysis/dehydration- resolved Hypertension- Continue amlodipine Home Health Attestation I certify that this patient is under my care and that I, or a physicians medical record assistant working with me, had a face to-face encounter that meets the home health [id number] encounter requirements with this patient. The encounter with the patient was in whole, or in part, for the following medical condition, which is the primary reason for home health care (list medical condition): I certify that, based on my findings, the following services are medically necessary home health services: My clinical findings support the need for the above services because: Further, I certify that my clinical findings support that this patient is homebound (i.e. absences from home require considerable and taxing effort and a re for medical reasons or [facility] services or infrequently or of short duration when for other reasons) because: Certification for Home Health Services: Based on the above findings, I certify that this patient is confined to the home and needs intermittent half-way care, physical therapy and/or speech therapy or continues to need occupational therapy. The patient is under my care, and I have initiated the establishment of the plan of care. This patient will be followed by a physician who will periodically review the plan of care. Total Time Total Time Spent Total Time Spent (In Minutes): 45 mins Discharge Plan Discharge Items Patient Disposition: Transfer Inpatient Rehab Fac Reason For Visit: FALLS, HYPOXIA Discharge Diagnosis: Fall , Spinal stenosis, Condition on Discharge: Fair Activity: Resume your previous activity Lifting: None Bathing: No limitations Non-emergency contact: Primary Care Provider and Surgeon Call non-emergency contact if: you have any medication questions Follow-up/Referrals: Rayne Boucher MD [Primary Care Provider] - Robbie Harrell DO [Surgeon] - 07/28/23 Diet: Heart Healthy Addtl Attending Provider Instructions: please follow with your surgeon in 2 weeks Pending Studies at Discharge: No Stand-Alone Forms: My [facility] Skilled Items Patient informed of condition?: Yes DNR: No Discharge Level of Care: Skilled Communicable Disease: No Discharge Prognosis: Stable Lines: None Urinary Catheter: No Medications and DC Order Prescriptions: New melatonin 3 mg Tablet 3 mg PO HS PRN (Reason: sleep) Qty: 30 0RF bisacodyl 10 mg Suppository 10 mg CO DAILY PRN (Reason: constipation) Qty: 12 0RF oxycodone 5 mg Tablet 10 mg PO Q6 PRN (Reason: pain) Qty: 20 0RF lactulose 20 gram/30 mL Solution 20 g PO QID PRN (Reason: constipation) Qty: 400 0RF oxycodone [OxyContin] 10 mg Tablet,Oral Only,Ext.Rel.12 Hr 10 mg PO BID Qty: 20 0RF Continued acetaminophen 325 mg tablet 650 mg PO Q6H PRN (Reason: Pain) amlodipine 5 mg tablet 5 mg PO DAILY polyethylene glycol 3350 [Miralax] 17 gram/dose powder 17 g PO DAILY PRN (Reason: Constipation) atorvastatin 20 mg tablet 20 mg PO QPM benzocaine-menthol 15-10 mg Lozenge 1 kaden PO DIRECTED PRN (Reason: Cough) Discharge Orders: Discharge Order (Routine); Ordered 07/14/23 Ordered By: Tyrone Diaz Admission Data Admit Date/Time: 07/03/23 22:33 Attending Provider: Tyrone Diaz Admit Provider: Roc Dacosta Primary Care Provider: Rayne Boucher Other Providers: [facility]; Roc Dacosta; Robbie Harrell; Femi Lee; Miguel Edwards; Rachel Silva; Brea Mijares; Krupa Yepez; Obdulia Samuels; Crystal London; Juan Blank; Georgie Covarrubias; Glynn Hyde; Ora Bull; Janene Beasley; Julius Chowdary Other Interventions: Discharge Summary Assessment (RN) Last Done: 07/14/23 16:37 Coding Level of Care Code 91614 INP/OBS DISCH >30 MIN Diagnoses Generalized weakness R53.1 Acute dehydration E86.0 Rhabdomyolysis T79.6XXA Encounter type: initial encounter Rhabdomyolysis type: traumatic Severe aortic stenosis I35.0 Hyperlipidemia E78.5 Fracture of pubic ramus with routine healing S32.599D Multiple closed fractures of ribs of both sides S22.43XA Fall W19.XXXA
--- NOTE | 2023-07-17 05:48 | Coding Query ---
CODING QUERY To promote full compliance with coding requirements relating to patient care, provider participation is requested in all cases of auditing coder uncertainty. Please assist us with the question(s) below: Coding Question(s): Pt with history of pubic fracture & multiple rib fxs- healing - admitted after repeat fall with multiple vertebral fx's. Dr. Harrell fused Thoracic and lumbar segments. 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 Please document, if known or suspected, the etiology of the vertebral fractures. Thanks for your help. Emil Chopra [facility] Physician's Response(s): mutiple fracture due to extensive osteoprosis Principal Diagnosis: "that condition established after study, to be chiefly responsible for occasioning the admission of the patient to the hospital for care." Co-Existing Principal Diagnosis: "when two or more diagnoses equally meet the criteria for principal diagnosis as determined by the circumstances of admission, diagnostic work up, and/or therapy provided, and the Alphabetic Index, Tabular List, or another coding guideline does not provide sequencing direction, any one of the diagnoses may be sequenced first." "When the physician has documented what appears to be a current diagnosis in the body of the record, but has not included the diagnosis in the final diagnostic statement, the physician should be asked whether the diagnosis should be added." (Source Coding [facility] 2 QTR90. p3-4) [place]OOKE
== END 2023-07-14 17:28 | DRG 460 ==
LOC: ED 17:55 → SUATTDRO 22:33 → 2N 22:33 → 2E 07-10 16:52 → 3N 07-13 21:51

== ENCOUNTER 2024-04-29 07:47 | Observation (INO) ==
--- NOTE | 2024-03-27 11:11 | PAT Medication Instructions ---
Medication Instructions Date of Service March 27, 2024 Home Medications Medication Instructions Recorded denosumab 60 mg/mL subcutaneous 60 mg subcut ONCE #1 mL 10/05/23 syringe (Prolia) atorvastatin 20 mg tablet 20 mg PO QPM #90 tabs 12/29/23 Medication List: acetaminophen 325 mg tablet 650 mg PO Q6H PRN Pain denosumab 60 mg/mL subcutaneous syringe (Prolia) 60 mg subcut ONCE atorvastatin 20 mg tablet 20 mg PO QPM cholecalciferol (vitamin D3) 10 mcg (400 unit) tablet (Vitamin D3) 10 mcg PO QAM multivitamin 1 tab PO QAM MEDICATION INSTRUCTIONS: DO NOT take the morning of surgery cholecalciferol (vitamin D3) 10 mcg (400 unit) tablet (Vitamin D3) 10 mcg PO QAM multivitamin 1 tab PO QAM Take morning of surgery With a small sip of water, OTHERWISE NOTHING TO EAT OR DRINK AFTER MIDNIGHT: acetaminophen 325 mg tablet 650 mg PO Q6H PRN Pain Take evening before surgery acetaminophen 325 mg tablet 650 mg PO Q6H PRN Pain atorvastatin 20 mg tablet 20 mg PO QPM Other Notes CHECK WITH PRESCRIBER FOR INSTRUCTIONS: denosumab 60 mg/mL subcutaneous syringe (Prolia) 60 mg subcut ONCE If you have any questions please call us at [phone] or [phone] or [phone] or [phone]
--- NOTE | 2024-04-03 14:16 | Anesthesiology Consultation ---
Date of Service April 03, 2024 Assessment & Plan (1) Encounter for pre-operative examination: - Infectious disease screening: Per assessment on 04/03/24: No known recent infectious disease contacts or current infectious disease symptoms. - Outpatient joint assessment: Pt currently scheduled for inpatient pathway. If surgeon requests review for outpatient joint pathway, patient not recommended candidate for outpatient joint program from anesthesia standpoint based on available information. - S/P T8-T12 Decompression Fusion (07/10/23): Grade view 1, Tan#2, ETT 7.0 at [facility] - Aortic stenosis: Echo done 05/2023 notes moderate to severe aortic stenosis (ABRAHAM 1.2 cm, MG 31 mmHg). Patient seen by cardiology inpatient prior to 07/2023 Thoracic decompression/fusion done at [facility]- at that time, felt okay to proceed with surgery from cardiac perspective. Patient states she was not told to establish with cardiology and was unaware of aortic stenosis hx. Case reviewed with Dr. Lira. Preop cardiac evaluation needed given history of moderate-severe aortic stenosis and not established with cardiology- PAT corporate secretary arranged. Patient acceptable risk for surgery pending preop cardiology evaluation ([facility], appt 04/12). Chart Review Chart Review: Patient seen in Pre Admission Testing Teaching & Discussion Pre-Anesthesia Teaching/Discussion Notes: Instructed NPO after midnight before surgery,except medications with 15 cc of water. Medication instructions provided according to the PAT guidelines. History Surgery Operation Date: 04/29/24 12:15 Proposed Procedures p Left Reverse Total Shoulder Arthroplasty - Darinel Muhammad, Height/Weight Height: 5 ft Weight: 70.3 kg Allergies Allergy/AdvReac Type Severity Reaction Status Date / Time bacitracin Allergy Mild Site Verified 04/02/24 16:05 swelling (with topical Neosporin) neomycin Allergy Mild Site Verified 04/02/24 16:05 swelling (with topical Neosporin) polymyxin B Allergy Mild Site Verified 04/02/24 16:05 swelling (with topical Neosporin) adhesive AdvReac Intermediate Skin rash Verified 04/02/24 16:05 after knee surgery (uses paper tape) Medications Home Medications Medication Instructions Recorded Confirmed Last Taken acetaminophen 325 mg tablet 650 mg PO Q6H PRN Pain 06/06/23 03/27/24 Unknown denosumab 60 mg/mL subcutaneous 60 mg subcut ONCE #1 mL 10/05/23 03/27/24 Unknown syringe (Prolia) atorvastatin 20 mg tablet 20 mg PO QPM #90 tabs 12/29/23 03/27/24 Unknown cholecalciferol (vitamin D3) 10 10 mcg PO QAM 03/27/24 03/27/24 Unknown mcg (400 unit) tablet (Vitamin D3) multivitamin 1 tab PO QAM 03/27/24 03/27/24 Unknown Past Medical History Medical History (Updated 04/02/24 @ 16:10 by Rachel Camacho) Aortic stenosis Echo 05/2023: Moderate to severe aortic stenosis (ABRAHAM 1.2cm2, MG 31mmhg) Inpatient [facility] cardiac evaluation 07/2023 Arthritis Cystocele, midline History of aspergillosis per record, patient denies History of compression fracture of spine thoracic History of rhabdomyolysis 06/2023, after a fall and hospitalization Hyperlipemia Kyphosis Osteoarthritis Osteoporosis Rectocele Sleep apnea no device Exercise / Class Metabolic Activity III < 4 Walking/Shop/Light housework Past Family History Family History Father COPD (chronic obstructive pulmonary disease) Mother Breast cancer Other No family history of adverse response to anesthesia Denies family history of Ovarian cancer Prostate cancer Myocardial infarction Colorectal cancer Past Surgical History Surgical History (Updated 04/02/24 @ 16:10 by Rachel Camacho) History of cholecystectomy History of colonoscopy History of spinal fusion T8-T12 Decompression Fusion (07/10/23): Grade view 1, Tan#2, ETT 7.0 at [facility] History of total knee replacement R/L History of total shoulder replacement Right Past Anesthesia History No Hx of Anesthesia Complications and No Family Hx of Anesthesia Complications History of PONV No Hx of PONV and No Hx of Motion Sickness Social History Smoking Status: Former smoker Do You Dip or Chew Tobacco: No Smoking End Date: Quit several years ago Hx Alcohol Use: Yes alcohol intake frequency: holidays/special occasions only (Rare) Hx Substance Use: No substance use type: does not use Review of Systems Patient denies chest pain, shortness of breath, fever, chills, cough, wheezing, palpitations. Physical Exam Vital Signs BP 131/89 P 98 TEMP 98.1 SP02 95%RA RESP 16 Physical Mildly decreased cervical extension range of motion. Full TMJ range of motion. TMD > 3.5 finger breaths Mallampati Score II Dentition: intact, + cap Lungs: clear throughout to auscultation Cardiac: regular rate and rhythm, III-IV/ systolic murmur with carotid radiation Spine: + kyphosis Extremities: no LE edema Lab Results Anesthesia Preop Results Results Anesthesia Widget: WBC 6.48 K/ul (4.8-10.8) 04/03/24 Hgb 13.5 g/dl (12.0-16.0) 04/03/24 Hct 41.5 % (37.0-47.0) 04/03/24 Plt 206 K/uL (130-400) 04/03/24 Na 140 mmol/L (136-145) 04/03/24 K 4.2 mmol/L (3.5-5.1) 04/03/24 Cl 104 mmol/L (98-107) 04/03/24 CO2 28 mmol/L (21-32) 04/03/24 BUN 14 mg/dl (6-23) 04/03/24 Creat 0.53 mg/dl (0.6-1.2) L 04/03/24 Glucose Level 90 mg/dl (70-99(Fasting)) 04/03/24 PT 10.8 Seconds (9.0-12.0) 04/03/24 PTT 26 Seconds (21-31) 04/03/24 INR 1.0 (0.9-1.1) 04/03/24 Blood Type B Positive 04/03/24 Antibody Screen NEGATIVE 04/03/24 Testing Electrocardiogram Date: 04/03/24 ST at 101bpm. Minimal voltage criteria for LVH, may be normal variant (R in aVL). Inferior infarct, age undetermined. Possible anterior infarct (cited on or before 05/20/23 per grades 7 and 8 teacher comparison). Chest X-Ray Date: 04/03/24 FINDINGS: Right shoulder arthroplasty and posterior fixation hardware the thoracic spine is seen. Calcified aortic knob is seen. The lungs are clear. No evidence of pleural effusion or pneumothorax. IMPRESSION: No acute chest disease. Echocardiogram Date: 05/24/23 LVEF 55 to 60%. Borderline LVH. Mild LAE. Trace TR. Borderline pulmonary hypertension; PASP 37 mmHg. Calcified and restricted aortic valve with moderate to severe aortic stenosis (ABRAHAM 1.2 cm, MG 31 mmHg).
--- NOTE | 2024-04-25 11:18 | History & Physical Report ---
Date of Service April 25, 2024 Assessment & Plan (1) Osteoarthritis of left shoulder: We will proceed with a left reverse shoulder arthroplasty. Postoperatively she will be kept in a sling and kept overnight in the hospital for postop medical management. She plans to [facility] upon discharge. History of Present Illness Chief Complaint: Osteoarthritis of the left shoulder. Primary Care Provider: Rayne Boucher MD Mart is a pleasant 83-year-old female who I did a right reverse arthroplasty on in 2015. She has done very well with that. Unfortunately, she is now dealing with left shoulder pain. She has difficulty doing things away from her body or up overhead. She has crepitus in her shoulder. She is unable to sleep at night. She has had cortisone injections without relief. X-rays have shown worsening osteoarthritis of the left shoulder. After failing conservative treatment, she has elected proceed with a left reverse shoulder arthroplasty. Allergies Allergy/AdvReac Type Severity Reaction Status Date / Time bacitracin Allergy Mild Site Verified 04/12/24 11:29 swelling (with topical Neosporin) neomycin Allergy Mild Site Verified 04/12/24 11:29 swelling (with topical Neosporin) polymyxin B Allergy Mild Site Verified 04/12/24 11:29 swelling (with topical Neosporin) adhesive AdvReac Intermediate Skin rash Verified 04/12/24 11:29 after knee surgery (uses paper tape) Home Medications Medication Instructions Recorded Confirmed Type acetaminophen 325 mg tablet 650 mg PO Q6H PRN Pain 06/06/23 04/12/24 History denosumab 60 mg/mL subcutaneous 60 mg subcut ONCE #1 mL 10/05/23 04/12/24 Rx syringe (Prolia) atorvastatin 20 mg tablet 20 mg PO QPM #90 tabs 12/29/23 04/12/24 Rx cholecalciferol (vitamin D3) 10 10 mcg PO QAM 03/27/24 04/12/24 History mcg (400 unit) tablet (Vitamin D3) multivitamin 1 tab PO QAM 03/27/24 04/12/24 History Past Med/Surg History Problem List Osteoarthritis of left shoulder Olecranon bursitis, left elbow Osteoporosis Kyphosis Glenohumeral arthritis Positive colorectal cancer screening using Cologuard test Cystocele Encounter for pre-operative examination Hyperlipemia (Chronic) Dense breast tissue Vitamin D deficiency (Chronic) Osteopenia Rotator cuff tear arthropathy of right shoulder Hyperlipidemia Medical History History of aspergillosis per record, patient denies History of rhabdomyolysis 06/2023, after a fall and hospitalization History of compression fracture of spine thoracic Sleep apnea no device Osteoarthritis Osteoporosis Kyphosis Hyperlipemia Aortic stenosis Echo 05/2023: Moderate to severe aortic stenosis (ABRAHAM 1.2cm2, MG 31mmhg) Inpatient [facility] cardiac evaluation 07/2023 Arthritis Rectocele Cystocele, midline Surgical History History of spinal fusion T8-T12 Decompression Fusion (07/10/23): Grade view 1, Tan#2, ETT 7.0 at [facility] History of colonoscopy History of cholecystectomy History of total shoulder replacement Right History of total knee replacement R/L Family History Father COPD (chronic obstructive pulmonary disease) Mother Breast cancer Other No family history of adverse response to anesthesia Denies family history of Ovarian cancer Prostate cancer Myocardial infarction Colorectal cancer Social History Smoking Status: Former smoker Second Hand Exposure: No; Do You Dip or Chew Tobacco: No; Hx Alcohol Use: Yes Alcohol type: wine Alcohol Intake Frequency: Monthly or Less Hx Substance Use: No Preferred Language: Czech Communication Ability: Effective Visual Impairment: No Limitations Hearing Ability: Normal 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: No Beliefs That Will Affect Care: None marital status: / Current Living Situation: Alone Current Living Situation Comment: one level house current occupational status: retired How many Children do You have: 2 How many Children do You have Comment: Feels Safe at Home: Yes Childhood Exposure to Second-Hand Smoke: Yes Diet: regular caffeine: Yes during the past year weight has: remained stable Dental Care, Regularly: Yes Physical Activity Frequency: Daily Seatbelt Use: always Sunscreen Use: Yes Do you think of yourself as: straight/heterosexual Gender Identity: Female Assistive Devices: Cane Review of Systems All systems reviewed & are unremarkable except as noted in HPI & below. Physical Exam On physical examination of left shoulder, she has decreased range of motion and crepitus throughout.. Constitutional WD/WN, vitals as above Eyes PERRL, conjunctivae normal, anicteric sclerae ENMT external ear and nose normal, oropharynx normal Neck trachea midline, no thyromegaly Respiratory normal respiratory effort Cardiovascular RRR, no murmur, no edema Gastrointestinal (Abdomen) normal bowel sounds, soft, nontender, no hepatosplenomegaly Psychiatric A+Ox3, euthymic affect Results & Data Results & Data Laboratory Results . Diagnostic Findings X-rays of the left shoulder show advanced osteoarthritis with joint space narrowing, osteophyte formation, and [id number] articulation. PG Care Time/CCT Total # of Minutes Spent Total Time Spent with Patient: Total time spent is greater than 50% in coordination of care (as documented) at patient's floor/unit and/or counseling patient: Coding Level of Care Code None Diagnoses Osteoarthritis of left shoulder M19.012
[~2024-04-29 07:47] MED LIST changes: -ACET-1256 PO; -ASPI-319 PO; -ATOR-54 PO; -B-CO1CAP5 PO; -BIOT1TAB7 PO; +BUPIVACAINE 0.5 % 5 MG/1 ML PF 10ML VIAL ONE; -CALCTAB65 PO; -CHOL20005 PO; -COEN1CAP10 PO; -MAGNTAB17 PO; -MULT-506 PO; -OXYC1TAB3 PO; -RXC5 PO; -SNK PO; +SODIUM CHLORIDE 0.9% PF INJ 10 ML VIAL ONE
[2024-04-29] MEDS ORDERED: fentaNYL citrate PF 100 MCG/2 ML VIAL ONE (08:34)
[2024-04-29] MEDS: GABAPENTIN 300 MG CAP PO SCH (08:40)
[2024-04-29] MEDS: ACETAMINOPHEN 500 MG TAB PO SCH ×2 (08:40→14:58)
[2024-04-29] MEDS: FAMOTIDINE 20 MG TAB PO SCH (08:40)
[2024-04-29] MEDS: LR 15ML/HR IV SCH (08:56)
[2024-04-29] MEDS: dexAMETHasone**PF** 10 MG/ML VIAL IV SCH (08:56)
[2024-04-29] MEDS: LR 60ML/HR IV SCH (08:57)
--- NOTE | 2024-04-29 09:02 | History & Physical Bridge Note ---
Date of Service April 29, 2024 History & Physical Bridge Note I have examined the patient, reviewed the History & Physical and in the interval since the performance of the History & Physical I have noted the following changes of clinical significance: no changes noted
[2024-04-29] MEDS ORDERED: PHENYLEPHRINE HCL 10 MG/ML VIAL ONE (09:05)
[2024-04-29] MEDS ORDERED: ONDANSETRON INJ 2 MG/ML 2 ML VIAL ONE (09:05)
[2024-04-29] MEDS ORDERED: LIDOCAINE 2% 2 ML VIAL/AMP(20MG/ML) INFIL ONE (09:05)
[2024-04-29] MEDS ORDERED: PROPOFOL IV EMULSION 10 MG/ML 20 ML VIAL IV ONE (09:05)
[2024-04-29] MEDS ORDERED: ATROPINE SULFATE 0.1 MG/ML 10ML SYR IV PRN (09:38)
[2024-04-29] MEDS ORDERED: ONDANSETRON INJ 2 MG/ML 2 ML VIAL IV PRN ×2 (09:38→14:16)
[2024-04-29] MEDS ORDERED: MIDAZOLAM HCL 1 MG/ML 2ML VIAL ONE (09:40)
[2024-04-29] MEDS: TRANEXAMIC ACID 1,000 MG **IV Pre-op IV SCH (09:42)
[2024-04-29] MEDS: ceFAZolin 2000MG 2,000 MG/15 ML SYR IV SCH ×2 (10:01→17:58)
[2024-04-29] MEDS ORDERED: ETOMIDATE 2 MG/ML 20 ML VIAL IV ONE (10:37)
[2024-04-29] MEDS: ROPIV 0.5% 246mg, Ketorolac 30mg, EPINEPHrine 0.5mg in NSS INFIL SCH (10:37)
[2024-04-29] MEDS: ORTHO JOINT ANESTHETIC ONE (10:38)
[2024-04-29] MEDS: TRANEXAMIC ACID 1,000 MG **IV Intra-op IV SCH (10:56)
--- NOTE | 2024-04-29 11:01 | Operative Report ---
PG Post Operative Report Pre & Post Diagnosis Operation Date: 04/29/24 10:00 Pre-Op Diagnosis: Degenerative Joint Disease Left Shoulder with tendinopathy long head of the biceps tendon Post-Op Diagnosis: Degenerative Joint Disease Left Shoulder with tendinopathy long head of the biceps tendon I identified the patient and participated in the time-out.: Yes Procedure Operation Date: 04/29/24 10:00 Actual Procedures p Left Reverse Total Shoulder Arthroplasty(Left) with open biceps tenodesis as a distinct and separate procedure (modifier 59)- Darinel Muhammad DO Surgeon Darinel Muhammad DO Implementation Services Analyst Darinel Miranda PA-C Estimated Blood Loss 100 Findings Consistent with Post-Op Diagnosis Specimens Left humeral head Description of Procedure A CPT code modifier 59: The long head of the biceps tendon was enlarged and inflamed consistent with tendinopathy. A tenodesis was opted. This was a separate and distinct portion of the procedure. For these reasons, a CPT code modifier 59 will be added to this case. Implants used: I used a [employer] Comprehensive reverse total shoulder arthroplasty system with a size 9 press fit micro humeral stem, a +6 offset humeral tray and a +3 retentive humeral bearing, a 25 mm baseplate with a 6.5 mm central screw and superior and inferior locking screws, and a size 36 mm eccentric glenosphere. Mart arrived at [facility] for the above procedure. She was seen in the preoperative holding area and the operative extremity was identified and signed. She was given a preoperative antibiotic, TXA, and an interscalene nerve block. She was taken back to the operating room, laid on table in supine position, and put under general anesthesia. She was then put into the beachchair position. The shoulder was then prepped and draped in sterile fashion. A timeout was done and the patient and the operative extremity was properly identified. A deltopectoral approach was used. Dissection was taken down through the fascia and the deltoid was retracted laterally and the conjoined tendon was retracted medially. The anterior shoulder was exposed. The biceps groove was opened up and the biceps tendon was examined extensively. The biceps tendon demonstrated enlargement and inflammatory changes consistent with longstanding inflammation in the context of osteoarthritis and cuff arthropathy. The long head of the biceps tendon was then tenodesed to the upper border of the pectoralis major. This was a separate and distinct portion of the procedure. The subscapularis was then directly released off the lesser tuberosity with a peel technique. The inferior capsule was released and the humeral head was dislocated. A canal finding reamer was sent down the center of the humeral canal. Sequential reaming up to a size 9 reamer was done. Off that reamer, a proximal humeral resection guide was placed. The proximal humerus was resected at 135 of inclination and 25 of retroversion. Osteophytes were then removed and the glenoid was exposed. Time was spent doing a complete capsular and labral release. The glenoid guide was then placed in the inferior aspect of the glenoid. A 3.2 mm Steinmann pin was then placed into the glenoid vault at 10 of inclination. The glenoid baseplate was then reamed. The final size 25 mm baseplate was then impacted in the place. A 6.5 mm central screw was then placed followed by superior and inferior locking screws. A 36 mm eccentric glenosphere was then impacted into place. Surrounding soft tissues were then injected with 100 cc an orthopedic pain control cocktail. The proximal humerus was then exposed. Sequential broaching of the humerus up to a size 9 broach was done. Off that broach a +6 offset and +3 retentive humeral tray was trialed. The shoulder was then reduced, brought through a full range of motion, and felt to be stable. The shoulder was then dislocated and the broach was removed. The final size 9 micro press-fit humeral stem was then impacted into place. A +3 retentive humeral bearing was then snapped onto a +6 offset humeral tray. The humeral tray was then impacted onto the humeral stem. The shoulder was once again reduced, brought through a full range of motion, and felt to be stable. The subscapularis was poor quality and unable to be repaired. A dilute betadyne lavage was then done for 3 minutes. The joint was then irrigated with normal saline solution. Hemostasis was obtained. The interval was closed with 2-0 Vicryl suture. The skin was then closed with 2-0 Vicryl and juan j. A Silverlon dressing was placed and the arm was rested in a regular arm sling. She was then extubated and transferred to a hospital bed. She taken to the postanesthesia care unit in stable condition. She tolerated the procedure well. Darinel Miranda PA-C, was present for the entire procedure. He was critical for patient positioning, prepping, draping, retraction exposure, wound closure and application of sterile dressing. I attest to the content of the Intraoperative Record and any orders documented therein. Any exceptions are noted below.
[2024-04-29] MEDS: KETOROLAC 30 MG/ML VIAL IV PRN (11:27)
[2024-04-29] MEDS: fentaNYL citrate PF 100 MCG/2 ML VIAL IV PRN (11:28)
--- NOTE | 2024-04-29 12:26 | Anesthesiology Progress Note ---
Date of Service April 29, 2024 Anesthesia Post Procedure Vital Signs Vital Signs: Temp Pulse Resp BP Pulse Ox O2 Del Method O2 Flow Rate 04/29/24 12:15 36.4 C L 77 19 123/72 96 Nasal Cannula 2 04/29/24 12:05 78 18 135/77 97 Nasal Cannula 2 04/29/24 11:55 75 14 136/79 98 Nasal Cannula 2 04/29/24 11:45 77 12 150/78 H 98 Nasal Cannula 2 04/29/24 11:35 90 14 142/81 H 99 Nasal Cannula 2 04/29/24 11:25 84 17 150/92 H 93 Room Air 04/29/24 11:17 36.0 C L 91 H 16 147/108 H 99 Oxymask 4 Pain Intensity Left Shoulder: Pain Intensity: 5 Left Hand: Pain Intensity: 1 Transfer of Care Handoff Completed per policy Notes Mental Status: alert / awake / arousable Patient Amnestic to Procedure: Yes Nausea / Vomiting: adequately controlled Pain: adequately controlled Airway Patency, RR, SpO2: stable & adequate BP & HR: stable & adequate Hydration State: stable & adequate Anesthetic Complications: no major complications apparent
[2024-04-29] MEDS ORDERED: MAGNESIUM HYDROXIDE SUSP 30 ML UDC PO PRN (14:16)
[2024-04-29] MEDS ORDERED: HYDROmorphone INJ 0.5 MG/0.5 ML SYR IV PRN (14:16)
[2024-04-29] MEDS ORDERED: oxyCODONE HCL IR 5 MG TAB (IMMEDIATE RELEASE) PO PRN (14:16)
[2024-04-29] MEDS ORDERED: NALOXONE HCL 0.4 MG/1 ML VIAL/CARP IV PRN (14:16)
[2024-04-29] MEDS ORDERED: bisacodyL 10 MG SUPP PR PRN (14:16)
[2024-04-29] MEDS ORDERED: METOCLOPRAMIDE HCL INJ 5 MG/ML 2 ML VIAL IV PRN (14:16)
--- NOTE | 2024-04-29 14:43 | XRay Report ---
LEFT SHOULDER 2 VIEWS CLINICAL HISTORY: Postoperative examination. FINDINGS: 2 portable views of the left shoulder are compared to study dated 03/13/2024. The skeletal s tructures are osteopenic. A left shoulder arthroplasty is in near anatomic alignment. No acute fractu re is seen. Skin clips, subcutaneous gas, and soft tissue swelling overlying the left shoulder are ex pected postsurgical changes. Productive degenerative change is noted at the acromioclavicular joint. Atelectasis is seen at the left lung base. Fusion hardware is seen in the thoracic spine. IMPRESSION: Expected postoperative findings status post left shoulder arthroplasty. No acute fracture is seen. Electronically signed by: Aaron Vargas M.D. 04/29/2024 2:42 PM
[2024-04-29] MEDS: SODIUM CHLORIDE 0.9% 1,000 ML IV SCH (14:58)
[2024-04-29] MEDS: KETOROLAC TROMETHAMINE 15 MG/ML VIAL IV SCH (14:58)
[2024-04-29] MEDS: DOCUSATE SODIUM 100 MG CAP PO SCH (20:21)
[2024-04-29] MEDS: ATORVASTATIN 20 MG TAB PO SCH (20:21)
[2024-04-29] MEDS: SENNA 8.6 MG TAB PO SCH (20:21)
[2024-04-29 23:22] VITALS: TEMP 97.5
--- NOTE | 2024-04-30 07:13 | Orthopedic Progress Note ---
Date of Service April 30, 2024 Assessment & Plan (1) Status post reverse total replacement of left shoulder: Overall she is doing very well. She is not having much pain in the left shoulder. She will be seen by physical therapy today for ambulation and range of motion exercises. She can be discharged home later today. She will follow- up orthopedics in 2 weeks. Subjective Mart was seen and examined at bedside this morning. Overall she is doing very well. She is not having much pain in the left shoulder. She was able to get some sleep last night. She has no complaints.. Review of Systems All systems reviewed & are unremarkable except as noted in HPI & below. Physical Exam On physical examination left shoulder, the dressing is clean and dry. She is wearing her sling as instructed. She has active motion of her hand and her wrist.. Results & Data Results & Data Laboratory Results . Diagnostic Findings Postoperative x-rays of the left shoulder show the prosthesis to be in anatomic alignment without any evidence of fracture, his cage, or loosening.. PG Care Time/CCT Total # of Minutes Spent Total Time Spent with Patient: Total time spent is greater than 50% in coordination of care (as documented) at patient's floor/unit and/or counseling patient: Coding Level of Care Code 09836 Post Operative Follow-Up Diagnoses Status post reverse total replacement of left shoulder Z96.612
--- NOTE | 2024-04-30 07:14 | Discharge Summary ---
Date of Service April 30, 2024 Admission HPI (Per Admitting) Mart is a pleasant 83-year-old female who I did a right reverse arthroplasty on in 2016. She has done very well with that. Unfortunately, she is now dealing with left shoulder pain. She has difficulty doing things away from her body or up overhead. She has crepitus in her shoulder. She is unable to sleep at night. She has had cortisone injections without relief. X-rays have shown worsening osteoarthritis of the left shoulder. After failing conservative treatment, she has elected proceed with a left reverse shoulder arthroplasty. Admission Exam (Per Admitting) On physical examination of left shoulder, she has decreased range of motion and crepitus throughout.. Principal Diagnosis Same as "Discharge Diagnosis" noted below under Discharge Instructions. Discharge Exam On physical examination left shoulder, the dressing is clean and dry. She is wearing her sling as instructed. She has active motion of her hand and her wrist.. Discharge Data Procedures Performed Operation Date: 04/29/24 10:00 Actual Procedures p Left Reverse Total Shoulder Arthroplasty(Left) - Darinel Muhammad DO Ordered Studies 04/29/24 05:00 US - OR guided needle placemen Routine Hospital Course (1) Status post reverse total replacement of left shoulder: On April 29, [address] [facility] and underwent a left reverse shoulder replacement without complication. She had a general anesthetic and a left interscalene nerve block. Postoperatively she was placed in a sling and transferred to the general orthopedic floors. Her hospital course was uneventful. On postop day #1, her vital signs were stable and her pain was well-controlled. She was able to participate well with physical therapy doing ambulation and range of motion exercises. She was then discharged to home. She will follow-up with orthopedics in 2 weeks. PG Care Time/CCT Total # of Minutes Spent Total Time Spent with Patient: Total time spent is greater than 50% in coordination of care (as documented) at patient's floor/unit and/or counseling patient: Discharge Plan Discharge Items Reason For Visit: Degenerative Joint Disease Left Shoulder Discharge Diagnosis: Left reverse shoulder replacement Activity: Per Instructions section Non-emergency contact: Surgeon Call non-emergency contact if: your wound has increased redness and your wound has increased drainage Follow-up/Referrals: Rayne Boucher MD [Primary Care Provider] - Diet: Regular Addtl Attending Provider Instructions: Activity and Therapy Recommendations: * If you are using [facility] then therapy will be provided at your home until they feel you have accomplished all of your goals. * If you are using [facility] then Physical Therapy will be provided until they feel you are ready to start Outpatient Physical Therapy. * If you are not using home therapy then Outpatient Physical Therapy should start about 3-5 days from your day of surgery. Therapy will last about 8-12 weeks * Wear your sling for 3 weeks, unless otherwise instructed. You may remove your sling to shower and to dress, but otherwise, you should be in your sling at all times, including while sleeping * The shoulder replacement is very stable and you can use your hand while in the sling * You were shown a series of exercises in the hospital. Do these exercises daily including the exercises you were shown in physical therapy. Medications: * Narcotic You will likely be sent home from the hospital with a prescription for the narcotic pain medication that worked best throughout your stay. * Cefadroxil -take the antibiotic twice a day for 10 days to help prevent infection. * Other medications may be prescribed for specific circumstances. If you have any questions, please call the office at . * Resume previous home medications unless otherwise instructed Dressing Care: Leave the Silverlon dressing in place for 7 days. After 7 days you may remove the dressing. If the incision is not draining then you may leave the juan j open to air. If there is a little bit of drainage or if the juan j are getting stuck on your clothing then cover the incision with a dry dressing. The juan j will be removed at your 2 week follow-up appointment. Showering: You may shower with the Silverlon dressing in place. Do not let the shower spray hit the dressing directly. Pat the Silverlon dressing dry. If the dressing becomes wet underneath, then simply remove the dressing. Keep the incision dry until you are 7 days out from the day of surgery. After 7 days you may remove the Silverlon dressing and shower with the juan j exposed. Let soapy water run over the juan j and pat them dry. Do not scrub or soak the incision. Things To Watch For: * Drainage from the incision site that occurs more than one week after your surgery. * Increased redness at the incision site. * Fever above 102 degrees Fahrenheit. * Unusual chest pain or shortness of breath. * Call [facility] at with any of the above problems Follow-Up Visit: Follow-up with Dr. Muhammad's PA (Darinel Miranda) 2-3 weeks after your day of surgery. He will remove your juan j and answer any questions. If you have any additional questions or concerns, Dr Muhammad is usually in the office at the same time and will be available An appointment was probably scheduled when you signed-up for surgery in the office. If you have any questions call More detailed instructions as well as Frequently Asked Questions were provided in a folder by our office when you signed-up for surgery. Please review these instructions when you get home. If you have any further questions or concerns, please feel free to call the office at [phone] Pending Studies at Discharge: No Stand-Alone Forms: My [facility] Medications and DC Order Prescriptions: New tramadol 50 mg tablet 50 mg PO Q6H PRN (Reason: pain) Qty: 30 0RF cefadroxil 500 mg capsule 500 mg PO BID 10 Days Qty: 20 0RF Continued atorvastatin 20 mg tablet 20 mg PO QPM Qty: 90 1RF Prolia 60 mg/mL syringe 60 mg subcut ONCE Qty: 1 5RF Rx Instructions: once every 6 months. acetaminophen 325 mg tablet 650 mg PO Q6H PRN (Reason: Pain) multivitamin Tablet 1 tab PO QAM cholecalciferol (vitamin D3) [Vitamin D3] 10 mcg (400 unit) Tablet 10 mcg PO QAM Admission Data Admit Date/Time: 04/29/24 12:23 Attending Provider: Darinel Muhammad Admit Provider: Darinel Muhammad Primary Care Provider: Rayne Boucher
[2024-04-30 07:53] VITALS: BP 110/68; PULSE 83; RESP 16; O2SAT 92
[2024-04-30] MEDS: dexAMETHasone 4 MG TAB PO SCH (08:27)
[2024-04-30] MEDS: MULTIVITAMIN TAB PO SCH (08:31)
== END 2024-04-30 11:48 | disposition home or self-care (01) ==
LOC: 3E 07:47 → ASU 07:47